=== PATIENT | male | born 1940 | race Caucasian/White ===

== ENCOUNTER 2016-09-01 09:07 | Emergency (ER) | payer OTHER, BC ==
[2016-09-01 09:25] VITALS: BP 160/76; BMI 29.5
--- NOTE | 2016-09-01 09:27 | DR.EXTPAIN ---
HPI - Time seen Time seen: 09:23 - PCP Primary Care Physician: BASSAM URBANO - Complaint/Symptoms Chief Complaint Doctor Comments: Patient states that he started having pain in the back of left knee on yesterday that has progressively gotten worse today. Denies trauma. Chief Complaint:: PT C/O PAIN TO THE BACK OF HIS LEFT KNEE".. - Source History Provided: Patient - Mode of arrival Mode of Arrival: Wheelchair - Timing Onset of Chief Complaint: 08/28/16 PMH - PMH Past Medical History: Yes Past Medical History: Headaches, Hypertension Past Medical History Comment: PSP .. Past Surgical History: Yes Surgical History: Appendectomy, Bowel Resection, CABG/Valve Surgery, Cholecystectomy, Tonsillectomy, Lithotripsy, Other Past Surgical History Comment: BYPASS WITHOUT STENTS ... - Family History History of Family Medical Conditions: Yes Family Medical History: [place], Hypertension - Social History Does patient currently use any type of tobacco product: No Have you used tobacco products in the last 12 months: No Type of Tobacco Use: None Does any household member use tobacco: No Alcohol Use: None Do you use any recreational Drugs:: No Lives With: Family Lives Where: Home - infectious screening In the last 2 months have you had wt loss of >10#?: NO Have you had fever, night sweats or hemotysis?: No Have you traveled outside the country in the last 6 months?: No Isolation: Standard ROS - Review of Systems Eyes: No Symptoms Reported ENTM: No Symptoms Reported, Hearing Loss Cardiovascular: No Symptoms Reported Gastrointestinal/Abdominal: No Symptoms Reported Genitourinary: No Symptoms Reported Neurological: No Symptoms Reported Musculoskeletal: No Symptoms Reported Integumentary: No Symptoms Reported Hematologic/Lymphatic: No Symptoms Reported Endocrine: No Symptoms Reported Psychiatric: No Symptoms Reported All Other Systems: Reviewed and Negative PE - Vital Signs Vitals: Temperature 98.6 F Pulse Rate 61 Respiratory Rate 20 Blood Pressure [Left Arm] 167/63 Blood Pressure [Right Arm] 166/78 Blood Pressure 160/76 O2 Sat by Pulse Oximetry 94 - General General Appearance: Alert - Head Head Exam: Normal Inspection - Eyes Eye exam: Normal Appearance, PERRL, EOMI - ENT ENT Exam: Normal Exam - Neck Neck Exam: Normal Inspection - Chest Chest Inspection: Normal Inspection - Respiratory Respiratory Exam: Normal Lung Sounds Bilat Respiratory Exam: Bilateral Clear to Auscultation - Cardiovascular Cardiovascular Exam: Regular Rate, Normal Rhythm - Extremities Extremities Exam: Normal Inspection - Upper Extremities Shoulder Exam: Normal Inspection Arm Exam: Normal Inspection Elbow Exam: Normal Inspection Forearm Exam: Normal Inspection Hand Exam: Normal Inspection Neuromotor Exam: Normal Exam Neurosensory Exam: Normal Exam Hand Tendon Exam: Flexor Digitorium Profundus (Location) Upper Ext. Vascular Exam: Capillary Refill - Lower Extremities Hip/Pelvis Exam: Normal Inspection Upper Leg Exam: Normal Inspection Knee Exam: Normal Inspection Lower Leg Exam: Normal Inspection, Tenderness (left superior gastrocnemius tenderness, no erythema or warmth) Ankle Exam: Normal Inspection Foot/Toe Exam: Normal Inspection Neurovascular/Tendon Exam: Normal Capillary Refill Gait Exam: Observed and Normal - Back Back Exam: Normal Inspection, Full ROM - Neurological Neurological Exam: Alert, Oriented X3, CN II-XII Intact - Psychiatric Psychiatric Exam: Normal Affect - Skin Skin Exam: Warm, Dry, Intact ROR - Labs Reviewed Laboratory Results Reviewed?: Yes Result Diagrams: 09/01/16 09:40 09/01/16 09:40 Laboratory: WBC 6.9 X10^3/uL (3.6-10.0) 09/01/16 09:40 RBC 4.47 X10^6/uL (4.7-6.0) L 09/01/16 09:40 Hgb 14.4 g/dL (13.5-18.0) 09/01/16 09:40 Hct 41.9 % (42.0-54.0) L 09/01/16 09:40 MCV 93.7 fL (80.0-100.0) 09/01/16 09:40 MCH 32.2 pg (27.0-34.0) 09/01/16 09:40 MCHC 34.4 g/dL (33.0-35.0) 09/01/16 09:40 RDW 13.7 % (11.6-16.5) 09/01/16 09:40 Plt Count 149 X10^3/uL (150.0-450.0) L 09/01/16 09:40 MPV 9.4 fL (7.4-11.0) 09/01/16 09:40 Neut % 69.1 % (42.0-75.0) 09/01/16 09:40 Lymph % 16.9 % (21.0-51.0) L 09/01/16 09:40 [place] % 8.8 % (0.0-13.0) 09/01/16 09:40 Eos % 4.1 % (0.9-2.9) H 09/01/16 09:40 Baso % 1.1 % (0.2-1.0) H 09/01/16 09:40 Neut # 4.8 x10^3/uL (2.2-4.8) 09/01/16 09:40 Lymph # 1.2 X10^3/uL (1.3-2.9) L 09/01/16 09:40 [place] # 0.6 x10^3/uL (0.3-0.8) 09/01/16 09:40 Eos # 0.3 x10^3/uL (0.0-0.2) H 09/01/16 09:40 Baso # 0.1 X10^3/uL (0.0-0.1) 09/01/16 09:40 Absolute Nucleated RBC 0.0 /100WBC 09/01/16 09:40 D-Dimer 1510 ng/mL (0-400) H* 09/01/16 09:40 Sodium 138 mmol/L (136-145) 09/01/16 09:40 Corrected Sodium 138 mmol/L (136-145) 09/01/16 09:40 Potassium 4.0 mmol/L (3.5-5.1) 09/01/16 09:40 Chloride 104 mmol/L (98-107) 09/01/16 09:40 Carbon Dioxide 28.5 mmol/L (21-32) 09/01/16 09:40 BUN 23 mg/dL (7-18) H 09/01/16 09:40 Creatinine 1.89 mg/dL (0.70-1.30) H 09/01/16 09:40 Est GFR (MDRD) Af Amer 45 (>60) L 09/01/16 09:40 Est GFR (MDRD) Non-Af 37 (>60) L 09/01/16 09:40 Glucose 119 mg/dL (65-99) H 09/01/16 09:40 Calcium 8.7 mg/dL (8.5-10.1) 09/01/16 09:40 Corrected Calcium TNP 09/01/16 09:40 Total Bilirubin 0.30 mg/dL (0.2-1.0) 09/01/16 09:40 AST 18 Units/L (15-37) 09/01/16 09:40 ALT 15 Units/L (12-78) 09/01/16 09:40 Alkaline Phosphatase 113 Units/L (46-116) 09/01/16 09:40 Total Protein 7.2 g/dL (6.4-8.2) 09/01/16 09:40 Albumin 3.4 g/dL (3.4-5.0) 09/01/16 09:40 Globulin 3.8 g/dL (2.5-4.5) 09/01/16 09:40 Albumin/Globulin Ratio 0.9 Ratio (1.1-2.1) L 09/01/16 09:40 - XRAY XRAY Interpreted by: Radiologist (Lower Extrtemity Venous Doppler Ultrasound: The deep venous system of the left lower extremity was evaluated from the level of the common femoral vein through the popliteal vein. Normal color flow and augmentation can be observed. In addition,normal compression is seen throughout the deep venous stystem. Impression: Negative for DVT.) - Diagnosis Discharge Problem: Leg pain, posterior Qualifiers: Laterality: right Qualified Code(s): M79.604 - Pain in right leg - Discharge Plan Condition: Stable - Follow ups/Referrals Follow ups/Referrals: Wayne Mejia [Primary Care Provider] - 3 days - Instructions
[2016-09-01 09:48] LABS: BASOPHILS # (AUTO) 0.1 X10^3/uL (0.0-0.1); BASOPHILS % (AUTO) 1.1 % (0.2-1.0); EOSINOPHILS # (AUTO) 0.3 x10^3/uL (0.0-0.2); EOSINOPHILS % (AUTO) 4.1 % (0.9-2.9); HEMATOCRIT 41.9 % (42.0-54.0); HEMOGLOBIN 14.4 g/dL (13.5-18.0); LYMPHOCYTES # (AUTO) 1.2 X10^3/uL (1.3-2.9); LYMPHOCYTES % (AUTO) 16.9 % (21.0-51.0); MEAN CORPUSCULAR HEMOGLOBIN 32.2 pg (27.0-34.0); MEAN CORPUSCULAR HGB CONC 34.4 g/dL (33.0-35.0); MEAN CORPUSCULAR VOLUME 93.7 fL (80.0-100.0); MEAN PLATELET VOLUME 9.4 fL (7.4-11.0); MONOCYTES # (AUTO) 0.6 x10^3/uL (0.3-0.8); MONOCYTES % (AUTO) 8.8 % (0.0-13.0); NEUTROPHILS # (AUTO) 4.8 x10^3/uL (2.2-4.8); NEUTROPHILS % (AUTO) 69.1 % (42.0-75.0); PLATELET COUNT 149 X10^3/uL (150.0-450.0); RED BLOOD COUNT 4.47 X10^6/uL (4.7-6.0); RED CELL DISTRIBUTION WIDTH 13.7 % (11.6-16.5); WHITE BLOOD COUNT 6.9 X10^3/uL (3.6-10.0)
[2016-09-01 10:01] LABS: ALANINE AMINOTRANSFERASE 15 Units/L (12-78); ALBUMIN 3.4 g/dL (3.4-5.0); ALKALINE PHOSPHATASE 113 Units/L (46-116); ASPARTATE AMINO TRANSFERASE 18 Units/L (15-37); BLOOD UREA NITROGEN 23 mg/dL (7-18); CALCIUM 8.7 mg/dL (8.5-10.1); CARBON DIOXIDE 28.5 mmol/L (21-32); CHLORIDE 104 mmol/L (98-107); COR NA(FOR HYPERGLY) 138 mmol/L (136-145); CREATININE 1.89 mg/dL (0.70-1.30); GLUCOSE 119 mg/dL (65-99); SODIUM 138 mmol/L (136-145); TOTAL PROTEIN 7.2 g/dL (6.4-8.2); eGFR BLACK RACES 45 (>60); eGFR NON BLACK RACES 37 (>60)
[2016-09-01 10:26] LABS: D DIMER 1510 ng/mL (0-400)
--- NOTE | 2016-09-01 11:34 | VAS ---
HISTORY: Left leg pain Study: Left lower extremity venous Doppler ultrasound Comparison: None TECHNIQUE: Multiple hardin scale and color flow Doppler images of the deep venous system were obtaine d of the left lower extremity. FINDINGS: The deep venous system of the left lower extremity was evaluated from the level of the common femora l vein through the popliteal vein. Normal color flow and augmentation can be observed. In addition , normal compression is seen throughout the deep venous system. IMPRESSION: 1. Negative for DVT. Reported By:
== END 2016-09-01 12:11 | disposition home or self-care (01) ==
LOC: ER 09:25
DX: M79.604 Pain in right leg (principal)
CPT/HCPCS: 36415; 80053; 85025; 85378; 93971; 99283

== ENCOUNTER 2016-11-21 01:55 | Observation (INO) | payer OTHER, BC ==
[2016-11-21] MEDS ORDERED: MORPHINE SULFATE INJ 4 MG ONE ×2 (02:11→02:21)
[2016-11-21] MEDS ORDERED: NS 1000 ML 1,000 ML ONE (02:11)
[2016-11-21] MEDS ORDERED: MORPHINE SULFATE INJ 4 MG IVP ONE ×2 (02:16→02:20)
--- NOTE | 2016-11-21 02:20 | DR.CP ---
HPI - Time Seen Time seen: 02:10 - Complaint Chief Complaint Doctor Comments: Patient states that he was in his usual state of health until last week when he purchuase a plow and had been plowing most of the day last week. Since then he has been very weak. Today he could not get off the commode due to weakness. brought him in to be evaluated. She reports that he had mid sternal chest and was very diaphoretic. and weak. He had a cath two years ago. He had five by-pass at [facility]. He denies smoking, drinking and recently started drinking coffee. PMH - PMH Past Medical History: Headaches, Hypertension Past Surgical History: Yes Surgical History: Appendectomy, Bowel Resection, CABG/Valve Surgery, Cholecystectomy, Tonsillectomy, Lithotripsy, Other - Family History Family Medical History: [place], Hypertension - Social History Do you use any recreational Drugs:: No ROS - Review of Systems Constitutional: negative: Diaphoresis Eyes: No Symptoms Reported ENTM: No Symptoms Reported Respiratoy: No Symptoms Reported Cardiovascular: See HPI, Chest Pain Gastrointestinal/Abdominal: No Symptoms Reported Genitourinary: No Symptoms Reported Neurological: No Symptoms Reported Musculoskeletal: No Symptoms Reported Integumentary: No Symptoms Reported Hematologic/Lymphatic: No Symptoms Reported Endocrine: No Symptoms Reported Psychiatric: No Symptoms Reported All Other Systems: Reviewed and Negative PE - Vitals Vitals: Pulse Rate [Apical] 70 Pulse Rate 70 Respiratory Rate 16 Blood Pressure [Left Arm] 100/55 Blood Pressure [Right Arm] 166/78 Blood Pressure 112/59 O2 Sat by Pulse Oximetry 97 - General Limitations: No Limitations General Appearance: Alert, In Distress - Head Head Exam: Normal Inspection, Atraumatic - Eyes Eye exam: Normal Appearance, PERRL, EOMI - ENT ENT Exam: Normal Exam, Normal Oropharynx - Chest Chest Inspection: Normal Inspection - Respiratory Respiratory Exam: Normal Lung Sounds Bilat Respiratory Exam: Bilateral Clear to Auscultation - Cardiovascular Cardiovascular Exam: Regular Rate, Normal Rhythm Pulse: Normal, Radial Edema: 1 (+) - Abdominal Exam Abdominal Exam: Normal Inspection, Normal Bowel Sounds Abdominal Tenderness: negative: RUQ, RLQ, LUQ, LLQ, Epigastrium, Suprapubic, Diffuse, Mild, Moderate, Severe, Other - Extremities Extremities Exam: Normal Inspection, Full ROM - Back Back Exam: Normal Inspection - Neurologic Neurological Exam: Alert, Oriented X3, CN II-XII Intact - Psychiatric Psychiatric Exam: Normal Affect, Normal Mood - Skin Skin Exam: Warm, Dry, Intact Course - Reevaluation 1st: Improved - Consultation Called: 15:00 (Dr Ardon recommended admission for chest pain protocol) ROR - Labs Reviewed Result Diagrams: 11/21/16 02:06 11/21/16 02:06 Laboratory: WBC 7.2 X10^3/uL (3.6-10.0) 11/21/16 02:06 RBC 4.33 X10^6/uL (4.7-6.0) L 11/21/16 02:06 Hgb 14.0 g/dL (13.5-18.0) 11/21/16 02:06 Hct 41.3 % (42.0-54.0) L 11/21/16 02:06 MCV 95.3 fL (80.0-100.0) 11/21/16 02:06 MCH 32.3 pg (27.0-34.0) 11/21/16 02:06 MCHC 33.9 g/dL (33.0-35.0) 11/21/16 02:06 RDW 13.8 % (11.6-16.5) 11/21/16 02:06 Plt Count 160 X10^3/uL (150.0-450.0) 11/21/16 02:06 MPV 9.5 fL (7.4-11.0) 11/21/16 02:06 Neut % 67.0 % (42.0-75.0) 11/21/16 02:06 Lymph % 16.8 % (21.0-51.0) L 11/21/16 02:06 [place] % 10.7 % (0.0-13.0) 11/21/16 02:06 Eos % 4.5 % (0.9-2.9) H 11/21/16 02:06 Baso % 1.0 % (0.2-1.0) 11/21/16 02:06 Neut # 4.8 x10^3/uL (2.2-4.8) 11/21/16 02:06 Lymph # 1.2 X10^3/uL (1.3-2.9) L 11/21/16 02:06 [place] # 0.8 x10^3/uL (0.3-0.8) 11/21/16 02:06 Eos # 0.3 x10^3/uL (0.0-0.2) H 11/21/16 02:06 Baso # 0.1 X10^3/uL (0.0-0.1) 11/21/16 02:06 Absolute Nucleated RBC 0.1 /100WBC 11/21/16 02:06 INR Target Range - 11/21/16 02:06 INR 1.06 (0.8-1.3) 11/21/16 02:06 Sodium 138 mmol/L (136-145) 11/21/16 02:06 Corrected Sodium 139 mmol/L (136-145) 11/21/16 02:06 Potassium 4.0 mmol/L (3.5-5.1) 11/21/16 02:06 Chloride 104 mmol/L (98-107) 11/21/16 02:06 Carbon Dioxide 22.1 mmol/L (21-32) 11/21/16 02:06 BUN 25 mg/dL (7-18) H 11/21/16 02:06 Creatinine 2.15 mg/dL (0.70-1.30) H 11/21/16 02:06 Est GFR (MDRD) Af Amer 39 (>60) L 11/21/16 02:06 Est GFR (MDRD) Non-Af 32 (>60) L 11/21/16 02:06 Glucose 147 mg/dL (65-99) H 11/21/16 02:06 Calcium 8.6 mg/dL (8.5-10.1) 11/21/16 02:06 Corrected Calcium TNP 11/21/16 02:06 Magnesium 1.7 mg/dL (1.7-2.9) 11/21/16 02:06 Total Bilirubin 0.40 mg/dL (0.2-1.0) 11/21/16 02:06 AST 18 Units/L (15-37) 11/21/16 02:06 ALT 9 Units/L (12-78) L 11/21/16 02:06 Alkaline Phosphatase 126 Units/L (46-116) H 11/21/16 02:06 Creatine Kinase 97 Units/L (39-308) 11/21/16 02:06 CK-MB (CK-2) < 1.0 ng/mL (0-4.0) 11/21/16 02:06 CK/CKMB % Calc 1.0 % (<4) 11/21/16 02:06 Troponin I 0.04 ng/mL (0-1.5) 11/21/16 02:06 Total Protein 6.9 g/dL (6.4-8.2) 11/21/16 02:06 Albumin 3.4 g/dL (3.4-5.0) 11/21/16 02:06 Globulin 3.5 g/dL (2.5-4.5) 11/21/16 02:06 Albumin/Globulin Ratio 1.0 Ratio (1.1-2.1) L 11/21/16 02:06 - XRAY XRAY Interpreted by: Radiologist (Chest: There is no pneumothorax. There is cardiomegaly with mild increased interstitial markings. Left lower lung infiltrate possible. Impression: Cardiomegaly with chronic lung change without severe edema. Left lung infiltrate not excluded. Follow up with PA and lateral chest) - Diagnosis Discharge Problem: Chest pain, mid sternal - Discharge Plan Condition: Stable - Follow ups/Referrals Follow ups/Referrals: Wayne Mejia [Primary Care Provider] - 3 days - Instructions
[2016-11-21 02:27] LABS: BASOPHILS # (AUTO) 0.1 X10^3/uL (0.0-0.1); EOSINOPHILS # (AUTO) 0.3 x10^3/uL (0.0-0.2); EOSINOPHILS % (AUTO) 4.5 % (0.9-2.9); HEMATOCRIT 41.3 % (42.0-54.0); LYMPHOCYTES # (AUTO) 1.2 X10^3/uL (1.3-2.9); LYMPHOCYTES % (AUTO) 16.8 % (21.0-51.0); MEAN CORPUSCULAR HEMOGLOBIN 32.3 pg (27.0-34.0); MEAN CORPUSCULAR HGB CONC 33.9 g/dL (33.0-35.0); MEAN CORPUSCULAR VOLUME 95.3 fL (80.0-100.0); MEAN PLATELET VOLUME 9.5 fL (7.4-11.0); MONOCYTES # (AUTO) 0.8 x10^3/uL (0.3-0.8); MONOCYTES % (AUTO) 10.7 % (0.0-13.0); NEUTROPHILS # (AUTO) 4.8 x10^3/uL (2.2-4.8); PLATELET COUNT 160 X10^3/uL (150.0-450.0); RED BLOOD COUNT 4.33 X10^6/uL (4.7-6.0); RED CELL DISTRIBUTION WIDTH 13.8 % (11.6-16.5); WHITE BLOOD COUNT 7.2 X10^3/uL (3.6-10.0)
[2016-11-21 02:40] LABS: BLOOD UREA NITROGEN 25 mg/dL (7-18); CALCIUM 8.6 mg/dL (8.5-10.1); CARBON DIOXIDE 22.1 mmol/L (21-32); CHLORIDE 104 mmol/L (98-107); COR NA(FOR HYPERGLY) 139 mmol/L (136-145); CREATININE 2.15 mg/dL (0.70-1.30); SODIUM 138 mmol/L (136-145); TROPONIN I 0.04 ng/mL (0-1.5); eGFR BLACK RACES 39 (>60); eGFR NON BLACK RACES 32 (>60)
[2016-11-21 02:59] LABS: ALANINE AMINOTRANSFERASE 9 Units/L (12-78); ALBUMIN 3.4 g/dL (3.4-5.0); ALKALINE PHOSPHATASE 126 Units/L (46-116); ASPARTATE AMINO TRANSFERASE 18 Units/L (15-37); CREATINE KINASE 97 Units/L (39-308); CREATINE KINASE MB < 1.0 ng/mL (0-4.0); MAGNESIUM 1.7 mg/dL (1.7-2.9); TOTAL PROTEIN 6.9 g/dL (6.4-8.2)
[2016-11-21] MEDS ORDERED: NS 1000 ML 1,000 ML IV SCH ×2 (03:00→06:00)
--- NOTE | 2016-11-21 04:14 | RAD ---
Six chest AP portable Indication: Chest pain Comparison: 05/17/2014. Findings: There is no pneumothorax. There is cardiomegaly with mild increased interstitial markings. Left lower lung infiltrate possible. Impression: Cardiomegaly with chronic lung change without severe edema. Left lung infiltrate not excl uded. Follow-up with PA and lateral chest. Reported By:
[2016-11-21] MEDS ORDERED: NS 1000 ML 1,000 ML IV ONE (04:26)
[2016-11-21] MEDS ORDERED: LASIX IVP ONE (04:35)
[2016-11-21] MEDS ORDERED: LASIX ONE (04:42)
[2016-11-21 06:27] VITALS: BMI 30.7
[2016-11-21 06:32] LABS: BILIRUBIN,URINE NEGATIVE (NEGATIVE); BLOOD/HEMOGLOBIN,URINE NEGATIVE (NEGATIVE); GLUCOSE, URINE NEGATIVE (NEGATIVE); KETONES,URINE NEGATIVE (NEGATIVE); LEUKOCYTE ESTERASE ,URINE NEGATIVE (NEGATIVE); NITRITES,URINE NEGATIVE (NEGATIVE); PROTEIN,URINE NEGATIVE (NEGATIVE); UROBILINOGEN,URINE NORMAL (NORMAL)
[2016-11-21] MEDS: NEURONTIN TAB 600 MG PO SCH ×3 (06:43→21:31)
[2016-11-21] MEDS: SINEMET (PLAIN) 25/100 MG PO SCH ×3 (06:43→21:32)
[2016-11-21 07:12] LABS: APPEARANCE,URINE CLEAR (CLEAR); COLOR,URINE YELLOW (YELLOW)
[2016-11-21 07:13] LABS: BACTERIA,URINE NEGATIVE /HPF (NEGATIVE); RBC,URINE NONE SEEN /HPF (NEGATIVE); SQUAMOUS EPITHELIAL CELL,UR RARE /HPF (NEGATIVE)
[2016-11-21] MEDS: MORPHINE SULFATE INJ 2 MG INJ IVP PRN (07:46)
[2016-11-21] MEDS ORDERED: PATIENT'S HOME MEDICATION (Losartan Potassium [Losartan Potassium] 1 TAB) PO SCH (09:00)
[2016-11-21] MEDS ORDERED: PATIENT'S HOME MEDICATION (Cholecalciferol (Vitamin D3) [Vitamin D3] 1 TAB) PO SCH (09:00)
[2016-11-21] MEDS: DUONEB 0.5 MG/3 MG NEB SCH ×4 (09:00→20:58)
[2016-11-21 09:09] LABS: CKMB % 1.2 % (<4); CREATINE KINASE MB 1.2 ng/mL (0-4.0); TROPONIN I 0.08 ng/mL (0-1.5)
[2016-11-21] MEDS ORDERED: AYR NASAL DROPS ONE (09:17)
[2016-11-21] MEDS: VITAMIN D3 PO SCH (09:21)
[2016-11-21] MEDS: ASPIRIN EC 81 MG PO SCH (09:22)
[2016-11-21] MEDS: TOPROL XL PO SCH (09:22)
[2016-11-21] MEDS: ZETIA TAB 10 MG PO SCH (09:22)
[2016-11-21] MEDS: SYNTHROID 175 mcg TAB PO SCH (09:22)
[2016-11-21] MEDS: COZAAR PO SCH (09:22)
[2016-11-21] MEDS: TORADOL 60 MG VIAL IM ONE ×2 (10:00→10:42)
--- NOTE | 2016-11-21 10:38 | DR.H&P ---
H&P - History & Physical for Day of: H&P Date: 11/21/16 - Chief Complaint Chief Complaint: CHEST PAIN - Allergies Allergies/Adverse Reactions: Allergies Allergy/AdvReac Type Severity Reaction Status Date / Time codeine Allergy Verified 11/21/16 02:25 esomeprazole Allergy Verified 11/21/16 02:25 hydrocodone Allergy Verified 11/21/16 02:25 omeprazole Allergy Verified 11/21/16 02:25 oxycodone Allergy Verified 11/21/16 02:25 Cheggkm-Dvu-Cgv Reductase Allergy Verified 11/21/16 02:25 Inhibitor tramadol Allergy Verified 11/21/16 02:25 zolpidem [From Ambien] Allergy Verified 11/21/16 02:25 IVP DYE Allergy Intermediate Uncoded 11/21/16 02:25 - History of Present Illness History of Present Illness: SI A 76 YEAR OLD PATIENT OF OURS WHO PRESENTED TO THE EMERGENCY ROOM VIA EMS WITH COMPLAINTS OF MID STERNAL CHEST PAIN THAT RADIATES TO THE LEFT ARM, SHORTNESS OF BREATH, AND GENERALIZED WEAKNESS. ON ARRIVAL TO THE ER, PATIENT WAS DIAPHORETIC AND WEAK. PATIENT REPORTS THAT PAIN IS STABBING IN CHARACTERISTIC AND RATES PAIN 2/10. PATIENTS REPORTS THAT PATIENT HAS BEEN WORKING OUTSIDE ON THE TRACTOR MOST OF THE WEEK. HE REPORTS A HISTORY OF CORONARY ARTERY DISEASE. HE HAS HAD FIVE BYPASSED IN THE PAST. ON EXAMINATION, LUNGS ARE NOTED CLEAR TO AUSCULTATION. ABDOMEN IS SOFT, ROUND, AND NON-TENDER WITH NORMAL BOWEL SOUNDS NOTED IN ALL QUADRANTS. ON ARRIVAL, VITAL SIGNS WER [id number]%-146/81. LABS, XRAY, AND EKG WERE OBTAINED. ABNORMAL LAB VALUES INCLUDE THE FOLLOWING: RBC 4.33, HCT 41.3, BUN 25 , CREATININE 2.15, GLUCOSE 147, ALT 9, ALK PHOS 126. CARDIAC PROFILES NEGATIVE AT THIS TIME. EKG REPORTED SINUS RHYTHM, RBBB WITH HR 71. CHEST XRAY REPORTED CARDIOMEGALY WITH CHRONIC LUNG CHANGES WITHOUT SEVERE EDEMA. LEFT LUNG INFILTRATE NOT EXCLUDED. PATIENT WAS GIVEN MORPHINE 4MG IV, NORMAL SALINE BOLUS , AND LASIX 20MG IV X 1 IN THE ER. WE ADMITTED PATIENT FOR FURTHER EVALUATION AND TREATMENT TO RULE OUT ACUTE MIOCARDIAL INFARCTION. WE PLAN TO OBTAIN SERIAL CARDIAC ENZYMES AND EKGS. WE WILL FOLLOW UP WITH AM LABS AND CONTINUE TO MONITOR PATIENT. - Past Medical History Past Medical History: Headaches, Hypertension Additional Medical History: Hx Diverticulosis, Atrial Fibrillation - Past Surgical History Surgical History: Appendectomy, Bowel Resection, CABG/Valve Surgery, Cholecystectomy, Lithotripsy, Other Additional Surgical History: Cardiac Ablation - Family History Family Medical History: [place], Hypertension - Social History Does patient currently use any type of tobacco product: No Have you used tobacco products in the last 12 months: No Type of Tobacco Use: None Does any household member use tobacco: No Alcohol Use: None Drug Use: None - Review of Systems Constitutional: Weakness Eyes: No Symptoms Reported ENT: No Symptoms Reported Respiratory: No Symptoms Reported, Shortness of Breath Cardiovascular: Chest Pain, See HPI Gastrointestinal: No Symptoms Reported Genitourinary: No Symptoms Reported Musculoskeletal: No Symptoms Reported Skin: No Symptoms Reported Neurological: Weakness - Physical Exam Vital Signs: Temperature 97.3 F Pulse Rate [Left Brachial] 105 Pulse Rate [Apical] 71 Pulse Rate 70 Respiratory Rate 22 Blood Pressure [Left Arm] 146/81 Blood Pressure [Right Arm] 166/78 Blood Pressure 112/59 O2 Sat by Pulse Oximetry 95 Oriented: Normal Eyes: Normal Ear: Normal Nose: Normal Throat: Normal Respiratory: Clear Throughout Cardiovascular: Normal : Normal Auscultation: Bowel Sounds: Normal Palpation: Normal Tenderness: Normal Skin: Normal Musculoskeletal: Normal Psychiatric: Normal Mood Description: Calm Affect: Normal Speech Pattern: Clear - Assessment/Plan (1) Chest pain Qualifiers: Chest pain type: unspecified Qualified Code(s): R07.9 - Chest pain, unspecified Status: Acute Plan: TELEMETRY, ASA 81MG DAILY, MORPHINE 1-2MG IV Q4H PRN, SERIAL CARDIAC ENZYMES AND EKG, CONTINUE TO MONITOR
[2016-11-21] MEDS: LEVAQUIN PREMIX IV 500 MG 500 MG/100 ML BAG IV SCH (10:42)
[2016-11-21] MEDS: FORTAZ or TAZICEF INJ 1 GM in NS 50 ML IV + SPIKE MINIBAG* 50 ML IV SCH ×3 (10:42→21:32)
[2016-11-21] MEDS ORDERED: NS 1/2 1000 ML IV 1,000 ML IV ONE (11:19)
[2016-11-21] MEDS: ROBITUSSIN DM PO SCH ×3 (14:18→21:30)
[2016-11-21] MEDS: NS 1/2 1000 ML IV 1,000 ML IV SCH (14:21)
[2016-11-21 14:29] LABS: CKMB % 1.3 % (<4); CREATINE KINASE MB 1.2 ng/mL (0-4.0); TROPONIN I 0.08 ng/mL (0-1.5)
[2016-11-21] MEDS ORDERED: DOCUSATE SODIUM PO SCH (21:00)
[2016-11-21] MEDS ORDERED: HYTRIN PO SCH (21:00)
[2016-11-21] MEDS ORDERED: TERAZOSIN HCL PO SCH (21:00)
[2016-11-22] MEDS: DUONEB 0.5 MG/3 MG NEB SCH ×3 (01:19→08:23)
[2016-11-22] MEDS: MORPHINE SULFATE INJ 2 MG INJ IVP PRN (03:47)
[2016-11-22] MEDS: FORTAZ or TAZICEF INJ 1 GM in NS 50 ML IV + SPIKE MINIBAG* 50 ML IV SCH (05:24)
[2016-11-22] MEDS: NEURONTIN TAB 600 MG PO SCH (05:24)
[2016-11-22] MEDS: SINEMET (PLAIN) 25/100 MG PO SCH (05:27)
[2016-11-22 05:32] LABS: BASOPHILS # (AUTO) 0.1 X10^3/uL (0.0-0.1); BASOPHILS % (AUTO) 0.9 % (0.2-1.0); EOSINOPHILS # (AUTO) 0.2 x10^3/uL (0.0-0.2); HEMATOCRIT 37.8 % (42.0-54.0); LYMPHOCYTES # (AUTO) 1.3 X10^3/uL (1.3-2.9); LYMPHOCYTES % (AUTO) 17.3 % (21.0-51.0); MEAN CORPUSCULAR HEMOGLOBIN 32.7 pg (27.0-34.0); MEAN CORPUSCULAR HGB CONC 34.5 g/dL (33.0-35.0); MEAN CORPUSCULAR VOLUME 94.8 fL (80.0-100.0); MEAN PLATELET VOLUME 9.8 fL (7.4-11.0); MONOCYTES # (AUTO) 0.8 x10^3/uL (0.3-0.8); MONOCYTES % (AUTO) 11.1 % (0.0-13.0); NEUTROPHILS # (AUTO) 4.9 x10^3/uL (2.2-4.8); NEUTROPHILS % (AUTO) 67.7 % (42.0-75.0); PLATELET COUNT 145 X10^3/uL (150.0-450.0); RED BLOOD COUNT 3.98 X10^6/uL (4.7-6.0); RED CELL DISTRIBUTION WIDTH 14.2 % (11.6-16.5); WHITE BLOOD COUNT 7.3 X10^3/uL (3.6-10.0)
[2016-11-22 06:28] LABS: ALANINE AMINOTRANSFERASE 10 Units/L (12-78); ALBUMIN 2.9 g/dL (3.4-5.0); ALKALINE PHOSPHATASE 114 Units/L (46-116); ASPARTATE AMINO TRANSFERASE 16 Units/L (15-37); BLOOD UREA NITROGEN 23 mg/dL (7-18); CALCIUM 8.2 mg/dL (8.5-10.1); CARBON DIOXIDE 24.1 mmol/L (21-32); CHLORIDE 107 mmol/L (98-107); CHOL/HDL RATIO 5.1 (0.0-5.0); CHOLESTEROL 133 mg/dL (0-200); COR CA(FOR HYPOALB) 9.1 mg/dL (8.5-10.1); CREATININE 1.91 mg/dL (0.70-1.30); HDL CHOLESTEROL 26 mg/dL (40-60); SODIUM 141 mmol/L (136-145); TOTAL PROTEIN 6.2 g/dL (6.4-8.2); TRIGLYCERIDES 213 mg/dL (0-150); eGFR BLACK RACES 44 (>60); eGFR NON BLACK RACES 36 (>60)
[2016-11-22] MEDS ORDERED: TORADOL 30 MG VIAL IVP SCH (08:00)
[2016-11-22 08:12] LABS: CKMB % 1.4 % (<4); CREATINE KINASE 71 Units/L (39-308); CREATINE KINASE MB < 1.0 ng/mL (0-4.0); TROPONIN I 0.05 ng/mL (0-1.5)
[2016-11-22] MEDS: ASPIRIN EC 81 MG PO SCH (08:41)
[2016-11-22] MEDS: ROBITUSSIN DM PO SCH (08:42)
[2016-11-22] MEDS: COZAAR PO SCH (08:42)
[2016-11-22] MEDS: SYNTHROID 175 mcg TAB PO SCH (08:43)
[2016-11-22] MEDS: VITAMIN D3 PO SCH (08:43)
[2016-11-22] MEDS: ZETIA TAB 10 MG PO SCH (08:43)
[2016-11-22] MEDS: TOPROL XL PO SCH (08:43)
[2016-11-22] MEDS: NS 1/2 1000 ML IV 1,000 ML IV SCH (08:44)
[2016-11-22] MEDS: LEVAQUIN PREMIX IV 500 MG 500 MG/100 ML BAG IV SCH (08:44)
[2016-11-22] MEDS ORDERED: NS 1/2 1000 ML IV 1,000 ML IV ONE (08:45)
[2016-11-22 11:58] VITALS: BP 137/65
== END 2016-11-22 11:05 | disposition home or self-care (01) ==
LOC: ER 01:55 → OBS 05:31 → MED/SURG 17:32
PROVIDERS: ADMIT Obstetrics & Gynecology Obstetrics; ATTEND Internal Medicine
DX: R07.89 Other chest pain (principal); I10 Essential (primary) hypertension; R53.1 Weakness; I51.7 Cardiomegaly; R94.31 Abnormal electrocardiogram [ECG] [EKG]; R06.02 Shortness of breath; M79.602 Pain in left arm; Z79.01 Long term (current) use of anticoagulants
CPT/HCPCS: 36415; 71010; 80053; 80061; 81001; 82550; 82553; 83735; 84484; 84550; 85025; 85610; 87040; 93005; 94640; 94760; 96365; 96367; 96374; 96375; 99284; A4216; A4218; A4222; G0378; J0713; J1885; J1940; J1956; J2270; J7620

== ENCOUNTER 2017-05-08 16:36 | Observation (INO) | payer OTHER, BC ==
--- NOTE | 2017-05-08 16:46 | DR.DIZZY ---
HPI - Time seen Time seen: 16:40 - Complaint Chief Complaint Doctor Comments: Patient had brief syncopal episode hit head when fell to floor, fall broke by bystanders. Patient became diaphoretic. He has an event monitor on chest. - Duration Duration: Unknown - Location of Weakness Weakness Location: Generalized - Context Does pt take pot. toxic medication?: No History of: None Stroke Symptoms: None - Severity Severity: Normal activity level - Modifying factors Worsens: Nothing - Associated signs and symptoms Associated Signs and Symptoms: Weak PMH - PMH Past Medical History: Coronary Artery Disease, Headaches, Hypertension Past Surgical History: Yes Surgical History: Appendectomy, Bowel Resection, CABG/Valve Surgery, Cholecystectomy, Lithotripsy, Other - Family History Family Medical History: [place], Hypertension - Social History Do you use any recreational Drugs:: No ROS - Review of Systems Eyes: No Symptoms Reported ENTM: No Symptoms Reported Respiratoy: No Symptoms Reported Cardiovascular: No Symptoms Reported Gastrointestinal/Abdominal: No Symptoms Reported Genitourinary: No Symptoms Reported Neurological: No Symptoms Reported Musculoskeletal: No Symptoms Reported Integumentary: No Symptoms Reported Hematologic/Lymphatic: No Symptoms Reported Endocrine: No Symptoms Reported Psychiatric: No Symptoms Reported All Other Systems: Reviewed and Negative PE - Vital Signs Vitals: Temperature 97.9 F Pulse Rate [Right Radial] 73 Pulse Rate 81 Respiratory Rate 18 Blood Pressure [Left Arm] 176/93 Blood Pressure [Right Arm] 137/65 Blood Pressure 187/91 O2 Sat by Pulse Oximetry 99 - General Limitations: Physical Limitation General Appearance: Alert - Head Head Exam: Normal Inspection, Atraumatic - Eyes Eye exam: Normal Appearance, PERRL, EOMI Pupils: Regular, Round: Bilateral Sclera/Conjunctival: Normal Inspection: Bilateral Anterior Chamber: Normal Inspection: Bilateral Posterior Chamber: Deferred: Bilateral - ENT ENT Exam: Normal Exam, Normal Oropharynx - Neck Neck Exam: Normal Inspection, Full ROM - Chest Chest Inspection: Normal Inspection, Symmetric Chest Wall Rise - Respiratory Respiratory Exam: Normal Lung Sounds Bilat, Accessory Muscle Use Respiratory Exam: Bilateral Clear to Auscultation - Cardiovascular Cardiovascular Exam: Regular Rate, Normal Rhythm - Abdominal Exam Abdominal Exam: Normal Inspection, Normal Bowel Sounds Abdominal Tenderness: negative: RUQ, RLQ, LUQ, LLQ, Epigastrium, Suprapubic, Diffuse, Mild, Moderate, Severe, Other - Rectal Rectal Exam: Deferred - Extremeties Extremities Exam: Normal Inspection - Back Back Exam: Normal Inspection, Full ROM - Neurologic Neurological Exam: Alert, Oriented X3, CN II-XII Intact Sensory Exam Upper Extremity: Light Touch: Normal Sensory Exam Lower Extremity: Light Touch: Normal - Psychiatric Psychiatric Exam: Normal Affect - Skin Skin Exam: Warm, Dry, Intact Course - Reevaluation 1st: Improved - Consultation Called: 18:50 (Dr Lombardo agreed to admit for observation) ROR - Labs Reviewed Result Diagrams: 05/08/17 17:05 05/08/17 17:05 Laboratory: WBC 6.5 X10^3/uL (3.6-10.0) 05/08/17 17:05 RBC 4.43 X10^6/uL (4.7-6.0) L 05/08/17 17:05 Hgb 13.7 g/dL (13.5-18.0) 05/08/17 17:05 Hct 40.8 % (42.0-54.0) L 05/08/17 17:05 MCV 92.2 fL (80.0-100.0) 05/08/17 17:05 MCH 30.9 pg (27.0-34.0) 05/08/17 17:05 MCHC 33.6 g/dL (33.0-35.0) 05/08/17 17:05 RDW 14.2 % (11.6-16.5) 05/08/17 17:05 Plt Count 187 X10^3/uL (150.0-450.0) 05/08/17 17:05 MPV 8.4 fL (7.4-11.0) 05/08/17 17:05 Neut % (Auto) 73.5 % (42.0-75.0) 05/08/17 17:05 Lymph % (Auto) 12.6 % (21.0-51.0) L 05/08/17 17:05 [place] % (Auto) 11.6 % (0.0-13.0) 05/08/17 17:05 Eos % (Auto) 1.5 % (0.9-2.9) 05/08/17 17:05 Baso % (Auto) 0.8 % (0.2-1.0) 05/08/17 17:05 Neut # (Auto) 4.8 x10^3/uL (2.2-4.8) 05/08/17 17:05 Lymph # (Auto) 0.8 X10^3/uL (1.3-2.9) L 05/08/17 17:05 [place] # (Auto) 0.8 x10^3/uL (0.3-0.8) 05/08/17 17:05 Eos # (Auto) 0.1 x10^3/uL (0.0-0.2) 05/08/17 17:05 Baso # (Auto) 0.1 X10^3/uL (0.0-0.1) 05/08/17 17:05 Absolute Nucleated RBC 0.0 /100WBC 05/08/17 17:05 INR Target Range - 05/08/17 17:05 INR 1.12 (0.8-1.3) 05/08/17 17:05 APTT 30.7 SECONDS (22.9-36.5) 05/08/17 17:05 PTT Comment - 05/08/17 17:05 Sodium 139 mmol/L (136-145) 05/08/17 17:05 Corrected Sodium 140 mmol/L (136-145) 05/08/17 17:05 Potassium 3.8 mmol/L (3.5-5.1) 05/08/17 17:05 Chloride 103 mmol/L (98-107) 05/08/17 17:05 Carbon Dioxide 26.2 mmol/L (21-32) 05/08/17 17:05 BUN 18 mg/dL (7-18) 05/08/17 17:05 Creatinine 1.82 mg/dL (0.70-1.30) H 05/08/17 17:05 Est GFR (MDRD) Af Amer 47 (>60) L 05/08/17 17:05 Est GFR (MDRD) Non-Af 39 (>60) L 05/08/17 17:05 Glucose 126 mg/dL (65-99) H 05/08/17 17:05 Calcium 8.2 mg/dL (8.5-10.1) L 05/08/17 17:05 Corrected Calcium 8.8 mg/dL (8.5-10.1) 05/08/17 17:05 Magnesium 1.7 mg/dL (1.7-2.9) 05/08/17 17:05 Total Bilirubin 0.30 mg/dL (0.2-1.0) 05/08/17 17:05 AST 13 Units/L (15-37) L 05/08/17 17:05 ALT 12 Units/L (12-78) 05/08/17 17:05 Alkaline Phosphatase 118 Units/L (46-116) H 05/08/17 17:05 Creatine Kinase 47 Units/L (39-308) 05/08/17 17:05 CK-MB (CK-2) < 1.0 ng/mL (0-4.0) 05/08/17 17:05 CK/CKMB % Calc 2.1 % (<4) 05/08/17 17:05 Troponin I 0.02 ng/mL (0-1.5) 05/08/17 17:05 Total Protein 7.1 g/dL (6.4-8.2) 05/08/17 17:05 Albumin 3.3 g/dL (3.4-5.0) L 05/08/17 17:05 Globulin 3.8 g/dL (2.5-4.5) 05/08/17 17:05 Albumin/Globulin Ratio 0.9 Ratio (1.1-2.1) L 05/08/17 17:05 - XRAY XRAY Interpreted by: Radiologist (CT Brain w/o:Chronic cerebral atrophy and nonspecific white matter changes likely duye to chronic microvascular disease. No acute intracranial abnormality is identified. Chest:No acute findings) - Diagnosis Discharge Problem: Syncope Qualifiers: Syncope type: unspecified Qualified Code(s): R55 - Syncope and collapse - Discharge Plan Condition: Stable - Follow ups/Referrals Follow ups/Referrals: Wayne Mejia [Primary Care Provider] - 3 days - Instructions
[2017-05-08 16:51] VITALS: BMI 29.9
--- NOTE | 2017-05-08 17:13 | RAD ---
Examination: Portable AP chest History: Syncope Comparison reference 11/22/2016 Findings: Continued normal transverse heart diameter with findings of sternotomy. Lungs and pleural s paces remain grossly clear. There is no evidence for pneumonia or pneumothorax. Impression: No change; no acute findings. Reported By:
[2017-05-08 17:17] LABS: BASOPHILS # (AUTO) 0.1 X10^3/uL (0.0-0.1); BASOPHILS % (AUTO) 0.8 % (0.2-1.0); EOSINOPHILS # (AUTO) 0.1 x10^3/uL (0.0-0.2); EOSINOPHILS % (AUTO) 1.5 % (0.9-2.9); HEMATOCRIT 40.8 % (42.0-54.0); HEMOGLOBIN 13.7 g/dL (13.5-18.0); LYMPHOCYTES # (AUTO) 0.8 X10^3/uL (1.3-2.9); LYMPHOCYTES % (AUTO) 12.6 % (21.0-51.0); MEAN CORPUSCULAR HEMOGLOBIN 30.9 pg (27.0-34.0); MEAN CORPUSCULAR HGB CONC 33.6 g/dL (33.0-35.0); MEAN CORPUSCULAR VOLUME 92.2 fL (80.0-100.0); MEAN PLATELET VOLUME 8.4 fL (7.4-11.0); MONOCYTES # (AUTO) 0.8 x10^3/uL (0.3-0.8); MONOCYTES % (AUTO) 11.6 % (0.0-13.0); NEUTROPHILS # (AUTO) 4.8 x10^3/uL (2.2-4.8); NEUTROPHILS % (AUTO) 73.5 % (42.0-75.0); PLATELET COUNT 187 X10^3/uL (150.0-450.0); RED BLOOD COUNT 4.43 X10^6/uL (4.7-6.0); RED CELL DISTRIBUTION WIDTH 14.2 % (11.6-16.5); WHITE BLOOD COUNT 6.5 X10^3/uL (3.6-10.0)
[2017-05-08 17:34] LABS: BLOOD UREA NITROGEN 18 mg/dL (7-18); CALCIUM 8.2 mg/dL (8.5-10.1); CARBON DIOXIDE 26.2 mmol/L (21-32); CHLORIDE 103 mmol/L (98-107); COR NA(FOR HYPERGLY) 140 mmol/L (136-145); CREATININE 1.82 mg/dL (0.70-1.30); SODIUM 139 mmol/L (136-145); TROPONIN I 0.02 ng/mL (0-1.5); eGFR BLACK RACES 47 (>60); eGFR NON BLACK RACES 39 (>60)
[2017-05-08 17:39] LABS: ALANINE AMINOTRANSFERASE 12 Units/L (12-78); ALBUMIN 3.3 g/dL (3.4-5.0); ALKALINE PHOSPHATASE 118 Units/L (46-116); ASPARTATE AMINO TRANSFERASE 13 Units/L (15-37); CKMB % 2.1 % (<4); COR CA(FOR HYPOALB) 8.8 mg/dL (8.5-10.1); CREATINE KINASE 47 Units/L (39-308); CREATINE KINASE MB < 1.0 ng/mL (0-4.0); MAGNESIUM 1.7 mg/dL (1.7-2.9); TOTAL PROTEIN 7.1 g/dL (6.4-8.2)
--- NOTE | 2017-05-08 18:08 | CT ---
HISTORY: Dizziness, weakness Study: CT brain without contrast Comparison: 09/09/2014 Technique: Multiple axial images of the brain were obtained from the skull base to the vertex without administra tion of IV contrast. Dose reduction techniques including Automated Exposure Control (AEC) and adjust ment of mA and kV were utilized. Findings: There is chronic atrophy and nonspecific white matter hypoattenuation likely related to microvascular ischemic changes. No evidence of acute hemorrhage, midline shift, mass effect or abnormal extra-axi al fluid collection. The ventricular system is symmetric and nondilated. The soft tissues and osseo us structures are unremarkable. The visualized paranasal sinuses are clear. Chronic fluid is seen in the right mastoid air cells. IMPRESSION: 1. Chronic cerebral atrophy and nonspecific white matter changes likely due to chronic microvascular disease. No acute intracranial abnormality is identified. Reported By:
[2017-05-08] MEDS: NS 1000 ML 1,000 ML IV SCH (20:34)
[2017-05-08 23:35] LABS: CKMB % 2.2 % (<4); CREATINE KINASE 45 Units/L (39-308); CREATINE KINASE MB < 1.0 ng/mL (0-4.0); TROPONIN I < 0.02 ng/mL (0-1.5)
[2017-05-09] MEDS: SINEMET (PLAIN) 25/100 MG PO SCH ×2 (00:35→08:26)
[2017-05-09 06:30] LABS: CKMB % 3.2 % (<4); CREATINE KINASE MB 1.2 ng/mL (0-4.0); TROPONIN I 0.02 ng/mL (0-1.5)
[2017-05-09 08:19] VITALS: BP 184/87
[2017-05-09] MEDS: NS 1000 ML 1,000 ML IV SCH (08:40)
== END 2017-05-09 11:15 | disposition home or self-care (01) ==
LOC: ER 16:36 → MED/SURG 19:08
PROVIDERS: ADMIT Internal Medicine; ATTEND Internal Medicine
DX: R55 Syncope and collapse (principal); I25.10 Atherosclerotic heart disease of native coronary artery without angina pectoris; I10 Essential (primary) hypertension; R94.31 Abnormal electrocardiogram [ECG] [EKG]; R94.4 Abnormal results of kidney function studies; R26.89 Other abnormalities of gait and mobility; R73.09 Other abnormal glucose; Z79.1 Long term (current) use of non-steroidal anti-inflammatories (NSAID)
CPT/HCPCS: 36415; 70450; 71045; 80053; 82550; 82553; 83735; 84484; 85025; 85610; 85730; 93005; 93010; 96365; 99284; A4216; G8978; G8979; G8987; G8988; G0378

== ENCOUNTER 2017-06-15 05:44 | Inpatient (IN) | payer OTHER, BC ==
[2017-06-15 06:06] VITALS: BMI 28.7
[2017-06-15] MEDS ORDERED: ZOFRAN INJ 4 MG VIAL IVP ONE (06:16)
--- NOTE | 2017-06-15 06:24 | DR.GENAD ---
HPI - PCP Primary Care Physician: charlotte - Complaint/Symptoms Chief Complaint Doctors Comments: states patient with altered mental status and has been unable to stand or set today with complaint of stomach pain with nausea. States he had a cardiac cath and pacemaker three weeks ago with By -pass surgery at [facility] in [place]. States he has a type of Parkinson Disease and she is afraid that some of the problems may be due to it. He denies chest pain or SOB but is complaining of severe nausea and lower abdominal pain. He denies headache, dizzines, cold, cough, fever or chills. States his appetite is good but he complains of stomach pain and nausea all the time. States he is a patient of Dr. Mejia and has PSP and it affects his digestion when he takes the zofran it constipates him. He denies dysuria or hematuria. Chief Complaint:: pts stated he woke up about a hour ago and was nauseated and ams with stomach pain.[facility] was called and brought patient to the er - Nurses notes reviewed Nurses Notes Review: Yes - Source History Provided: Patient, Family Member - Mode of Arrival Mode of Arrival: EMS - Timing Onset of Chief Complaint: 06/15/17 Came on: Gradually - Duration Duration: Constant How lon Duration: Hours - Location Location: lower abdominal pain with nausea - Severity Severity: Moderate - Modifying Factors Worsens:: nothing Improves:: nothing PMH - PMH Past Medical History: Yes Past Medical History: Coronary Artery Disease, Headaches, Hypertension Past Surgical History: Yes Surgical History: Appendectomy, Bowel Resection, CABG/Valve Surgery, Cholecystectomy, Lithotripsy, Other - Family History History of Family Medical Conditions: Yes Family Medical History: [place], Hypertension - Social History Does patient currently use any type of tobacco product: No Have you used tobacco products in the last 12 months: No Type of Tobacco Use: None Does any household member use tobacco: No Alcohol Use: None Do you use any recreational Drugs:: No Lives With: Spouse Lives Where: Home - infectious screening In the last 2 months have you had wt loss of >10#?: NO Have you had fever, night sweats or hemotysis?: No Have you traveled outside the country in the last 6 months?: No Isolation: Standard ROS - Review of Systems Constitutional: No Symptoms Reported, Weakness Eyes: No Symptoms Reported ENTM: No Symptoms Reported Respiratoy: No Symptoms Reported Cardiovascular: No Symptoms Reported. negative: See HPI, Chest Pain, Edema, Palpitations, Syncope, Cyanosis, Skin Mottling, Other Gastrointestinal/Abdominal: Abdominal Pain, Constipation, Nausea Genitourinary: No Symptoms Reported. negative: See HPI, Discharge, Dysuria, Frequency, Hematuria, Pain, Bleeding, Other Neurological: No Symptoms Reported, Paresthesia, Weakness, Speech Problem Musculoskeletal: No Symptoms Reported, Right, Foot (ulceration side of foot) Integumentary: No Symptoms Reported, Wound (right lateral foot) Hematologic/Lymphatic: No Symptoms Reported Endocrine: No Symptoms Reported Psychiatric: No Symptoms Reported PE - Vital Signs Vitals: Temperature 97.7 F Pulse Rate [Apical] 62 Pulse Rate 73 Respiratory Rate 20 Blood Pressure [Left Arm] 122/64 Blood Pressure [Right Arm] 184/87 Blood Pressure 135/74 O2 Sat by Pulse Oximetry 99 - General Limitations: Altered Mental Status, Physical Limitation General Appearance: Alert, Lethargic - Head Head Exam: Normal Inspection, Atraumatic, Normocephalic - Eyes Eye exam: Normal Appearance, PERRL, EOMI. negative: Scleral Icterus, Conjunctival Injection, Nystagmus, Miosis, Mydrasis, Periorbital Swelling, Periorbital Tenderness, Other - ENT ENT Exam: Normal Exam, Normal Oropharynx, Normal External Ear Exam, Mucous Membranes Moist (dentures), TM's Normal Bilaterally External Ear Exam: Normal External Inspection TM/Canal Exam: Bilateral Normal Nose Exam: Normal Nose Exam Mouth Exam: Normal Inspection. negative: Drooling, Trismus, Lip Swelling, Tongue Elevation, Tongue Swelling, Laceration, Other Throat Exam: Normal Inspection - Neck Neck Exam: Normal Inspection, Full ROM, Trachea Midline - Chest Chest Inspection: Normal Inspection. negative: Symmetric Chest Wall Rise, Tenderness, Rash, Abscess, Other - Respiratory Respiratory Exam: Normal Lung Sounds Bilat. negative: Accessory Muscle Use, Chest Wall Tenderness, Prolonged Expiratory Phase, Respiratory Distress, Stridor , Other Respiratory Exam: Bilateral Clear to Auscultation - Cardiovascular Cardiovascular Exam: Regular Rate, Normal Rhythm, Normal Heart Sounds - Abdominal Exam Abdominal Exam: Normal Inspection, Normal Bowel Sounds, Soft, Tenderness ( suprapubic tenderness), Dimnished Bowel Sounds Abdominal Tenderness: Suprapubic, Mild - Extremities Extremities Exam: Normal Inspection, Full ROM, Tenderness (right lateral foot with 1-2 cm ulceration lateral foot), Normal Capillary Refill - Back Back Exam: Normal Inspection, Full ROM - Neurologic Neurological Exam: Alert, Oriented X3, Reflexes Normal. negative: CN II-XII Intact (follows command), Normal Gait (gait not tested) - Psychiatric Psychiatric Exam: Normal Affect, Normal Mood, Flat Affect - Skin Skin Exam: Warm, Dry, Intact, Normal Color Course - Consultation Called: 07:57 Call Returned: 07:57 (Dr. Mejia to admit) - Education/Counseling Education/Counseling: Patient, Family Educated On: Treatment, Diagnosis, Needs for Follow Up ROR - Labs Reviewed Laboratory Results Reviewed?: Yes (All labs and x-ray results reviewed and discussed with spouse and patient) Result Diagrams: 06/15/17 06:32 06/15/17 06:32 Laboratory: WBC 6.9 X10^3/uL (3.6-10.0) 06/15/17 06:32 RBC 4.44 X10^6/uL (4.7-6.0) L 06/15/17 06:32 Hgb 13.8 g/dL (13.5-18.0) 06/15/17 06:32 Hct 40.6 % (42.0-54.0) L 06/15/17 06:32 MCV 91.6 fL (80.0-100.0) 06/15/17 06:32 MCH 31.0 pg (27.0-34.0) 06/15/17 06:32 MCHC 33.9 g/dL (33.0-35.0) 06/15/17 06:32 RDW 14.2 % (11.6-16.5) 06/15/17 06:32 Plt Count 188 X10^3/uL (150.0-450.0) 06/15/17 06:32 MPV 8.6 fL (7.4-11.0) 06/15/17 06:32 Neut % (Auto) 73.6 % (42.0-75.0) 06/15/17 06:32 Lymph % (Auto) 11.4 % (21.0-51.0) L 06/15/17 06:32 [place] % (Auto) 10.5 % (0.0-13.0) 06/15/17 06:32 Eos % (Auto) 3.1 % (0.9-2.9) H 06/15/17 06:32 Baso % (Auto) 1.4 % (0.2-1.0) H 06/15/17 06:32 Neut # (Auto) 5.1 x10^3/uL (2.2-4.8) H 06/15/17 06:32 Lymph # (Auto) 0.8 X10^3/uL (1.3-2.9) L 06/15/17 06:32 [place] # (Auto) 0.7 x10^3/uL (0.3-0.8) 06/15/17 06:32 Eos # (Auto) 0.2 x10^3/uL (0.0-0.2) 06/15/17 06:32 Baso # (Auto) 0.1 X10^3/uL (0.0-0.1) 06/15/17 06:32 Absolute Nucleated RBC 0.0 /100WBC 06/15/17 06:32 INR Target Range - 06/15/17 06:32 INR 1.18 (0.8-1.3) 06/15/17 06:32 APTT 31.8 SECONDS (22.9-36.5) 06/15/17 06:32 PTT Comment - 06/15/17 06:32 D-Dimer 2660 ng/mL (0-400) H* 06/15/17 06:32 Sodium 135 mmol/L (136-145) L 06/15/17 06:32 Corrected Sodium 135 mmol/L (136-145) L 06/15/17 06:32 Potassium 4.6 mmol/L (3.5-5.1) 06/15/17 06:32 Chloride 99 mmol/L (98-107) 06/15/17 06:32 Carbon Dioxide 29.2 mmol/L (21-32) 06/15/17 06:32 BUN 17 mg/dL (7-18) 06/15/17 06:32 Creatinine 2.12 mg/dL (0.70-1.30) H 06/15/17 06:32 Est GFR (MDRD) Af Amer 39 (>60) L 06/15/17 06:32 Est GFR (MDRD) Non-Af 32 (>60) L 06/15/17 06:32 Glucose 113 mg/dL (65-99) H 06/15/17 06:32 Calcium 8.8 mg/dL (8.5-10.1) 06/15/17 06:32 Corrected Calcium TNP 06/15/17 06:32 Magnesium 2.0 mg/dL (1.7-2.9) 06/15/17 06:32 Total Bilirubin 0.50 mg/dL (0.2-1.0) 06/15/17 06:32 AST 8 Units/L (15-37) L 06/15/17 06:32 ALT 10 Units/L (12-78) L 06/15/17 06:32 Alkaline Phosphatase 116 Units/L (46-116) 06/15/17 06:32 Creatine Kinase 40 Units/L (39-308) 06/15/17 06:32 CK-MB (CK-2) < 1.0 ng/mL (0-4.0) 06/15/17 06:32 CK/CKMB % Calc 2.5 % (<4) 06/15/17 06:32 Troponin I < 0.02 ng/mL (0-1.5) 06/15/17 06:32 Total Protein 7.6 g/dL (6.4-8.2) 06/15/17 06:32 Albumin 3.5 g/dL (3.4-5.0) 06/15/17 06:32 Globulin 4.1 g/dL (2.5-4.5) 06/15/17 06:32 Albumin/Globulin Ratio 0.9 Ratio (1.1-2.1) L 06/15/17 06:32 TSH 3rd Generation 1.173 uIU/mL (0.358-3.74) 06/15/17 06:32 - XRAY XRAY Interpreted by: Radiologist (CT head: No acue intracranial process can be identified. Age appropriate intra-cranial changes) XRAY Findings: CT abdomen:Abnormal mesenteric soft tissue thickening concerning for carci - EKG Rate: 66 Lando: Normal Rhythm: NSR Block: 1, RBBB ST: Nonsp - Diagnosis Discharge Problem: abdominal pain r/o peritonitis vs malign, Hyperglycemia, Chronic kidney disease , Parkinson disease Altered mental status Qualifiers: Altered mental status type: unspecified Qualified Code(s): R41.82 - Altered mental status, unspecified - Discharge Plan Disposition: ADMITTED INPATIENT Condition: Stable - Follow ups/Referrals Follow ups/Referrals: Wayne Mejia [Primary Care Provider] - 3 days - Instructions
[2017-06-15 06:48] LABS: BASOPHILS # (AUTO) 0.1 X10^3/uL (0.0-0.1); BASOPHILS % (AUTO) 1.4 % (0.2-1.0); EOSINOPHILS # (AUTO) 0.2 x10^3/uL (0.0-0.2); EOSINOPHILS % (AUTO) 3.1 % (0.9-2.9); HEMATOCRIT 40.6 % (42.0-54.0); HEMOGLOBIN 13.8 g/dL (13.5-18.0); LYMPHOCYTES # (AUTO) 0.8 X10^3/uL (1.3-2.9); LYMPHOCYTES % (AUTO) 11.4 % (21.0-51.0); MEAN CORPUSCULAR HGB CONC 33.9 g/dL (33.0-35.0); MEAN CORPUSCULAR VOLUME 91.6 fL (80.0-100.0); MEAN PLATELET VOLUME 8.6 fL (7.4-11.0); MONOCYTES # (AUTO) 0.7 x10^3/uL (0.3-0.8); MONOCYTES % (AUTO) 10.5 % (0.0-13.0); NEUTROPHILS # (AUTO) 5.1 x10^3/uL (2.2-4.8); NEUTROPHILS % (AUTO) 73.6 % (42.0-75.0); PLATELET COUNT 188 X10^3/uL (150.0-450.0); RED BLOOD COUNT 4.44 X10^6/uL (4.7-6.0); RED CELL DISTRIBUTION WIDTH 14.2 % (11.6-16.5); WHITE BLOOD COUNT 6.9 X10^3/uL (3.6-10.0)
[2017-06-15] MEDS ORDERED: NS 1000 ML 1,000 ML IV SCH (07:00)
[2017-06-15 07:01] LABS: BLOOD UREA NITROGEN 17 mg/dL (7-18); CALCIUM 8.8 mg/dL (8.5-10.1); CARBON DIOXIDE 29.2 mmol/L (21-32); CHLORIDE 99 mmol/L (98-107); COR NA(FOR HYPERGLY) 135 mmol/L (136-145); CREATININE 2.12 mg/dL (0.70-1.30); SODIUM 135 mmol/L (136-145); TROPONIN I < 0.02 ng/mL (0-1.5); eGFR BLACK RACES 39 (>60); eGFR NON BLACK RACES 32 (>60)
[2017-06-15 07:06] LABS: ALANINE AMINOTRANSFERASE 10 Units/L (12-78); ALBUMIN 3.5 g/dL (3.4-5.0); ALKALINE PHOSPHATASE 116 Units/L (46-116); ASPARTATE AMINO TRANSFERASE 8 Units/L (15-37); CREATINE KINASE 40 Units/L (39-308); CREATINE KINASE MB < 1.0 ng/mL (0-4.0); TOTAL PROTEIN 7.6 g/dL (6.4-8.2); TSH (3RD GENERATION) 1.173 uIU/mL (0.358-3.74)
[2017-06-15 07:07] LABS: CKMB % 2.5 % (<4)
--- NOTE | 2017-06-15 07:09 | RAD ---
Examination: AP chest History: Chest pain Comparison reference 05/08/2017 Findings: Continued upper normal heart size with sternotomy and pacemaker. Pulmonary volumes are mode rately reduced, accentuating pulmonary markings. No consolidation, pneumothorax or large pleural effu anali is evident. Impression: Considering low lung volumes and partial expiratory technique, no acute process demonstra heidi. Reported By:
--- NOTE | 2017-06-15 07:21 | CT ---
Clinical history: Abdominal pain. Exam: Noncontrast CT examination of the abdomen/pelvis. Technique: Noncontrast CT examination of the abdomen/pelvis is performed the axial plane with coronal and sagittal reformatted images without the benefit of IV contrast. Axial CT images were obtained fr om the lung bases to the pubic symphysis using 1-2 mm imaging cuts. Findings: The lung bases are relatively clear other than bibasilar atelectasis. There is diffuse aort ic atherosclerosis. Scattered coronary atherosclerosis is also seen the heart is mildly enlarged stat us post presumed CABG procedure. Noncontrast CT images of the liver, spleen, stomach, pancreas, adren al glands, and kidneys show no focal abnormalities. There is no hydronephrosis or hydroureter observe d. No high-grade bowel obstruction is seen. However, there is abnormal mesenteric soft tissue thicken ing adjacent to the meso-colon and transverse colon observed throughout the mid abdomen as seen on im ages number 40 through 69 of series 3 and extending into the right and left lower quadrant with a tra ce amount of free abdominal fluid also observed. Postsurgical changes seen involving the rectosigmoid colon as well. Unfortunately, these findings are most concerning for carcinomatosis/mesenteric malig nawaf/metastasis. It is possible this could reflect an infectious or inflammatory peritonitis as well but malignancy must be considered and excluded. CT-PET imaging follow-up could be considered. Mesent bertin biopsy may be required for definitive tissue diagnosis as well. No other acute abdominopelvic ab normalities are identified on this exam. There is iliac atherosclerosis. There are spinal findings of DISH without evidence for an fracture or destructive lytic bony lesion. Some lucency is seen surroun ding the transpedicular screws at L4-5 which can be seen with early loosening without hardware fractu re observed. There is straightening of the normal lumbar lordosis as well. Impression: Abnormal mesenteric soft tissue thickening adjacent to the meso-colon and transverse colo n observed throughout the mid abdomen as seen on images number 40 through 69 of series 3 and extendin g into the right and left lower quadrant with a trace amount of free abdominal fluid also observed. U nfortunately, these findings are most concerning for carcinomatosis/mesenteric malignancy/metastasis. It is possible this could reflect an infectious or inflammatory peritonitis as well but malignancy m ust be considered and excluded. CT-PET imaging follow-up should be considered. Mesenteric biopsy may be required for definitive tissue diagnosis as well. No other acute abdominopelvic abnormalities are identified on this exam. Spinal degenerative findings also seen, as above. Reported By:
--- NOTE | 2017-06-15 07:23 | CT ---
HISTORY: Altered mental status Noncontrast head CT examination. Comparison: Head CT exam dated 04/18/2017. Technique: Multiple axial images of the brain were obtained from the skull base to the vertex without administra tion of IV contrast. Findings: There is moderate sulcal and cisternal prominence as well as atherosclerotic change in the proximal intracranial carotid and vertebral arteries, which is not out of proportion to the patient's stated age. There is diffuse CT density alteration seen in the periventricular white matter of the h igh and mid-convexity, which is likely in the setting of small vessel disease and not out of proporti on to the patient's stated age. There is mild bilateral ex vacuo ventricular dilatation without evide nce for hydrocephalus or herniation syndrome. No midline shift is evident. No acute intraparenchymal hemorrhage or mass can be identified. No extra-axial fluid collections are seen. No alteration in t he attenuation of the brain parenchyma can be identified to suggest acute or subacute ischemic change . The extracranial structures are unremarkable. IMPRESSION: 1. No acute intracranial process can be identified. 2. Age-appropriate intra-cranial changes of advancing age. Reported By:
[2017-06-15] MEDS ORDERED: PHENERGAN TAB 25 MG PO PRN (08:02)
[2017-06-15] MEDS ORDERED: NORCO 5/325 MG TAB PO PRN (08:02)
[2017-06-15] MEDS ORDERED: HumuLIN R SC PRN (08:04)
[2017-06-15] MEDS ORDERED: LOVENOX INJ 40 MG SYR SC ONE (08:23)
[2017-06-15] MEDS: LOVENOX INJ 40 MG SYR SC SCH (08:28)
[2017-06-15] MEDS: NS 1000 ML 1,000 ML IV SCH ×4 (09:00→23:21)
[2017-06-15] MEDS ORDERED: PATIENT'S HOME MEDICATION (Losartan Potassium [Losartan Potassium] 1 TAB) PO SCH (09:00)
[2017-06-15] MEDS: SYNTHROID 175 mcg TAB PO SCH (10:53)
[2017-06-15] MEDS: SINEMET (PLAIN) 25/100 MG PO SCH ×4 (10:53→21:52)
[2017-06-15] MEDS: COZAAR PO SCH (11:27)
[2017-06-15] MEDS: HYTRIN PO SCH ×2 (14:20→21:50)
[2017-06-15] MEDS: GENTAMICIN TOPICAL OINT TOP SCH ×2 (14:20→21:53)
[2017-06-15] MEDS: ZOSYN VIAL 3.375 GM 3.375 GM in NS 100 ML IV + SPIKE MINIBAG* 100 ML IV SCH ×2 (14:21→21:52)
[2017-06-15] MEDS ORDERED: ZOFRAN TAB 4 MG PO PRN (16:12)
[2017-06-15] MEDS ORDERED: PATIENT'S HOME MEDICATION (Cholecalciferol (Vitamin D3) [Vitamin D3] 1 TAB) PO SCH (16:15)
[2017-06-15] MEDS ORDERED: PATIENT'S HOME MEDICATION (Zinc [Zinc] 50 MG) PO SCH (16:15)
[2017-06-15 16:18] LABS: BILIRUBIN,URINE NEGATIVE (NEGATIVE); BLOOD/HEMOGLOBIN,URINE NEGATIVE (NEGATIVE); COLOR,URINE YELLOW (YELLOW); GLUCOSE, URINE NEGATIVE (NEGATIVE); KETONES,URINE NEGATIVE (NEGATIVE); LEUKOCYTE ESTERASE ,URINE NEGATIVE (NEGATIVE); NITRITES,URINE NEGATIVE (NEGATIVE); PH,URINE 6.5 (5.0 - 8.0); PROTEIN,URINE 1+ (NEGATIVE); UROBILINOGEN,URINE NORMAL (NORMAL)
[2017-06-15 16:19] LABS: APPEARANCE,URINE CLEAR (CLEAR)
[2017-06-15 16:29] LABS: RBC,URINE NONE SEEN /HPF (NONE SEEN)
[2017-06-15 16:30] LABS: AMORPHOUS SEDIMENT,UR TRACE /HPF (NEGATIVE); BACTERIA,URINE NEGATIVE /HPF (NEGATIVE); HYALINE CASTS, URINE RARE /LPF (NEGATIVE); SQUAMOUS EPITHELIAL CELL,UR RARE /HPF (NEGATIVE)
[2017-06-15] MEDS: ASPIRIN EC 81 MG PO SCH (19:22)
[2017-06-15] MEDS: COLACE CAP 100 MG PO SCH ×2 (19:22→21:51)
[2017-06-15] MEDS: MILK OF MAGNESIA PO SCH ×2 (19:22→21:51)
[2017-06-15] MEDS ORDERED: RESTORIL CAP 15 MG PO PRN (21:49)
[2017-06-15] MEDS: NexIUM PO SCH (21:50)
[2017-06-15] MEDS: TOPROL XL PO SCH (21:50)
[2017-06-16] MEDS: MORPHINE SULFATE INJ 2 MG INJ IVP PRN ×2 (00:23→20:32)
[2017-06-16] MEDS: NS 1000 ML 1,000 ML IV SCH ×4 (01:18→22:40)
[2017-06-16] MEDS ORDERED: AYR NASAL DROPS PRN (02:18)
[2017-06-16] MEDS: ZOSYN VIAL 3.375 GM 3.375 GM in NS 100 ML IV + SPIKE MINIBAG* 100 ML IV SCH ×3 (05:40→22:35)
[2017-06-16 06:36] LABS: BASOPHILS # (AUTO) 0.1 X10^3/uL (0.0-0.1); BASOPHILS % (AUTO) 0.7 % (0.2-1.0); EOSINOPHILS # (AUTO) 0.3 x10^3/uL (0.0-0.2); HEMATOCRIT 37.3 % (42.0-54.0); HEMOGLOBIN 12.6 g/dL (13.5-18.0); LYMPHOCYTES # (AUTO) 0.8 X10^3/uL (1.3-2.9); LYMPHOCYTES % (AUTO) 11.3 % (21.0-51.0); MEAN CORPUSCULAR HEMOGLOBIN 30.8 pg (27.0-34.0); MEAN CORPUSCULAR HGB CONC 33.6 g/dL (33.0-35.0); MEAN CORPUSCULAR VOLUME 91.4 fL (80.0-100.0); MEAN PLATELET VOLUME 8.9 fL (7.4-11.0); MONOCYTES % (AUTO) 13.5 % (0.0-13.0); NEUTROPHILS # (AUTO) 5.1 x10^3/uL (2.2-4.8); NEUTROPHILS % (AUTO) 70.5 % (42.0-75.0); PLATELET COUNT 169 X10^3/uL (150.0-450.0); RED BLOOD COUNT 4.08 X10^6/uL (4.7-6.0); RED CELL DISTRIBUTION WIDTH 14.1 % (11.6-16.5); WHITE BLOOD COUNT 7.3 X10^3/uL (3.6-10.0)
[2017-06-16 06:55] LABS: ALANINE AMINOTRANSFERASE 12 Units/L (12-78); ALBUMIN 2.9 g/dL (3.4-5.0); ALKALINE PHOSPHATASE 118 Units/L (46-116); ASPARTATE AMINO TRANSFERASE 18 Units/L (15-37); BLOOD UREA NITROGEN 15 mg/dL (7-18); CARBON DIOXIDE 28.1 mmol/L (21-32); CHLORIDE 106 mmol/L (98-107); COR CA(FOR HYPOALB) 8.9 mg/dL (8.5-10.1); CREATININE 1.76 mg/dL (0.70-1.30); SODIUM 140 mmol/L (136-145); TOTAL PROTEIN 6.5 g/dL (6.4-8.2); eGFR BLACK RACES 49 (>60); eGFR NON BLACK RACES 40 (>60)
[2017-06-16 08:25] LABS: CKMB % 3.6 % (<4); CREATINE KINASE 28 Units/L (39-308); CREATINE KINASE MB < 1.0 ng/mL (0-4.0); TROPONIN I < 0.02 ng/mL (0-1.5)
[2017-06-16] MEDS: COZAAR PO SCH (09:42)
[2017-06-16] MEDS: ZETIA TAB 10 MG PO SCH (09:42)
[2017-06-16] MEDS: HYTRIN PO SCH ×2 (09:42→20:37)
[2017-06-16] MEDS: ZINC SULFATE PO SCH (09:43)
[2017-06-16] MEDS: ASPIRIN EC 81 MG PO SCH (09:43)
[2017-06-16] MEDS: SINEMET (PLAIN) 25/100 MG PO SCH ×4 (09:43→20:42)
[2017-06-16] MEDS: SYNTHROID 175 mcg TAB PO SCH (09:43)
[2017-06-16] MEDS: MILK OF MAGNESIA PO SCH ×2 (09:44→20:37)
[2017-06-16] MEDS: LOVENOX INJ 40 MG SYR SC SCH (09:44)
[2017-06-16] MEDS: GENTAMICIN TOPICAL OINT TOP SCH ×2 (09:44→20:37)
[2017-06-16] MEDS: VITAMIN D3 PO SCH (11:46)
--- NOTE | 2017-06-16 19:41 | DR.H&P ---
H&P - History & Physical for Day of: H&P Date: 06/15/17 - Chief Complaint Chief Complaint: AMS, WEAKNESS, ABDOMINAL PAIN - Allergies Allergies/Adverse Reactions: Allergies Allergy/AdvReac Type Severity Reaction Status Date / Time codeine Allergy Verified 05/08/17 19:26 esomeprazole Allergy Verified 05/08/17 19:26 hydrocodone Allergy Verified 05/08/17 19:26 omeprazole Allergy Verified 05/08/17 19:26 oxycodone Allergy Verified 05/08/17 19:26 Zjfjdyj-Nmf-Clw Reductase Allergy Verified 05/08/17 19:26 Inhibitor tramadol Allergy Verified 05/08/17 19:26 zolpidem [From Ambien] Allergy Verified 05/08/17 19:26 IVP DYE Allergy Intermediate Uncoded 05/08/17 19:26 - History of Present Illness History of Present Illness: IS A 76 YEAR OLD PATIENT OF OURS WHO PRESENTED TO THE EMERGENCY ROOM WITH COMPLAINTS OF NAUSEA, ALTERED MENTAL STATUS , AND ABDOMINAL PAIN. SPOUSE REPORTS THAT PATIENT HAS BEEN UNABLE TO STAND OR SET UP STRAIGHT TODAY WITHOUT COMPLAINING OF ABDOMINAL PAIN AND NAUSEA. PATIENT RECENTLY UNDERWENT CARDIAC CATH AND PACEMAKER THREE WEEKS AGO WITH BY-PASS SURGERY AT [facility] IN [place]. SHE REPORTS THAT PATIENT HAS A HISTORY OF A TYPE OF PARKINSONS DISEASE AND SHE IS AFRAID THAT SOME OF THE PROBLEMS MAY BE RELATED TO IT. PATIENT DENIES SHEST PAIN OR SHORTNESS OF BREATH. ASSOCIATED SIGNS AND SYMPTOMS ARE WEAKNESS, GENERALIZED MUSCLE ACHES, UNABLE TO HOLD EYES OPEN, AND UNCONTROLLED SHAKING. HE IS NOTED WITH A DIABETIC ULCER TO THE RIGHT GREAT TOE. ON ARRIVAL, VITALS WERE 98.8-76-20-95%-130/62. LABS WERE OBTAINED. ABNORMAL LAB VALUES INCLUDE THE FOLLOWING: RBC 4.44, HCT 40.6, D- DIMER 2660, SODIUM 135, CREATININE 2.12, GFR 32, GLUCOSE 113, AST 8, ALT 10, ACETYLCHOLINE RECEPTOR ANTIBIODY PENDING. CHEST XRAY REVEALED NO ACUTE CHEST PROCESS. BRAIN CT REVEALED ABNORMAL MESENTERIC SOFT TISSUE THICKENING ADJACENT TO THE MESO-COLON AND TRANSVERSE COLON OBSERVED THROUGHOUT THE MID ABDOMEN AND EXTENDING INTO THE RIGHT AND LEFT LOWER QUADRANTS WITH A TRACE AMOUNT OF FREE ABDOMINAL FLUID ALSO OBSERVED. COULD REFLECT AN INFECTIOUS OR INFLAMMATORY PERITONITIS. BRAIN CT NEGATIVE FOR ACUTE INTRACRANIAL PROCESS. AGE-APPROPRIATE INTRACRANIAL CHANGES OF ADVANCED AGING NOTED. EKG REVEALED SINUS RHYTHM WITH HR 66. PATIENT ADMITTED FOR FURTHER EVALUATION AND TREATMENT. HE WAS STARTED ON NORMAL SALINE AT 125ML/HR AND ZOSYN IV TID. WE WILL FOLLOW UP WITH AM LABS AND CONTINUE TO MONITOR PATIENT. - Past Medical History Past Medical History: Coronary Artery Disease, Headaches, Hypertension Additional Medical History: Hx Diverticulosis, Atrial Fibrillation - Past Surgical History Surgical History: Appendectomy, Bowel Resection, Cholecystectomy, Lithotripsy, Other Additional Surgical History: Cardiac Ablation - Family History Family Medical History: Diabetes Mellitus, Cancer, Coronary Artery Disease - Social History Does patient currently use any type of tobacco product: No Have you used tobacco products in the last 12 months: No Type of Tobacco Use: Cigarettes How many years tobacco product used: 20 Does any household member use tobacco: No Alcohol Use: None Drug Use: None - Medications Home Medications: Tramadol HCl/Acetaminophen [Ultracet Tablet] 1 tab PO TID 06/15/17 [History Confirmed 06/15/17] Zinc 50 mg PO DAILY 06/15/17 [History Confirmed 06/15/17] - Review of Systems Constitutional: Weakness Eyes: No Symptoms Reported ENT: No Symptoms Reported Respiratory: No Symptoms Reported Cardiovascular: No Symptoms Reported Gastrointestinal: Nausea, Abdominal Pain, Constipation Musculoskeletal: No Symptoms Reported Skin: No Symptoms Reported Neurological: Weakness - Physical Exam Vital Signs: Temperature 97.4 F Pulse Rate [Left Brachial] 74 Pulse Rate [Right Brachial] 71 Pulse Rate [Apical] 62 Pulse Rate 73 Respiratory Rate 20 Blood Pressure [Left Arm] 139/67 Blood Pressure [Right Arm] 100/58 Blood Pressure 135/74 O2 Sat by Pulse Oximetry 97 Oriented: Normal Eyes: Normal Ear: Normal Nose: Normal Throat: Normal Respiratory: Diminished Throughout Cardiovascular: Normal : Normal Auscultation: Bowel Sounds: Normal Palpation: Normal Tenderness: Diffuse, Moderate. negative: Rebound, Guarding, Rigidity Skin: Normal Musculoskeletal: Normal Psychiatric: Normal Mood Description: Calm Affect: Normal Speech Pattern: Unclear - Assessment/Plan (1) Abdominal pain Qualifiers: Abdominal location: generalized Qualified Code(s): R10.84 - Generalized abdominal pain Status: Acute Plan: ADMIT, NORMAL SALINE AT 125ML/HR, ZOSYN, CONTINUE TO MONITOR (2) Altered mental status Qualifiers: Altered mental status type: unspecified Qualified Code(s): R41.82 - Altered mental status, unspecified Status: Acute (3) Parkinson disease Status: Acute (4) Hyperglycemia Status: Acute (5) Generalized weakness Status: Acute (6) Diabetes Qualifiers: Diabetes mellitus type: type 2 Diabetes mellitus skilled nursing insulin use: with exterminator helper use Diabetes mellitus complication status: with unspecified complications Qualified Code(s): E11.8 - Type 2 diabetes mellitus with unspecified complications; Z79.4 - predatory animal exterminator (current) use of insulin; Z79.4 - predatory animal exterminator (current) use of insulin; Z79.4 - intermediate (current) use of insulin; Z79.4 - intermediate (current) use of insulin Status: Acute
[2017-06-16] MEDS: COLACE CAP 100 MG PO SCH (20:36)
[2017-06-16] MEDS: NexIUM PO SCH (20:38)
[2017-06-16] MEDS: TOPROL XL PO SCH (20:42)
[2017-06-17] MEDS: ZOSYN VIAL 3.375 GM 3.375 GM in NS 100 ML IV + SPIKE MINIBAG* 100 ML IV SCH (05:45)
[2017-06-17] MEDS: NS 1000 ML 1,000 ML IV SCH (06:18)
[2017-06-17 07:08] LABS: BASOPHILS % (AUTO) 0.7 % (0.2-1.0); EOSINOPHILS # (AUTO) 0.3 x10^3/uL (0.0-0.2); EOSINOPHILS % (AUTO) 4.8 % (0.9-2.9); HEMATOCRIT 36.4 % (42.0-54.0); HEMOGLOBIN 12.5 g/dL (13.5-18.0); LYMPHOCYTES # (AUTO) 0.8 X10^3/uL (1.3-2.9); LYMPHOCYTES % (AUTO) 11.9 % (21.0-51.0); MEAN CORPUSCULAR HEMOGLOBIN 31.4 pg (27.0-34.0); MEAN CORPUSCULAR HGB CONC 34.4 g/dL (33.0-35.0); MEAN CORPUSCULAR VOLUME 91.3 fL (80.0-100.0); MEAN PLATELET VOLUME 9.1 fL (7.4-11.0); MONOCYTES # (AUTO) 0.9 x10^3/uL (0.3-0.8); MONOCYTES % (AUTO) 12.8 % (0.0-13.0); NEUTROPHILS # (AUTO) 4.9 x10^3/uL (2.2-4.8); NEUTROPHILS % (AUTO) 69.8 % (42.0-75.0); PLATELET COUNT 163 X10^3/uL (150.0-450.0); RED BLOOD COUNT 3.99 X10^6/uL (4.7-6.0); RED CELL DISTRIBUTION WIDTH 14.6 % (11.6-16.5); WHITE BLOOD COUNT 7.1 X10^3/uL (3.6-10.0)
[2017-06-17 07:26] LABS: ALANINE AMINOTRANSFERASE 12 Units/L (12-78); ALBUMIN 2.8 g/dL (3.4-5.0); ALKALINE PHOSPHATASE 98 Units/L (46-116); ASPARTATE AMINO TRANSFERASE 16 Units/L (15-37); BLOOD UREA NITROGEN 11 mg/dL (7-18); CALCIUM 8.1 mg/dL (8.5-10.1); CARBON DIOXIDE 25.3 mmol/L (21-32); CHLORIDE 107 mmol/L (98-107); COR CA(FOR HYPOALB) 9.1 mg/dL (8.5-10.1); CREATININE 1.55 mg/dL (0.70-1.30); SODIUM 140 mmol/L (136-145); TOTAL PROTEIN 6.4 g/dL (6.4-8.2); eGFR BLACK RACES 56 (>60); eGFR NON BLACK RACES 46 (>60)
[2017-06-17] MEDS: VITAMIN D3 PO SCH (10:38)
[2017-06-17] MEDS: ZINC SULFATE PO SCH (10:39)
[2017-06-17] MEDS: ZETIA TAB 10 MG PO SCH (10:39)
[2017-06-17] MEDS: COZAAR PO SCH (10:39)
[2017-06-17] MEDS: SYNTHROID 175 mcg TAB PO SCH (10:40)
[2017-06-17] MEDS: HYTRIN PO SCH (10:40)
[2017-06-17] MEDS: SINEMET (PLAIN) 25/100 MG PO SCH (10:40)
[2017-06-17] MEDS: ASPIRIN EC 81 MG PO SCH (10:41)
[2017-06-17] MEDS: GENTAMICIN TOPICAL OINT TOP SCH (10:44)
[2017-06-17] MEDS: LOVENOX INJ 40 MG SYR SC SCH (10:44)
[2017-06-17] MEDS: MILK OF MAGNESIA PO SCH (10:44)
--- NOTE | 2017-06-17 11:12 | PCM.PROG ---
Progress Note - Progress Note for Day of Date: 06/16/17 - Subjective Subjective: IS BEING TREATED FOR ALTERED MENTAL STATUS, GENERALIZED WEAKNESS, AND ABDOMINAL PAIN R/O PERITONITIS. TODAY, HE IS ALERT AND ORIENTED, SITTING UP IN THE CHAIR ON MORNING ROUNDS. HE IS MUCH MORE COHERENT THAN HE WAS YESTERDAY. HE CONTINUES WITH GENERALIZED WEAKNESS, BUT REPORTS THAT ABDOMINAL PAIN IS BETTER AFTER HAVING A BOWEL MOVEMENT. HIS VITALS TODAY ARE 97.8-69-20-95 %-136/65. ABNORMAL LAB VALUES INCLUDE THE FOLLOWING: RBC 3.99, HGB 12.5, HCT 36.4, CREATININE 1.55, CALCIUM 8.1, ALBUMIN 2.8. TODAY, WE WILL CONTINUE WITH IV HYDRATION AND IV ANTIBIOTICS. OTHERWISE, WE WILL FOLLOW UP WITH AM LABS AND CONTINUE TO MONITOR PATIENT. - Past Medical Family Social History Past Med/Fam/Surg Hx: No changes since H&P Allergies: Allergies codeine Allergy (Verified 05/08/17 19:26) esomeprazole Allergy (Verified 05/08/17 19:26) hydrocodone Allergy (Verified 05/08/17 19:26) omeprazole Allergy (Verified 05/08/17 19:26) oxycodone Allergy (Verified 05/08/17 19:26) Bgyarxa-Gbj-Rrd Reductase Inhibitor Allergy (Verified 05/08/17 19:26) zolpidem [From Ambien] Allergy (Verified 05/08/17 19:26) IVP DYE Allergy (Intermediate, Uncoded 05/08/17 19:26) - Review of Systems ROS: No change since H&P - Vital Signs and I&O's Vital Signs: Temperature 99.0 F Pulse Rate [Left Brachial] 69 Pulse Rate [Right Brachial] 71 Pulse Rate [Apical] 62 Pulse Rate 73 Respiratory Rate 20 Blood Pressure [Left Arm] 122/62 Blood Pressure [Right Arm] 100/58 Blood Pressure 135/74 O2 Sat by Pulse Oximetry 92 Intake and Output: Intake & Output 06/14/17 06/15/17 06/16/17 06/17/17 11:59 11:59 11:59 11:59 Intake Total 3821 1840 Output Total 2225 Balance 1596 1840 - Physical Exam Oriented: Normal Eyes: Normal Ear: Normal Nose: Normal Throat: Normal Respiratory: Diminished Cardiovascular: Normal : Normal Auscultation: Bowel Sounds: Normal Palpation: Normal Tenderness: Diffuse, Mild. negative: Rebound, Guarding, Rigidity Skin: Normal Musculoskeletal: Normal Psychiatric: Normal Mood Description: Calm Affect: Normal Speech Pattern: Unclear - Laboratory and Diagnostics Result Diagrams: 06/17/17 06:24 06/17/17 06:24 Labs: 06/15/17 16:45 Foot - Right Gram Stain - Final 06/15/17 16:45 Foot - Right Wound Culture - Preliminary Laboratory WBC 7.1 X10^3/uL (3.6-10.0) 06/17/17 06:24 RBC 3.99 X10^6/uL (4.7-6.0) L 06/17/17 06:24 Hgb 12.5 g/dL (13.5-18.0) L 06/17/17 06:24 Hct 36.4 % (42.0-54.0) L 06/17/17 06:24 MCV 91.3 fL (80.0-100.0) 06/17/17 06:24 MCH 31.4 pg (27.0-34.0) 06/17/17 06:24 MCHC 34.4 g/dL (33.0-35.0) 06/17/17 06:24 RDW 14.6 % (11.6-16.5) 06/17/17 06:24 Plt Count 163 X10^3/uL (150.0-450.0) 06/17/17 06:24 MPV 9.1 fL (7.4-11.0) 06/17/17 06:24 Neut % (Auto) 69.8 % (42.0-75.0) 06/17/17 06:24 Lymph % (Auto) 11.9 % (21.0-51.0) L 06/17/17 06:24 Bowman % (Auto) 12.8 % (0.0-13.0) 06/17/17 06:24 Eos % (Auto) 4.8 % (0.9-2.9) H 06/17/17 06:24 Baso % (Auto) 0.7 % (0.2-1.0) 06/17/17 06:24 Neut # (Auto) 4.9 x10^3/uL (2.2-4.8) H 06/17/17 06:24 Lymph # (Auto) 0.8 X10^3/uL (1.3-2.9) L 06/17/17 06:24 Bowman # (Auto) 0.9 x10^3/uL (0.3-0.8) H 06/17/17 06:24 Eos # (Auto) 0.3 x10^3/uL (0.0-0.2) H 06/17/17 06:24 Baso # (Auto) 0.0 X10^3/uL (0.0-0.1) 06/17/17 06:24 Absolute Nucleated RBC 0.0 /100WBC 06/17/17 06:24 INR Target Range - 06/15/17 06:32 INR 1.18 (0.8-1.3) 06/15/17 06:32 APTT 31.8 SECONDS (22.9-36.5) 06/15/17 06:32 PTT Comment - 06/15/17 06:32 D-Dimer 2660 ng/mL (0-400) H* 06/15/17 06:32 Sodium 140 mmol/L (136-145) 06/17/17 06:24 Corrected Sodium TNP 06/17/17 06:24 Potassium 4.2 mmol/L (3.5-5.1) 06/17/17 06:24 Chloride 107 mmol/L (98-107) 06/17/17 06:24 Carbon Dioxide 25.3 mmol/L (21-32) 06/17/17 06:24 BUN 11 mg/dL (7-18) 06/17/17 06:24 Creatinine 1.55 mg/dL (0.70-1.30) H 06/17/17 06:24 Est GFR (MDRD) Af Amer 56 (>60) L 06/17/17 06:24 Est GFR (MDRD) Non-Af 46 (>60) L 06/17/17 06:24 Glucose 90 mg/dL (65-99) 06/17/17 06:24 POC Glucose (mg/dL) 117 mg/dL (65-99) H 06/15/17 11:18 Calcium 8.1 mg/dL (8.5-10.1) L 06/17/17 06:24 Corrected Calcium 9.1 mg/dL (8.5-10.1) 06/17/17 06:24 Magnesium 2.0 mg/dL (1.7-2.9) 06/15/17 06:32 Total Bilirubin 0.50 mg/dL (0.2-1.0) 06/17/17 06:24 AST 16 Units/L (15-37) 06/17/17 06:24 ALT 12 Units/L (12-78) 06/17/17 06:24 Alkaline Phosphatase 98 Units/L (46-116) 06/17/17 06:24 Creatine Kinase 28 Units/L (39-308) L 06/16/17 06:15 CK-MB (CK-2) < 1.0 ng/mL (0-4.0) 06/16/17 06:15 CK/CKMB % Calc 3.6 % (<4) 06/16/17 06:15 Troponin I < 0.02 ng/mL (0-1.5) 06/16/17 06:15 Total Protein 6.4 g/dL (6.4-8.2) 06/17/17 06:24 Albumin 2.8 g/dL (3.4-5.0) L 06/17/17 06:24 Globulin 3.6 g/dL (2.5-4.5) 06/17/17 06:24 Albumin/Globulin Ratio 0.8 Ratio (1.1-2.1) L 06/17/17 06:24 TSH 3rd Generation 1.173 uIU/mL (0.358-3.74) 06/15/17 06:32 Specimen Type Clean catch urine 06/15/17 15:16 Urine Color Yellow (YELLOW) 06/15/17 15:16 Urine Appearance Clear (CLEAR) 06/15/17 15:16 Urine pH 6.5 (5.0 - 8.0) 06/15/17 15:16 Ur Specific [place] 1.010 (1.000-1.030) 06/15/17 15:16 Urine Protein 1+ (NEGATIVE) 06/15/17 15:16 Urine Glucose (UA) Negative (NEGATIVE) 06/15/17 15:16 Urine Ketones Negative (NEGATIVE) 06/15/17 15:16 Urine Occult Blood Negative (NEGATIVE) 06/15/17 15:16 Urine Nitrite Negative (NEGATIVE) 06/15/17 15:16 Urine Bilirubin Negative (NEGATIVE) 06/15/17 15:16 Urine Urobilinogen Normal (NORMAL) 06/15/17 15:16 Ur Leukocyte Esterase Negative (NEGATIVE) 06/15/17 15:16 Urine RBC None seen /HPF (NONE SEEN) 06/15/17 15:16 Urine WBC 0-2 /HPF (NONE SEEN) 06/15/17 15:16 Ur Squamous Epith Cells Rare /HPF (NEGATIVE) 06/15/17 15:16 Amorphous Sediment Trace /HPF (NEGATIVE) 06/15/17 15:16 Urine Bacteria Negative /HPF (NEGATIVE) 06/15/17 15:16 Hyaline Casts Rare /LPF (NEGATIVE) 06/15/17 15:16 Ur Culture Indicated? No/not indicated 06/15/17 15:16 - Plan (1) Abdominal pain Status: Acute Qualifiers: Abdominal location: generalized Qualified Code(s): R10.84 - Generalized abdominal pain Plan: ADMIT, NORMAL SALINE AT 125ML/HR, ZOSYN, CONTINUE TO MONITOR (2) Altered mental status Status: Acute Qualifiers: Altered mental status type: unspecified Qualified Code(s): R41.82 - Altered mental status, unspecified (3) Parkinson disease Status: Acute (4) Hyperglycemia Status: Acute (5) Generalized weakness Status: Acute (6) Diabetes Status: Acute Qualifiers: Diabetes mellitus type: type 2 Diabetes mellitus alf insulin use: with meterman use Diabetes mellitus complication status: with unspecified complications Qualified Code(s): E11.8 - Type 2 diabetes mellitus with unspecified complications; Z79.4 - emt intermediate (current) use of insulin; Z79.4 - intermediate (current) use of insulin; Z79.4 - intermediate (current) use of insulin; Z79.4 - intermediate (current) use of insulin
[2017-06-17 11:26] VITALS: BP 141/79
[2017-06-19 06:38] LABS: PSA TOTAL 2.8 ng/mL (0.0-4.0)
== END 2017-06-17 11:28 | disposition home or self-care (01) | DRG 392 ==
LOC: ER 05:44 → MED/SURG 08:00
PROVIDERS: ADMIT Internal Medicine; ATTEND Internal Medicine
DX: R10.84 Generalized abdominal pain (principal); R41.82 Altered mental status, unspecified; I25.10 Atherosclerotic heart disease of native coronary artery without angina pectoris; E11.621 Type 2 diabetes mellitus with foot ulcer; L97.518 Non-pressure chronic ulcer of other part of right foot with other specified severity; I10 Essential (primary) hypertension; N18.9 Chronic kidney disease, unspecified; G20 Parkinson's disease; Z95.1 Presence of aortocoronary bypass graft; Z95.0 Presence of cardiac pacemaker; R94.31 Abnormal electrocardiogram [ECG] [EKG]; R53.1 Weakness; Z79.4 Long term (current) use of insulin; R26.89 Other abnormalities of gait and mobility
CPT/HCPCS: 36415; 70450; 71045; 74176; 80053; 81001; 82550; 82552; 82553; 83519; 83735; 84153; 84154; 84443; 84484; 85025; 85378; 85610; 85730; 87070; 87075; 87205; 93005; 94760; 96365; 96367; 96372; 99284; A4216; A4218; J1650; J2270; J2543

== ENCOUNTER 2018-02-01 23:43 | Inpatient (IN) ==
[2018-02-02] MEDS ORDERED: NS 1000 ML 1,000 ML ONE (00:08)
[2018-02-02] MEDS ORDERED: NS 1000 ML 1,000 ML IV ONE ×2 (00:18→09:27)
[2018-02-02] MEDS ORDERED: PEPCID 20 MG IV PREMIX* 20 MG/50 ML BAG IV ONE ×2 (00:20→00:21)
[2018-02-02] MEDS ORDERED: ZOFRAN INJ 4 MG VIAL IVP ONE (00:20)
[2018-02-02] MEDS ORDERED: ZOFRAN INJ 4 MG VIAL ONE (00:21)
[2018-02-02] MEDS ORDERED: BENTYL I.M. INJ 10 MG IM ONE ×2 (00:31→00:50)
--- NOTE | 2018-02-02 00:32 | DR.ABDMALE ---
HPI Time seen Time Seen by Provider: 02/02/18 00:24 PCP Primary Care Physician: charlotte HPI comment HPI Comment: 77 y/o male with lower abdominal pain onset after he ate chicken pot pie for lunch at a fast food restaurant this afternoon. He has had nausea and vomited multiple times but had no diarrhea. He can't characterize the pain adequately but it hurts and there is no radiation. Complaint Chief Complaint:: pt c/o stomach pain and n/v since lunch time Mode of arrival Mode of Arrival: Wheelchair Timing Onset of Chief Complaint: 02/01/18 PMH PMH Past Medical History: Yes Past Medical History: Coronary Artery Disease, Headaches and Hypertension Past Medical History Comment: parkinsons dz.; LBP Past Surgical History: Yes Surgical History: Angioplasty/Stents, Appendectomy, Bowel Resection, Cholecystectomy, Ortho Surgery, Lithotripsy and Other Past Surgical History Comment: pacemaker Family History History of Family Medical Conditions: Yes Family Medical History: Diabetes Mellitus, Cancer and Coronary Artery Disease Social History Type of Tobacco Use: None Does any household member use tobacco: No Alcohol Use: None Do you use any recreational Drugs:: No Lives With: Family Lives Where: Home infectious screening In the last 2 months have you had wt loss of >10#?: NO Have you had fever, night sweats or hemotysis?: No Have you traveled outside the country in the last 6 months?: No Isolation: Standard ROS Review of Systems Constitutional: No Symptoms Reported Eyes: No Symptoms Reported ENTM: No Symptoms Reported Respiratoy: No Symptoms Reported Cardiovascular: No Symptoms Reported Gastrointestinal/Abdominal: Abdominal Pain (lower abdomen), Nausea and Vomiting Genitourinary: No Symptoms Reported Neurological: No Symptoms Reported Musculoskeletal: No Symptoms Reported Integumentary: No Symptoms Reported Hematologic/Lymphatic: No Symptoms Reported Endocrine: No Symptoms Reported Psychiatric: No Symptoms Reported PE Vital Signs Vital Signs: Temp Pulse Pulse Resp BP BP BP 02/02/18 05:00 82 168/81 02/02/18 02:30 84 173/82 02/02/18 02:00 81 168/88 02/02/18 01:30 81 184/85 02/02/18 01:00 84 175/86 02/02/18 00:30 87 162/83 02/02/18 00:19 89 172/73 02/01/18 23:59 98.6 F 98 H 20 143/81 06/17/17 08:00 141/79 141/79 06/15/17 12:00 100/58 Pulse Ox 02/02/18 05:00 97 02/02/18 02:30 97 02/02/18 02:00 98 02/02/18 01:30 99 02/02/18 01:00 96 02/02/18 00:30 96 02/02/18 00:19 98 02/01/18 23:59 99 06/17/17 08:00 06/15/17 12:00 General Limitations: No Limitations General Appearance: Alert and In No Apparent Distress Head Head Exam: Normal Inspection and Normocephalic Eyes Eye exam: Normal Appearance and EOMI ENT ENT Exam: Normal Exam, Normal Oropharynx and Mucous Membranes Moist Neck Neck Exam: Normal Inspection and Trachea Midline Chest Chest Inspection: Normal Inspection and Symmetric Chest Wall Rise Respiratory Respiratory Exam: Normal Lung Sounds Bilat Cardiovascular Cardiovascular Exam: Regular Rate, Normal Rhythm, Normal Heart Sounds, +S1 and +S2 Abdominal Exam Abdominal Exam: Normal Inspection, Normal Bowel Sounds, Soft and Tenderness (lower abdomen); negative Distention, Guarding, Rebound, Rigidity, Dimnished Bowel Sounds, Hyperactive Bowel Sounds, Hypoactive Bowel Sounds, Organomegaly, Trauma, Incision, Ascites, Mass, Bruit, Pulsatile Mass, Hernia and Other Rectal Rectal Exam: Deferred Back Back Exam: Normal Inspection Extremeties Extremities Exam: Normal Inspection Exam: Male: Deferred Neurologic Neurological Exam: Alert and Oriented X3 Psychiatric Psychiatric Exam: Normal Affect and Normal Mood Skin Skin Exam: Warm, Dry and Normal Color ROR Labs Reviewed Result Diagrams: 02/02/18 00:15 02/02/18 00:15 Laboratory: WBC 13.1 X10^3/uL (3.6-10.0) H 02/02/18 00:15 RBC 4.77 X10^6/uL (4.7-6.0) 02/02/18 00:15 Hgb 15.1 g/dL (13.5-18.0) 02/02/18 00:15 Hct 44.6 % (42.0-54.0) 02/02/18 00:15 MCV 93.6 fL (80.0-100.0) 02/02/18 00:15 MCH 31.7 pg (27.0-34.0) 02/02/18 00:15 MCHC 33.9 g/dL (33.0-35.0) 02/02/18 00:15 RDW 13.9 % (11.6-16.5) 02/02/18 00:15 Plt Count 304 X10^3/uL (150.0-450.0) 02/02/18 00:15 MPV 8.9 fL (7.4-11.0) 02/02/18 00:15 Neut % (Auto) 86.1 % (42.0-75.0) H 02/02/18 00:15 Lymph % (Auto) 5.2 % (21.0-51.0) L 02/02/18 00:15 [place] % (Auto) 7.5 % (0.0-13.0) 02/02/18 00:15 Eos % (Auto) 0.8 % (0.9-2.9) L 02/02/18 00:15 Baso % (Auto) 0.4 % (0.2-1.0) 02/02/18 00:15 Neut # (Auto) 11.3 x10^3/uL (2.2-4.8) H 02/02/18 00:15 Lymph # (Auto) 0.7 X10^3/uL (1.3-2.9) L 02/02/18 00:15 Moody # (Auto) 1.0 x10^3/uL (0.3-0.8) H 02/02/18 00:15 Eos # (Auto) 0.1 x10^3/uL (0.0-0.2) 02/02/18 00:15 Baso # (Auto) 0.1 X10^3/uL (0.0-0.1) 02/02/18 00:15 Absolute Nucleated RBC 0.2 /100WBC 02/02/18 00:15 Sodium 141 mmol/L (136-145) 02/02/18 00:15 Corrected Sodium 142 mmol/L (136-145) 02/02/18 00:15 Potassium 4.4 mmol/L (3.5-5.1) 02/02/18 00:15 Chloride 101 mmol/L (98-107) 02/02/18 00:15 Carbon Dioxide 29.6 mmol/L (21-32) 02/02/18 00:15 BUN 21 mg/dL (7-18) H 02/02/18 00:15 Creatinine 1.63 mg/dL (0.70-1.30) H 02/02/18 00:15 Est GFR (MDRD) Af Amer 53 (>60) L 02/02/18 00:15 Est GFR (MDRD) Non-Af 44 (>60) L 02/02/18 00:15 Glucose 139 mg/dL (65-99) H 02/02/18 00:15 Calcium 10.6 mg/dL (8.5-10.1) H 02/02/18 00:15 Corrected Calcium TNP 02/02/18 00:15 Total Bilirubin 0.30 mg/dL (0.2-1.0) 02/02/18 00:15 AST 32 Units/L (15-37) 02/02/18 00:15 ALT 34 Units/L (12-78) 02/02/18 00:15 Alkaline Phosphatase 196 Units/L (46-116) H 02/02/18 00:15 Total Protein 9.0 g/dL (6.4-8.2) H 02/02/18 00:15 Albumin 3.8 g/dL (3.4-5.0) 02/02/18 00:15 Globulin 5.2 g/dL (2.5-4.5) H 02/02/18 00:15 Albumin/Globulin Ratio 0.7 Ratio (1.1-2.1) L 02/02/18 00:15 Amylase 78 Units/L (25-115) 02/02/18 00:15 Lipase 236 Units/L (73-393) 02/02/18 00:15 Diagnosis Discharge Problem: Small bowel obstruction, Parkinson disease, Benign essential HTN, Acquired hypothyroidism, CKD (chronic kidney disease) stage 3, GFR 30-59 ml/min CAD (coronary artery disease) Qualifiers: Coronary Disease-Associated Artery/Lesion type: [place] artery [place] vs. transplanted heart: [place] heart Associated angina: without angina Qualified Code(s): I25.10 - Atherosclerotic heart disease of [place] coronary artery without angina pectoris Hyperlipidemia Qualifiers: Hyperlipidemia type: mixed hyperlipidemia Qualified Code(s): E78.2 - Mixed hyperlipidemia
[2018-02-02 00:34] LABS: BASOPHILS # (AUTO) 0.1 X10^3/uL (0.0-0.1); BASOPHILS % (AUTO) 0.4 % (0.2-1.0); EOSINOPHILS # (AUTO) 0.1 x10^3/uL (0.0-0.2); EOSINOPHILS % (AUTO) 0.8 % (0.9-2.9); HEMATOCRIT 44.6 % (42.0-54.0); HEMOGLOBIN 15.1 g/dL (13.5-18.0); LYMPHOCYTES # (AUTO) 0.7 X10^3/uL (1.3-2.9); LYMPHOCYTES % (AUTO) 5.2 % (21.0-51.0); MEAN CORPUSCULAR HEMOGLOBIN 31.7 pg (27.0-34.0); MEAN CORPUSCULAR HGB CONC 33.9 g/dL (33.0-35.0); MEAN CORPUSCULAR VOLUME 93.6 fL (80.0-100.0); MEAN PLATELET VOLUME 8.9 fL (7.4-11.0); MONOCYTES % (AUTO) 7.5 % (0.0-13.0); NEUTROPHILS # (AUTO) 11.3 x10^3/uL (2.2-4.8); NEUTROPHILS % (AUTO) 86.1 % (42.0-75.0); PLATELET COUNT 304 X10^3/uL (150.0-450.0); RED BLOOD COUNT 4.77 X10^6/uL (4.7-6.0); RED CELL DISTRIBUTION WIDTH 13.9 % (11.6-16.5); WHITE BLOOD COUNT 13.1 X10^3/uL (3.6-10.0)
[2018-02-02 00:40] LABS: ALANINE AMINOTRANSFERASE 34 Units/L (12-78); ALBUMIN 3.8 g/dL (3.4-5.0); ALKALINE PHOSPHATASE 196 Units/L (46-116); AMYLASE 78 Units/L (25-115); ASPARTATE AMINO TRANSFERASE 32 Units/L (15-37); BLOOD UREA NITROGEN 21 mg/dL (7-18); CALCIUM 10.6 mg/dL (8.5-10.1); CARBON DIOXIDE 29.6 mmol/L (21-32); CHLORIDE 101 mmol/L (98-107); COR NA(FOR HYPERGLY) 142 mmol/L (136-145); CREATININE 1.63 mg/dL (0.70-1.30); LIPASE 236 Units/L (73-393); SODIUM 141 mmol/L (136-145); eGFR NON BLACK RACES 44 (>60)
[2018-02-02] MEDS ORDERED: PHENERGAN INJ 25 MG IVP ONE ×2 (01:51→03:41)
[2018-02-02] MEDS ORDERED: DEMEROL INJ IVP ONE (01:51)
[2018-02-02] MEDS ORDERED: DEMEROL INJ ONE (01:54)
[2018-02-02] MEDS ORDERED: PHENERGAN INJ 25 MG ONE (01:54)
--- NOTE | 2018-02-02 02:09 | RAD ---
Abdomen, chest, three views Indication: Abdominal pain, nausea, vomiting Comparison: Chest radiograph 06/15/2017 Findings: Accounting for AP technique and low lung volumes, there is stable cardiomegaly without congestive failure. Prior CABG changes and left-sided pacemaker noted. The lungs are hypoinflated but grossly clear. No pleural effusion or pneumothorax identified. There are a few mildly dilated, gas-filled small bowel loops throughout the mid abdomen. Radiopaque bowel sutures are noted within the lower pelvis and there is relative paucity of bowel gas seen within the distal colon. No free air or pneumatosis is identified. No pathologic calcifications are seen. Lower lumbar posterior fusion hardware noted. Imaged osseous structures otherwise grossly intact. Impression: Mild cardiomegaly without acute chest process. Mild gaseous distention of the small bowel with relative paucity of bowel gas within the distal colon, possibly representing early developing small bowel obstruction. Consider CT for further evaluation if indicated. Reported By:
--- NOTE | 2018-02-02 04:24 | CT ---
CT abdomen and pelvis without contrast Indication: Abdominal pain, nausea, vomiting Technique: Helical CT images of the abdomen and pelvis were obtained without IV contrast. Reformatted images in the coronal and sagittal planes were also generated for review. Comparison: 06/15/2017 Findings: There is mild scarring versus atelectasis of the bilateral lung bases. Mild cardiomegaly, moderate coronary atherosclerotic disease, prior median sternotomy and partially visualized pacing leads noted. Degenerative changes throughout the spine and fusion hardware within the lower lumbar spine are present. No aggressive osseous lesions are identified. Evaluation for soft tissue pathology is limited without intravenous contrast. The exam is also moderately degraded by patient motion artifact. Accounting for this, the unenhanced liver, spleen, pancreas and adrenals are unremarkable. Tiny bilateral renal calcifications may be vascular in nature or reflect punctate nonobstructing stones. There is no obstructive uropathy. There are several loops of mildly dilated small bowel throughout the upper abdomen. There is relative collapse of the distal small bowel, concerning for moderate grade small bowel obstruction. The transition point is not definitively identified but is suspected within the mid left abdomen where there is abrupt transition to collapsed small bowel. There is stool throughout the colon and rectum, which are otherwise grossly normal. No pneumatosis or portal venous gas is identified to suggest bowel ischemia. There is moderate calcification of the aortoiliac system without aneurysm. The urinary bladder and prostate are normal. Nodular thickening of the omentum is again seen and grossly unchanged in the interval. No free air, significant free fluid or bulky lymphadenopathy is identified. Impression: Imaging findings concerning for moderate grade small bowel obstruction with transition point suspected within the mid left abdomen as above. 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 If not already performed, PET-CT as well as biopsy is again recommended for further evaluation. Please refer to above report for additional findings. Reported By:
[2018-02-02] MEDS ORDERED: ZOFRAN INJ 4 MG VIAL IVP PRN (05:11)
--- NOTE | 2018-02-02 05:24 | RAD ---
Abdomen, one view Indication: NG tube placement Comparison: KUB from earlier today Findings: NG tube terminates over the proximal stomach with side-port distal to the GE junction. Dilated loops of small bowel within the mid abdomen are unchanged since earlier today. Imaged lung bases are clear. Impression: Satisfactory NG tube placement. Reported By:
[2018-02-02] MEDS ORDERED: DEMEROL INJ IVP PRN (05:44)
[2018-02-02 06:19] VITALS: BMI 28.8
[2018-02-02] MEDS: PROTONIX INJ 40 MG VIAL IVP SCH (08:15)
[2018-02-02] MEDS: PHENERGAN INJ 25 MG IV PRN ×2 (08:15→15:00)
[2018-02-02] MEDS ORDERED: NS 1000 ML 2,000 ML ONE (09:23)
[2018-02-02] MEDS: NS 1000 ML 1,000 ML IV SCH ×3 (09:32→18:01)
[2018-02-02] MEDS ORDERED: MORPHINE SULFATE INJ 2 MG INJ ONE (14:41)
[2018-02-02] MEDS: MORPHINE SULFATE INJ 2 MG INJ IVP PRN (14:47)
[2018-02-02] MEDS ORDERED: ATIVAN INJ 2 MG VIAL IVP ONE (16:30)
--- NOTE | 2018-02-02 16:47 | RAD ---
History: Nasogastric tube placement Study: KUB Findings: There is a nasogastric tube with the tip in the mid body of the stomach. There are cholecystectomy clips. The bowel gas pattern is unremarkable. There are posterior surgical fusion rods at L3-4. Impression: Satisfactory nasogastric tube position Reported By:
[2018-02-03] MEDS: MORPHINE SULFATE INJ 2 MG INJ IVP PRN ×3 (01:09→16:02)
[2018-02-03] MEDS: NS 1000 ML 1,000 ML IV SCH ×5 (01:09→20:37)
[2018-02-03 04:58] LABS: BASOPHILS # (AUTO) 0.1 X10^3/uL (0.0-0.1); EOSINOPHILS # (AUTO) 0.1 x10^3/uL (0.0-0.2); EOSINOPHILS % (AUTO) 0.8 % (0.9-2.9); HEMATOCRIT 35.3 % (42.0-54.0); HEMOGLOBIN 12.1 g/dL (13.5-18.0); LYMPHOCYTES # (AUTO) 0.7 X10^3/uL (1.3-2.9); LYMPHOCYTES % (AUTO) 6.9 % (21.0-51.0); MEAN CORPUSCULAR HEMOGLOBIN 31.8 pg (27.0-34.0); MEAN CORPUSCULAR HGB CONC 34.3 g/dL (33.0-35.0); MEAN CORPUSCULAR VOLUME 92.9 fL (80.0-100.0); MONOCYTES # (AUTO) 0.7 x10^3/uL (0.3-0.8); MONOCYTES % (AUTO) 7.4 % (0.0-13.0); NEUTROPHILS # (AUTO) 8.4 x10^3/uL (2.2-4.8); NEUTROPHILS % (AUTO) 83.9 % (42.0-75.0); PLATELET COUNT 213 X10^3/uL (150.0-450.0); RED CELL DISTRIBUTION WIDTH 13.6 % (11.6-16.5)
[2018-02-03 05:11] LABS: ALANINE AMINOTRANSFERASE 32 Units/L (12-78); ALBUMIN 2.7 g/dL (3.4-5.0); ALKALINE PHOSPHATASE 123 Units/L (46-116); ASPARTATE AMINO TRANSFERASE 21 Units/L (15-37); BLOOD UREA NITROGEN 20 mg/dL (7-18); CALCIUM 8.7 mg/dL (8.5-10.1); CARBON DIOXIDE 26.2 mmol/L (21-32); CHLORIDE 107 mmol/L (98-107); COR CA(FOR HYPOALB) 9.7 mg/dL (8.5-10.1); CREATININE 1.47 mg/dL (0.70-1.30); SODIUM 142 mmol/L (136-145); TOTAL PROTEIN 6.7 g/dL (6.4-8.2); eGFR NON BLACK RACES 49 (>60)
[2018-02-03 05:26] LABS: BAND NEUTROPHILS % 3 % (0-10)
[2018-02-03 05:27] LABS: PLATELET MORPHOLOGY COMMENT NORMAL (NORMAL)
--- NOTE | 2018-02-03 07:09 | RAD ---
HISTORY: Follow-up small bowel obstruction Study: Single-view abdomen Comparison: Yesterday Findings: Evaluation of the abdomen demonstrates a nonobstructive bowel gas pattern with an NG tube again noted in the stomach. No pathological soft tissue mass or calcification can be observed. The bony structures are grossly intact. IMPRESSION: 1. No evidence for acute abdominal pathology identified. Reported By:
[2018-02-03] MEDS ORDERED: TORADOL 30 MG VIAL IVP ONE (08:23)
[2018-02-03] MEDS ORDERED: TORADOL 30 MG VIAL ONE (08:32)
[2018-02-03] MEDS: PROTONIX INJ 40 MG VIAL IVP SCH (08:48)
[2018-02-03] MEDS ORDERED: NORMODYNE INJ 20 MG VIAL IV PRN (09:04)
[2018-02-03] MEDS ORDERED: VALIUM INJ ONE (12:18)
[2018-02-03] MEDS: VALIUM INJ IVP PRN ×2 (12:23→20:58)
[2018-02-03] MEDS: PHENERGAN INJ 25 MG IV PRN ×2 (12:41→20:57)
[2018-02-03] MEDS ORDERED: NS 1000 ML 1,000 ML IV ONE (15:28)
[2018-02-03] MEDS ORDERED: SOLU-Medrol 40 MG VIAL IVP SCH (16:00)
[2018-02-03] MEDS ORDERED: CATAPRES-TTS-1 TD SCH (16:00)
[2018-02-03] MEDS: LEVAQUIN PREMIX IV 500 MG 500 MG/100 ML BAG IV SCH (16:02)
[2018-02-03] MEDS ORDERED: PREDNISONE TAB 10 MG PO ONE (18:00)
[2018-02-03] MEDS: SOLU-Medrol 40 MG VIAL IVP SCH (20:37)
[2018-02-04] MEDS ORDERED: PREDNISONE TAB 10 MG PO ONE ×2 (00:01→06:00)
[2018-02-04] MEDS: SOLU-Medrol 40 MG VIAL IVP SCH ×4 (00:26→21:43)
[2018-02-04] MEDS: NS 1000 ML 1,000 ML IV SCH ×5 (00:26→22:19)
[2018-02-04] MEDS ORDERED: PHENERGAN INJ 25 MG IV ONE (01:41)
[2018-02-04] MEDS: MORPHINE SULFATE INJ 2 MG INJ IVP PRN ×2 (05:22→11:41)
[2018-02-04 05:25] LABS: BASOPHILS % (AUTO) 0.1 % (0.2-1.0); HEMATOCRIT 34.9 % (42.0-54.0); HEMOGLOBIN 12.1 g/dL (13.5-18.0); LYMPHOCYTES # (AUTO) 0.5 X10^3/uL (1.3-2.9); LYMPHOCYTES % (AUTO) 5.6 % (21.0-51.0); MEAN CORPUSCULAR HGB CONC 34.7 g/dL (33.0-35.0); MEAN CORPUSCULAR VOLUME 92.2 fL (80.0-100.0); MEAN PLATELET VOLUME 8.9 fL (7.4-11.0); MONOCYTES # (AUTO) 0.1 x10^3/uL (0.3-0.8); MONOCYTES % (AUTO) 1.6 % (0.0-13.0); NEUTROPHILS # (AUTO) 8.5 x10^3/uL (2.2-4.8); NEUTROPHILS % (AUTO) 92.7 % (42.0-75.0); PLATELET COUNT 220 X10^3/uL (150.0-450.0); RED BLOOD COUNT 3.78 X10^6/uL (4.7-6.0); RED CELL DISTRIBUTION WIDTH 13.4 % (11.6-16.5); WHITE BLOOD COUNT 9.2 X10^3/uL (3.6-10.0)
[2018-02-04 05:34] LABS: ALBUMIN 2.7 g/dL (3.4-5.0); CALCIUM 9.2 mg/dL (8.5-10.1); CARBON DIOXIDE 24.9 mmol/L (21-32); COR CA(FOR HYPOALB) 10.2 mg/dL (8.5-10.1); CREATININE 1.46 mg/dL (0.70-1.30); TOTAL PROTEIN 7.1 g/dL (6.4-8.2)
[2018-02-04 05:48] LABS: PLATELET MORPHOLOGY COMMENT NORMAL (NORMAL)
[2018-02-04] MEDS ORDERED: BENADRYL CAP 50 MG PO ONE (06:00)
[2018-02-04] MEDS ORDERED: BENADRYL INJ 50 MG VIAL IV ONE (06:00)
[2018-02-04] MEDS ORDERED: NS 250 ML IV 250 ML IV ONE (06:05)
--- NOTE | 2018-02-04 08:19 | CT ---
HISTORY: Follow-up small bowel obstruction Study: CT abdomen pelvis with contrast Comparison: 02/02/2018 Technique: Axial post-contrast images with coronal and sagittal reformats. Dose reduction procedures were used with mA/kv adjusted for body size. Resolution is limited by respiratory motion and artifact caused by the patient's arms and hands being anterior to the abdomen and within the scanning field. Findings: Evaluation of the lung bases is limited by respiratory motion. No nodules or areas of consolidation are identified. The liver, spleen, adrenal glands, and pancreas appear within normal limits. The kidneys are unobstructed and without stones or masses. No ureteral calculi are identified. Calcific atherosclerotic changes present in a nondilated abdominal aorta. No enlarged intraperitoneal or retroperitoneal lymphadenopathy is identified. The previously noted small bowel obstruction appears to have resolved. Once again noted is extensive nodular thickening in the omentum suspicious for omental metastatic disease. This could be evaluated with PET-CT and/or biopsy if not already performed. Examination of the pelvis demonstrated no evidence for pelvic masses, pelvic fluid, or pelvic lymphadenopathy. No bladder abnormality is identified. No lytic or blastic skeletal lesions of significance are identified. Postsurgical changes are present in the lumbar spine with hardware present. IMPRESSION: Resolution of the previously present small bowel obstruction No significant change in the previously described nodular omental thickening suspicious for omental metastatic disease. Reported By:
[2018-02-04] MEDS: PROTONIX INJ 40 MG VIAL IVP SCH (09:08)
[2018-02-04] MEDS: PHENERGAN INJ 25 MG IV PRN (09:08)
[2018-02-04] MEDS: LEVAQUIN PREMIX IV 500 MG 500 MG/100 ML BAG IV SCH (09:08)
[2018-02-04] MEDS: VALIUM INJ IVP PRN (09:32)
--- NOTE | 2018-02-04 09:33 | DR.H&P ---
H&P - History & Physical for Day of: H&P Date: 02/02/18 - Chief Complaint Chief Complaint: ABDOMINAL PAIN, NAUSEA, VOMITING - History of Present Illness History of Present Illness: IS A 77 YEAR OLD PATIENT OF OURS WHO PRESENTED TO THE EMERGENCY ROOM WITH COMPLAINTS OF ABDOMINAL PAIN THAT STARTED AFTER HE ATE A CHICKEN POT PIE FOR LUNCH THIS AFTERNOON. HE IS NOTED WITH ASSOCIATED SYMPTOMS OF NAUSEA AND VOMITING. HE DENIES DIARRHEA. ON ARRIVAL, VITALS WERE 98.6-98-20-99%RA-143/81. LABS WERE OBTAINED. ABNORMAL LAB VALUES INCLUDE THE FOLLOWING: WBC 13.1, BUN 21, CREATININE 1.63, GLUCOSE 139, ALK PHOS 196, TOTAL PROTEIN 9.0, GLOBULIN 5.2. AN ABDOMINAL SERIES WAS OBTAINED AND REVEALED: Mild cardiomegaly without acute chest process. Mild gaseous distention of the small bowel with relative paucity of bowel gas within the distal colon, possibly representing early developing small bowel obstruction. Consider CT for further evaluation if indicated. AN ABDOMEN/PELVIS CT WITHOUT CONTRAST WAS THEN OBTAINED AND REVEALED: Imaging findings concerning for moderate grade small bowel obstruction with transition point suspected within the mid left abdomen as above. Grossly stable nodular omental thickening, again concerning for periton eal carcinomatosis. If not already performed, PET-CT as well as biopsy is again recommended for further evaluation. HE WAS ADMITTED FOR FURTHER EVALUATION AND TREATMENT OF SMALL BOWEL OBSTRUCTION AND CHRONIC KIDNEY DISEASE. AN NG TUBE WAS INSERTED AND PLACED ON LOW INTERMITTENT SUCTION. HE WAS STARTED ON NORMAL SALINE AT 150ML/HR THIS MORNING AND GIVEN A LITER BOLUS. WE WILL HOLD HIS ORAL MEDICATI ONS TODAY. OTHERWISE, WE WILL FOLLOW UP WITH AM LABS AND KUB AND CONTINUE TO MONITOR. - Past Medical History Past Medical History: Coronary Artery Disease, Hypertension, Headaches Additional Medical History: Hx Diverticulosis, Atrial Fibrillation - Past Surgical History Surgical History: Angioplasty/Stents, Appendectomy, Bowel Resection, Cholecystectomy, Lithotripsy, Ortho Surgery, Other Additional Surgical History: Cardiac Ablation - Family History Family Medical History: Diabetes Mellitus, Cancer, Coronary Artery Disease - Social History Type of Tobacco Use: None Does any household member use tobacco: No Alcohol Use: None Drug Use: None - Medications Home Medications: codeine Allergy (Verified 05/08/17 19:26) IVP DYE Allergy (Intermediate, Uncoded 05/08/17 19:26) - Review of Systems Constitutional: No Symptoms Reported. denies: Fever, Chills Eyes: No Symptoms Reported ENT: No Symptoms Reported Respiratory: No Symptoms Reported Cardiovascular: No Symptoms Reported Gastrointestinal: See HPI, Nausea, Vomiting, Abdominal Pain. denies: Diarrhea, Constipation, Melena, Hematochezia Genitourinary: No Symptoms Reported Musculoskeletal: No Symptoms Reported Skin: No Symptoms Reported Neurological: No Symptoms Reported - Physical Exam Vital Signs: Temperature 98.2 F Pulse Rate [Right] 85 Pulse Rate 98 Respiratory Rate 18 Blood Pressure [Left Arm] 141/79 Blood Pressure [Right Arm] 156/75 Blood Pressure 143/81 O2 Sat by Pulse Oximetry 96 Oriented: Normal Eyes: Normal Ear: Normal Nose: Normal Throat: Normal Respiratory: Diminished Throughout Cardiovascular: Normal. negative: S3, S4, Murmur : Normal Auscultation: Bowel Sounds: Normal Palpation: Normal Tenderness: Normal Skin: Normal Musculoskeletal: Normal Psychiatric: Normal Mood Description: Calm Affect: Normal Speech Pattern: Clear - Assessment/Plan (1) Small bowel obstruction Status: Acute - Allergies Allergies/Adverse Reactions: Allergies Allergy/AdvReac Type Severity Reaction Status Date / Time codeine Allergy Verified 05/08/17 19:26 IVP DYE Allergy Intermediate Uncoded 05/08/17 19:26
[2018-02-04] MEDS ORDERED: CHLORASEPTIC SPRAY MT ONE (13:49)
[2018-02-04] MEDS: SINEMET (PLAIN) 25/250 MG PO SCH ×3 (13:54→21:43)
[2018-02-04] MEDS: NEURONTIN CAP 300 MG PO SCH ×2 (13:55→21:43)
[2018-02-04] MEDS ORDERED: CHLORASEPTIC SPRAY MT PRN (14:36)
[2018-02-04] MEDS ORDERED: EMLA CREAM TOP PRN (15:56)
[2018-02-04] MEDS: SYNTHROID 175 mcg TAB PO SCH ×2 (16:55→16:56)
[2018-02-04] MEDS ORDERED: HYTRIN PO SCH (21:00)
[2018-02-04] MEDS ORDERED: COLACE CAP 100 MG PO SCH (21:00)
[2018-02-04] MEDS ORDERED: RESTORIL CAP 15 MG PO PRN (21:21)
[2018-02-04] MEDS: MILK OF MAGNESIA PO SCH ×2 (21:43→21:56)
[2018-02-05 05:20] LABS: BASOPHILS % (AUTO) 0 % (0.2-1.0); HEMATOCRIT 30.4 % (42.0-54.0); HEMOGLOBIN 10.5 g/dL (13.5-18.0); LYMPHOCYTES # (AUTO) 0.4 X10^3/uL (1.3-2.9); LYMPHOCYTES % (AUTO) 3.8 % (21.0-51.0); MEAN CORPUSCULAR HEMOGLOBIN 31.9 pg (27.0-34.0); MEAN CORPUSCULAR HGB CONC 34.5 g/dL (33.0-35.0); MEAN CORPUSCULAR VOLUME 92.3 fL (80.0-100.0); MEAN PLATELET VOLUME 9.1 fL (7.4-11.0); MONOCYTES # (AUTO) 0.6 x10^3/uL (0.3-0.8); MONOCYTES % (AUTO) 4.9 % (0.0-13.0); NEUTROPHILS # (AUTO) 10.4 x10^3/uL (2.2-4.8); NEUTROPHILS % (AUTO) 91.3 % (42.0-75.0); PLATELET COUNT 208 X10^3/uL (150.0-450.0); RED BLOOD COUNT 3.29 X10^6/uL (4.7-6.0); RED CELL DISTRIBUTION WIDTH 13.3 % (11.6-16.5); WHITE BLOOD COUNT 11.4 X10^3/uL (3.6-10.0)
[2018-02-05 05:31] LABS: ALANINE AMINOTRANSFERASE 13 Units/L (12-78); ALBUMIN 2.5 g/dL (3.4-5.0); ALKALINE PHOSPHATASE 144 Units/L (46-116); ASPARTATE AMINO TRANSFERASE 57 Units/L (15-37); BLOOD UREA NITROGEN 30 mg/dL (7-18); CALCIUM 8.9 mg/dL (8.5-10.1); CARBON DIOXIDE 23.7 mmol/L (21-32); CHLORIDE 107 mmol/L (98-107); COR CA(FOR HYPOALB) 10.1 mg/dL (8.5-10.1); COR NA(FOR HYPERGLY) 141 mmol/L (136-145); CREATININE 1.37 mg/dL (0.70-1.30); SODIUM 140 mmol/L (136-145); TOTAL PROTEIN 6.3 g/dL (6.4-8.2); eGFR NON BLACK RACES 53 (>60)
[2018-02-05] MEDS: NS 1000 ML 1,000 ML IV SCH ×2 (05:46→11:09)
[2018-02-05 05:47] LABS: PLATELET MORPHOLOGY COMMENT NORMAL (NORMAL)
[2018-02-05] MEDS: NEURONTIN CAP 300 MG PO SCH (05:48)
[2018-02-05] MEDS: SOLU-Medrol 40 MG VIAL IVP SCH (05:48)
[2018-02-05] MEDS: LEVAQUIN PREMIX IV 500 MG 500 MG/100 ML BAG IV SCH (09:27)
[2018-02-05] MEDS: SINEMET (PLAIN) 25/250 MG PO SCH (09:28)
[2018-02-05] MEDS: PROTONIX INJ 40 MG VIAL IVP SCH (09:29)
[2018-02-05 12:39] VITALS: BP 172/80
== END 2018-02-05 13:10 | disposition home or self-care (01) | DRG 390 ==
LOC: ER 23:52 → MED/SURG 02-02 05:39
PROVIDERS: ADMIT Internal Medicine; ATTEND Internal Medicine
DX: N18.3 Chronic kidney disease, stage 3 (moderate); I25.10 Atherosclerotic heart disease of native coronary artery without angina pectoris; I12.9 Hypertensive chronic kidney disease with stage 1 through stage 4 chronic kidney disease, or unspecified chronic kidney disease; K56.690 Other partial intestinal obstruction; M62.81 Muscle weakness (generalized); R11.2 Nausea with vomiting, unspecified; R10.84 Generalized abdominal pain; G20 Parkinson's disease; E03.8 Other specified hypothyroidism
CPT/HCPCS: 36415; 43753; 74000; 74018; 74022; 74176; 74177; 80053; 82150; 82378; 83690; 85025; 87040; 96365; 96367; 96372; 96374; 96375; 97116; 97162; 97166; 99283; 99284; A4216; A4222; C9113; S0028; J0500; J1200; J1885; J1956; J2060; J2175; J2270; J2405; J2550; J2920; J3360; J3490; J7030; J7050; J7512

== ENCOUNTER 2019-03-05 12:38 | Inpatient (IN) ==
[2019-03-05 12:57] VITALS: BMI 29.1
--- NOTE | 2019-03-05 13:29 | DR.HIP ---
HPI Time Seen Time Seen by Provider: 03/05/19 13:21 PCP Primary Care Physician: charlotte HPI Comment HPI Comment: states that patient is unable to weight bear or walk Complaint Chief Complaint:: pt has chronic hip pain that is worse the last month. pt has cancer and is taking chemo. stated today he is unable to do anything himself with his right hip, and has been hard to wake up. Chief Complaint Doctors Comments: states that he has seen 3 different physicians (ortho) and had hips injected last week. "No body CT'd his hip". Was in Dr. Mejia's office yesterday. "When he tries to stand he cannot because he is to shaky" Reviewed Nurses Notes Review: Yes Source History Provided: Patient and Family Member () Mode of Arrival Mode of Arrival: Wheelchair Location Location: Right and Hip (Pt. states more unstable feeling and weakness in legs B/L than hip pain) Timing Onset of Chief Complaint: 01/10/19 Severity Able to bear weight:: No Context Mechanism:: No trauma (Chronic problem) History of:: Arthritis and None (Parkinson's) PMH PMH Past Medical History: Yes Past Medical History: Coronary Artery Disease, Headaches and Hypertension Past Surgical History: Yes Surgical History: Angioplasty/Stents, Appendectomy, Bowel Resection, C holecystectomy, Ortho Surgery, Lithotripsy and Other Family History History of Family Medical Conditions: Yes Family Medical History: Diabetes Mellitus, Cancer and Coronary Artery Disease Social History Does patient currently use any type of tobacco product: No Have you used tobacco products in the last 12 months: No Type of Tobacco Use: None Does any household member use tobacco: No Alcohol Use: None Do you use any recreational Drugs:: No Lives With: Significant Other Lives Where: Home infectious screening In the last 2 months have you had wt loss of >10#?: YES Have you had fever, night sweats or hemotysis?: Yes Have you traveled outside the country in the last 6 months?: No Isolation: Standard ROS Review of Systems Constitutional: Weakness; negative Chills, Diaphoresis, Fever, Malaise and Fatigue Eyes: No Symptoms Reported ENTM: No Symptoms Reported Respiratoy: No Symptoms Reported Cardiovascular: No Symptoms Reported Gastrointestinal/Abdominal: No Symptoms Reported Genitourinary: Other (nocturia with incidence of incontinence) Neurological: No Symptoms Reported, Paresthesia (R UE old/chronic), Tremors (Parkinsonian) and Weakness (LE b/l chronic -worsening); negative Numbness and Tingling Musculoskeletal: See HPI Integumentary: No Symptoms Reported Hematologic/Lymphatic: No Symptoms Reported Endocrine: No Symptoms Reported Psychiatric: No Symptoms Reported; negative Depression and Hallucinations All Other Systems: Reviewed and Negative PE Vital Signs Vitals: Temperature 98.2 F Pulse Rate 68 Respiratory Rate 22 Blood Pressure [Left Arm] 141/79 Blood Pressure [Right Arm] 172/80 Blood Pressure 119/56 O2 Sat by Pulse Oximetry 100 General Limitations: No Limitations General Appearance: Alert and In No Apparent Distress; negative Lethargic, Obtunded and In Distress ENT ENT Exam: Normal Exam Neck Neck Exam: Normal Inspection Chest Chest Inspection: Normal Inspection Respiratory Respiratory Exam: Normal Lung Sounds Bilat Cardiovascular Cardiovascular Exam: Regular Rate Abdominal Exam Abdominal Exam: Normal Inspection Extremities Extremities Exam: Normal Capillary Refill and Edema (1 + edema LE b/l); negative Full ROM and Calf Tenderness Lower Extremities Hip/Pelvis Exam: Pelvis Stable; negative Full ROM, Tenderness, Swelling, Ecchym osis, Deformity, Erythema, External Rotation, Internal Rotation and Shortening Upper Leg Exam: negative Normal Inspection, Full ROM, Tenderness, Swelling, Ecchymosis and Erythema Knee Exam: negative Full ROM, Tenderness, Swelling, Deformity and Erythema Lower Leg Exam: Swelling (mild edema b/l); negative Normal Inspection, Full ROM, Tenderness and Erythema Ankle Exam: Full ROM Foot/Toe Exam: Normal Inspection Neurovascular/Tendon Exam: Normal Capillary Refill Back Back Exam: negative Full ROM and Tenderness Neurologic Neurological Exam: Alert and Oriented X3; negative CN II-XII Intact, Normal Gait and Motor Sensory Deficit Psychiatric Psychiatric Exam: Normal Affect and Normal Mood MDM Additional Information obtained Additional Information Obtained: Family Differential Diagnosis Differential Diagnosis: Arthritis, DJD, Hip fracture, Pelvis fracture and Other ROR Labs Reviewed Laboratory Results Reviewed?: Yes Result Diagrams: 03/05/19 14:05 03/05/19 14:05 Laboratory: WBC 5.5 X10^3/uL (3.6-10.0) 03/05/19 14:05 RBC 2.98 X10^6/uL (4.7-6.0) L 03/05/19 14:05 Hgb 10.3 g/dL (13.5-18.0) L 03/05/19 14:05 Hct 30.3 % (42.0-54.0) L 03/05/19 14:05 MCV 101.5 fL (80.0-100.0) H 03/05/19 14:05 MCH 34.6 pg (27.0-34.0) H 03/05/19 14:05 MCHC 34.1 g/dL (33.0-35.0) 03/05/19 14:05 RDW 17.5 % (11.6-16.5) H 03/05/19 14:05 Plt Count 118 X10^3/uL (150.0-450.0) L 03/05/19 14:05 MPV 9.4 fL (7.4-11.0) 03/05/19 14:05 Neut % (Auto) 69.1 % (42.0-75.0) 03/05/19 14:05 Lymph % (Auto) 12.7 % (21.0-51.0) L 03/05/19 14:05 [place] % (Auto) 14.9 % (0.0-13.0) H 03/05/19 14:05 Eos % (Auto) 2.6 % (0.9-2.9) 03/05/19 14:05 Baso % (Auto) 0.7 % (0.2-1.0) 03/05/19 14:05 Neut # (Auto) 3.8 x10^3/uL (2.2-4.8) 03/05/19 14:05 Lymph # (Auto) 0.7 X10^3/uL (1.3-2.9) L 03/05/19 14:05 [place] # (Auto) 0.8 x10^3/uL (0.3-0.8) 03/05/19 14:05 Eos # (Auto) 0.1 x10^3/uL (0.0-0.2) 03/05/19 14:05 Baso # (Auto) 0.0 X10^3/uL (0.0-0.1) 03/05/19 14:05 Absolute Nucleated RBC 0.1 /100WBC 03/05/19 14:05 Sodium 138 mmol/L (136-145) 03/05/19 14:05 Corrected Sodium TNP 03/05/19 14:05 Potassium 4.2 mmol/L (3.5-5.1) 03/05/19 14:05 Chloride 101 mmol/L (98-107) 03/05/19 14:05 Carbon Dioxide 30.5 mmol/L (21-32) 03/05/19 14:05 BUN 22 mg/dL (7-18) H 03/05/19 14:05 Creatinine 1.71 mg/dL (0.70-1.30) H 03/05/19 14:05 Est GFR (MDRD) Af Amer 50 (>60) L 03/05/19 14:05 Est GFR (MDRD) Non-Af 41 (>60) L 03/05/19 14:05 Glucose 98 mg/dL (65-99) 03/05/19 14:05 Calcium 9.0 mg/dL (8.5-10.1) 03/05/19 14:05 Corrected Calcium 10.0 mg/dL (8.5-10.1) 03/05/19 14:05 Total Bilirubin 0.30 mg/dL (0.2-1.0) 03/05/19 14:05 AST 19 Units/L (15-37) 03/05/19 14:05 ALT 15 Units/L (12-78) 03/05/19 14:05 Alkaline Phosphatase 121 Units/L (46-116) H 03/05/19 14:05 Total Protein 6.9 g/dL (6.4-8.2) 03/05/19 14:05 Albumin 2.8 g/dL (3.4-5.0) L 03/05/19 14:05 Globulin 4.1 g/dL (2.5-4.5) 03/05/19 14:05 Albumin/Globulin Ratio 0.7 Ratio (1.1-2.1) L 03/05/19 14:05 Specimen Type Random urine 03/05/19 13:42 Urine Color Yellow (YELLOW) 03/05/19 13:42 Urine Appearance Clear (CLEAR) 03/05/19 13:42 Urine pH 6.0 (5.0 - 8.0) 03/05/19 13:42 Ur Specific [place] 1.015 (1.000-1.030) 03/05/19 13:42 Urine Protein 1+ (NEGATIVE) 03/05/19 13:42 Urine Glucose (UA) Negative (NEGATIVE) 03/05/19 13:42 Urine Ketones Negative (NEGATIVE) 03/05/19 13:42 Urine Occult Blood Negative (NEGATIVE) 03/05/19 13:42 Urine Nitrite Negative (NEGATIVE) 03/05/19 13:42 Urine Bilirubin Negative (NEGATIVE) 03/05/19 13:42 Urine Urobilinogen Normal (NORMAL) 03/05/19 13:42 Ur Leukocyte Esterase Negative (NEGATIVE) 03/05/19 13:42 Urine RBC None seen /HPF (0-3) 03/05/19 13:42 Urine WBC None seen /HPF (0-5) 03/05/19 13:42 Ur Squamous Epith Cells Negative /HPF (NEGATIVE) 03/05/19 13:42 Urine Bacteria Negative /HPF (NEGATIVE) 03/05/19 13:42 Ur Culture Indicated? No/not indicated 03/05/19 13:42 Opioid Opioid Risk Tool Total: 0 Total Score Risk Category: Low Risk Copyright: Patrice MAGAÑA predicting aberrant behaviors Diagnosis Discharge Problem: Weakness generalized, Unable to ambulate, Chronic kidney disease, Parkinson disease, Chronic anemia Instructions Forms: Excuse From Work Patient Portal
[2019-03-05 13:54] LABS: BILIRUBIN,URINE NEGATIVE (NEGATIVE); BLOOD/HEMOGLOBIN,URINE NEGATIVE (NEGATIVE); GLUCOSE, URINE NEGATIVE (NEGATIVE); KETONES,URINE NEGATIVE (NEGATIVE); LEUKOCYTE ESTERASE ,URINE NEGATIVE (NEGATIVE); NITRITES,URINE NEGATIVE (NEGATIVE); PROTEIN,URINE 1+ (NEGATIVE); UROBILINOGEN,URINE NORMAL (NORMAL)
[2019-03-05 14:03] LABS: APPEARANCE,URINE CLEAR (CLEAR); BACTERIA,URINE NEGATIVE /HPF (NEGATIVE); COLOR,URINE YELLOW (YELLOW); RBC,URINE NONE SEEN /HPF (0-3); SQUAMOUS EPITHELIAL CELL,UR NEGATIVE /HPF (NEGATIVE)
--- NOTE | 2019-03-05 14:16 | CT ---
HISTORYWEAKNESS/DIFFICULTY WALKING, PAINSTUDYPELVIS W/O CONCOMPARISONNoneTECHNIQUEMultiple axial images of the pelvis were obtained from the level above the iliac crests through the proximal femurs without administration of IV contrast. Dose reduction techniques including Automated Exposure Control (AEC) and adjustment of mA and kV were utilized.FINDINGSThere is moderate joint space narrowing symmetrically in both hips with mild osteophytes throughout. No fracture or dislocation is seen. There is moderate narrowing and prominent osteophytes along both SI joints. The bones are osteopenic. The pelvis is intact. Sacrum and coccyx are intact. There postop changes seen the lower lumbar spine with moderate degenerative disc changes inferiorly. The periarticular soft tissues are unremarkable. No pelvic mass or inflammation is seen.IMPRESSIONModerate osteoarthritic changes in both hips and both SI joints with no acute bony abnormality.Diffuse osteopenia.No pelvic mass or inflammation.Electronically signed by: SABAS SMITH (Mar 05, 2019 14:14:27)
[2019-03-05 14:26] LABS: BASOPHILS % (AUTO) 0.7 % (0.2-1.0); EOSINOPHILS # (AUTO) 0.1 x10^3/uL (0.0-0.2); EOSINOPHILS % (AUTO) 2.6 % (0.9-2.9); HEMATOCRIT 30.3 % (42.0-54.0); HEMOGLOBIN 10.3 g/dL (13.5-18.0); LYMPHOCYTES # (AUTO) 0.7 X10^3/uL (1.3-2.9); LYMPHOCYTES % (AUTO) 12.7 % (21.0-51.0); MEAN CORPUSCULAR HEMOGLOBIN 34.6 pg (27.0-34.0); MEAN CORPUSCULAR HGB CONC 34.1 g/dL (33.0-35.0); MEAN CORPUSCULAR VOLUME 101.5 fL (80.0-100.0); MEAN PLATELET VOLUME 9.4 fL (7.4-11.0); MONOCYTES # (AUTO) 0.8 x10^3/uL (0.3-0.8); MONOCYTES % (AUTO) 14.9 % (0.0-13.0); NEUTROPHILS # (AUTO) 3.8 x10^3/uL (2.2-4.8); NEUTROPHILS % (AUTO) 69.1 % (42.0-75.0); PLATELET COUNT 118 X10^3/uL (150.0-450.0); RED BLOOD COUNT 2.98 X10^6/uL (4.7-6.0); RED CELL DISTRIBUTION WIDTH 17.5 % (11.6-16.5); WHITE BLOOD COUNT 5.5 X10^3/uL (3.6-10.0)
[2019-03-05 14:39] LABS: ALANINE AMINOTRANSFERASE 15 Units/L (12-78); ALBUMIN 2.8 g/dL (3.4-5.0); ALKALINE PHOSPHATASE 121 Units/L (46-116); ASPARTATE AMINO TRANSFERASE 19 Units/L (15-37); BLOOD UREA NITROGEN 22 mg/dL (7-18); CARBON DIOXIDE 30.5 mmol/L (21-32); CHLORIDE 101 mmol/L (98-107); CREATININE 1.71 mg/dL (0.70-1.30); SODIUM 138 mmol/L (136-145); TOTAL PROTEIN 6.9 g/dL (6.4-8.2); eGFR NON BLACK RACES 41 (>60)
[2019-03-05] MEDS: MILK OF MAGNESIA PO SCH (22:10)
[2019-03-05] MEDS: COLACE CAP 100 MG PO SCH (22:10)
[2019-03-06 06:35] LABS: ALANINE AMINOTRANSFERASE 22 Units/L (12-78); ALBUMIN 2.6 g/dL (3.4-5.0); ALKALINE PHOSPHATASE 112 Units/L (46-116); ASPARTATE AMINO TRANSFERASE 16 Units/L (15-37); BLOOD UREA NITROGEN 18 mg/dL (7-18); CALCIUM 8.7 mg/dL (8.5-10.1); CARBON DIOXIDE 28.3 mmol/L (21-32); CHLORIDE 101 mmol/L (98-107); COR CA(FOR HYPOALB) 9.8 mg/dL (8.5-10.1); SODIUM 137 mmol/L (136-145); TOTAL PROTEIN 6.6 g/dL (6.4-8.2); eGFR NON BLACK RACES 45 (>60)
[2019-03-06] MEDS: COLACE CAP 100 MG PO SCH (08:24)
[2019-03-06] MEDS: MILK OF MAGNESIA PO SCH (08:25)
[2019-03-06] MEDS ORDERED: SOLU-Cortef INJ IVP ONE (09:00)
--- NOTE | 2019-03-06 15:34 | RAD ---
HISTORYSOB, hypertension, carcinomaSTUDYAP [id number] significant cardiomegaly. Stable position of pacing device. Sternal wires again noted. Right IJ catheter present. Diffuse interstitial increase in the lungs, unchanged. No consolidation or pneumothorax or pleural fluid.IMPRESSIONNo interval change, considering technical differences. Persistent prominence of the interstitial pulmonary pattern, likely chronic.Electronically signed by: DEONNA DEVI (Mar 06, 2019 15:33:10)
[2019-03-06] MEDS ORDERED: FIORICET TAB PO PRN (17:41)
[2019-03-06] MEDS ORDERED: DECADRON TAB PO ONE (17:44)
[2019-03-06] MEDS ORDERED: ASPIRIN EC 81 MG PO SCH (17:45)
[2019-03-06] MEDS ORDERED: REGLAN TAB 10 MG PO PRN (17:48)
[2019-03-06] MEDS ORDERED: PERCOCET TAB 5/325 MG PO PRN (17:53)
[2019-03-06] MEDS ORDERED: MIRALAX POWDER (1 DOSE 17 G) PO PRN (17:55)
[2019-03-06] MEDS ORDERED: PHENERGAN TAB 25 MG PO PRN (17:57)
[2019-03-06] MEDS ORDERED: ZOFRAN INJ 4 MG VIAL IVP PRN (18:08)
[2019-03-06] MEDS ORDERED: SINEMET (PLAIN) 25/250 MG PO ONE (18:15)
[2019-03-06] MEDS ORDERED: PROTONIX INJ 40 MG VIAL ONE (18:15)
[2019-03-06] MEDS ORDERED: ASPIRIN EC 81 MG PO ONE (18:15)
[2019-03-06] MEDS ORDERED: NEURONTIN CAP 300 MG PO ONE (18:15)
[2019-03-06] MEDS ORDERED: VITAMIN D3 PO ONE ×2 (18:16→18:28)
[2019-03-06] MEDS ORDERED: LEXAPRO ONE (18:17)
[2019-03-06] MEDS ORDERED: TORADOL 30 MG VIAL ONE (18:17)
[2019-03-06] MEDS ORDERED: ZETIA TAB 10 MG ONE (18:17)
[2019-03-06] MEDS ORDERED: DECADRON TAB ONE (18:18)
[2019-03-06] MEDS: TORADOL 30 MG VIAL IVP SCH ×2 (18:25→21:31)
[2019-03-06] MEDS ORDERED: MILK OF MAGNESIA PO PRN (18:26)
[2019-03-06] MEDS: PROTONIX INJ 40 MG VIAL IVP SCH (18:27)
[2019-03-06] MEDS: LEXAPRO PO SCH (18:28)
[2019-03-06] MEDS: VITAMIN D3 PO SCH (18:28)
[2019-03-06] MEDS: ZETIA TAB 10 MG PO SCH (18:28)
[2019-03-06] MEDS: NEURONTIN CAP 300 MG PO SCH ×2 (18:29→21:31)
[2019-03-06] MEDS: SINEMET (PLAIN) 25/250 MG PO SCH ×2 (18:29→21:32)
[2019-03-06] MEDS: KLONOPIN TAB 1 MG PO SCH (21:31)
[2019-03-06] MEDS: HYTRIN PO SCH (21:31)
[2019-03-06] MEDS: TOPROL XL PO SCH (21:31)
[2019-03-06] MEDS ORDERED: SINEMET (PLAIN) 25/250 MG PO SCH (22:00)
[2019-03-06] MEDS ORDERED: NEURONTIN CAP 300 MG PO SCH (22:00)
[2019-03-07] MEDS: TORADOL 30 MG VIAL IVP SCH ×4 (04:12→20:50)
[2019-03-07 06:03] LABS: BASOPHILS % (AUTO) 0.2 % (0.2-1.0); HEMATOCRIT 29.8 % (42.0-54.0); HEMOGLOBIN 10.3 g/dL (13.5-18.0); LYMPHOCYTES # (AUTO) 0.4 X10^3/uL (1.3-2.9); LYMPHOCYTES % (AUTO) 7.1 % (21.0-51.0); MEAN CORPUSCULAR HEMOGLOBIN 34.3 pg (27.0-34.0); MEAN CORPUSCULAR HGB CONC 34.6 g/dL (33.0-35.0); MEAN CORPUSCULAR VOLUME 99.1 fL (80.0-100.0); MEAN PLATELET VOLUME 8.2 fL (7.4-11.0); MONOCYTES # (AUTO) 0.2 x10^3/uL (0.3-0.8); MONOCYTES % (AUTO) 4.6 % (0.0-13.0); NEUTROPHILS # (AUTO) 4.5 x10^3/uL (2.2-4.8); NEUTROPHILS % (AUTO) 88.1 % (42.0-75.0); PLATELET COUNT 122 X10^3/uL (150.0-450.0); RED BLOOD COUNT 3.01 X10^6/uL (4.7-6.0); WHITE BLOOD COUNT 5.1 X10^3/uL (3.6-10.0)
[2019-03-07 06:18] LABS: ALBUMIN 2.6 g/dL (3.4-5.0); CALCIUM 9.1 mg/dL (8.5-10.1); CARBON DIOXIDE 28.3 mmol/L (21-32); COR CA(FOR HYPOALB) 10.2 mg/dL (8.5-10.1); CREATININE 1.61 mg/dL (0.70-1.30); TOTAL PROTEIN 6.7 g/dL (6.4-8.2)
[2019-03-07] MEDS ORDERED: LEXAPRO ONE (08:43)
[2019-03-07] MEDS: NEURONTIN CAP 300 MG PO SCH ×4 (10:21→22:07)
[2019-03-07] MEDS: SINEMET (PLAIN) 25/250 MG PO SCH ×4 (10:22→22:07)
[2019-03-07] MEDS: SYNTHROID 175 mcg TAB PO SCH ×2 (10:22→16:29)
[2019-03-07] MEDS: LEXAPRO PO SCH (10:55)
[2019-03-07] MEDS: DECADRON TAB PO SCH (10:55)
[2019-03-07] MEDS: PROTONIX INJ 40 MG VIAL IVP SCH (10:56)
[2019-03-07] MEDS: LOVENOX INJ 40 MG SYR SC SCH (10:56)
[2019-03-07] MEDS: ZETIA TAB 10 MG PO SCH (10:58)
[2019-03-07] MEDS: VITAMIN D3 PO SCH (10:58)
[2019-03-07] MEDS: ZINC SULFATE PO SCH (10:59)
[2019-03-07] MEDS: OXYBUTYNIN CHLORIDE ER PO SCH (16:12)
--- NOTE | 2019-03-07 20:07 | DR.H&P ---
H&P - History & Physical for Day of: H&P Date: 03/06/19 - Chief Complaint Chief Complaint: RIGHT HIP PAIN, WEAKNESS - History of Present Illness History of Present Illness: IS A 78 YEAR OLD PATIENT OF OURS WHO PRESENTED TO THE ER WITH REPORTS OF SEVERE RIGHT HIP PAIN AND WEAKNESS. HIS SPOUSE REPORTS THAT HE HAS BEEN RECEIVING CHEMO AND HAS BEEN WEAK AND UNABLE TO BEAR WEIGHT ON HIS RIGHT HIP. SHE REPORTS THAT HE IS NOT ABLE TO STAND ON HIS OWN. ON ARRIVAL, VITALS WERE 98.2-68-16-98%-139/84. LABS WERE OBTAINED. ABNORMAL LAB VALUES INCLUDE THE FOLLOWING: RBC 2.98, HGB 10.3, HCT 30.3, PLT COUNT 118, BUN 22, CREATININE 1.71, ALK PHOS 121, ALBUMIN 2.8. A URINALYSIS WAS OBTAINED AND IS UNREMARKABLE. BLOOD CULTURES OBTAINED. A PELVIS CT WITHOUT CONTRAST WAS OBTAINED AND REVEALED: Moderate osteoarthritic changes in both hips and both SI joints with no acute bony abnormality. Diffuse osteopenia. No pelvic mass or inflammation. HE WAS ADMITTED TO THE HOSPITAL FOR FURTHER EVALUATION AND TREATMENT OF SEVERE HIP PAIN AND WEAKNESS. HE WAS STARTED ON MORPHINE 1-2MG IV Q4H PRN AND HOME MEDICATIONS WERE RESUMED. TODAY, WE WILL START TORADOL 15MG IV Q6H CHERYL AND LOVENOX 40MG SC DAILY. OTHERWISE, WE WILL FOLLOW UP WITH AM LABS AND CONTINUE TO MONITOR. - Past Medical History Past Medical History: Coronary Artery Disease, Hypertension, Headaches Additional Medical History: Hx Diverticulosis, Atrial Fibrillation - Past Surgical History Surgical History: Angioplasty/Stents, Appendectomy, Bowel Resection, Cholecystectomy, Lithotripsy, Ortho Surgery, Other Additional Surgical History: Cardiac Ablation - Family History Family Medical History: Diabetes Mellitus, Cancer, Coronary Artery Disease - Social History Does patient currently use any type of tobacco product: No Have you used tobacco products in the last 12 months: No Type of Tobacco Use: None Does any household member use tobacco: No Alcohol Use: None Drug Use: None - Medications Home Medications: codeine Allergy (Verified 05/08/17 19:26) IVP DYE Allergy (Intermediate, Uncoded 05/08/17 19:26) CONTINUE taking the following medications [id number] 1 cap PO Q8H PRN 03/05/19 [History] carbidopa-levodopa [Sinemet] 1 tab PO TID 03/05/19 [History] dexamethasone 4 mg PO DAILY 03/05/19 [History] docusate sodium 50 mg PO HS 03/05/19 [History] escitalopram oxalate 10 mg PO DAILY 03/05/19 [History] esomeprazole magnesium [Nexium] 40 mg PO HS 03/05/19 [History] metoclopramide HCl 10 mg PO PRN PRN 03/05/19 [History] oxycodone-acetaminophen 10 - 325 tab PO Q6H PRN 03/05/19 [History] polyethylene glycol 3350 [Miralax] 17 g PO PRN PRN 03/05/19 [History] prochlorperazine maleate [Compazine] 10 mg PO Q6H PRN 03/05/19 [History] promethazine 12.5 mg PO Q8H PRN 03/05/19 [History] - Review of Systems Constitutional: Weakness Eyes: No Symptoms Reported ENT: No Symptoms Reported Respiratory: No Symptoms Reported Cardiovascular: No Symptoms Reported Gastrointestinal: No Symptoms Reported Genitourinary: No Symptoms Reported Musculoskeletal: See HPI, Other (RIGHT HIP PAIN ) Skin: No Symptoms Reported Neurological: See HPI, Weakness - Physical Exam Vital Signs: Temperature 97.9 F Pulse Rate [Left Brachial] 72 Pulse Rate 68 Respiratory Rate 18 Blood Pressure [Left Arm] 127/74 Blood Pressure [Right Arm] 151/95 Blood Pressure 119/56 O2 Sat by Pulse Oximetry 96 Oriented: Normal Eyes: Normal Ear: Normal Nose: Normal Throat: Normal Respiratory: Diminished Throughout Cardiovascular: Normal : Normal Auscultation: Bowel Sounds: Normal Palpation: Normal Tenderness: Normal Skin: Normal Musculoskeletal: Right, Hip, Tender, Motor Deficit Psychiatric: Normal Mood Description: Calm Affect: Normal Speech Pattern: Clear - Assessment/Plan (1) Right hip pain Status: Acute Plan: IV MORPHINE, IV TORADOL, PERCOCET, GABAPENTIN, CONTINUE TO MONITOR (2) Weakness generalized Status: Acute (3) Unable to ambulate Status: Acute - Allergies Allergies/Adverse Reactions: Allergies Allergy/AdvReac Type Severity Reaction Status Date / Time codeine Allergy Verified 05/08/17 19:26 IVP DYE Allergy Intermediate Uncoded 05/08/17 19:26
[2019-03-07] MEDS: HYTRIN PO SCH (20:48)
[2019-03-07] MEDS: TOPROL XL PO SCH (20:49)
[2019-03-07] MEDS: KLONOPIN TAB 1 MG PO SCH (20:49)
[2019-03-08] MEDS: TORADOL 30 MG VIAL IVP SCH ×2 (02:51→08:25)
[2019-03-08] MEDS: NEURONTIN CAP 300 MG PO SCH ×3 (05:11→22:05)
[2019-03-08] MEDS: SINEMET (PLAIN) 25/250 MG PO SCH ×3 (05:11→22:06)
[2019-03-08 06:15] LABS: BASOPHILS % (AUTO) 0.3 % (0.2-1.0); EOSINOPHILS % (AUTO) 0.1 % (0.9-2.9); HEMATOCRIT 28.5 % (42.0-54.0); HEMOGLOBIN 9.8 g/dL (13.5-18.0); LYMPHOCYTES # (AUTO) 0.5 X10^3/uL (1.3-2.9); LYMPHOCYTES % (AUTO) 7.1 % (21.0-51.0); MEAN CORPUSCULAR HEMOGLOBIN 33.9 pg (27.0-34.0); MEAN CORPUSCULAR HGB CONC 34.3 g/dL (33.0-35.0); MEAN CORPUSCULAR VOLUME 98.6 fL (80.0-100.0); MEAN PLATELET VOLUME 8.7 fL (7.4-11.0); MONOCYTES # (AUTO) 0.5 x10^3/uL (0.3-0.8); NEUTROPHILS # (AUTO) 6.6 x10^3/uL (2.2-4.8); NEUTROPHILS % (AUTO) 85.5 % (42.0-75.0); PLATELET COUNT 129 X10^3/uL (150.0-450.0); RED BLOOD COUNT 2.89 X10^6/uL (4.7-6.0); RED CELL DISTRIBUTION WIDTH 17.4 % (11.6-16.5); WHITE BLOOD COUNT 7.7 X10^3/uL (3.6-10.0)
[2019-03-08 06:32] LABS: ALBUMIN 2.7 g/dL (3.4-5.0); CALCIUM 9.1 mg/dL (8.5-10.1); CARBON DIOXIDE 25.2 mmol/L (21-32); COR CA(FOR HYPOALB) 10.1 mg/dL (8.5-10.1); CREATININE 1.69 mg/dL (0.70-1.30); TOTAL PROTEIN 6.8 g/dL (6.4-8.2)
[2019-03-08] MEDS: LEXAPRO PO SCH ×2 (08:22→11:35)
[2019-03-08] MEDS: LOVENOX INJ 40 MG SYR SC SCH (08:22)
[2019-03-08] MEDS: DECADRON TAB PO SCH ×2 (08:22→11:35)
[2019-03-08] MEDS: OXYBUTYNIN CHLORIDE ER PO SCH ×2 (08:25→11:36)
[2019-03-08] MEDS: PROTONIX INJ 40 MG VIAL IVP SCH (08:25)
[2019-03-08] MEDS: ZINC SULFATE PO SCH (08:26)
[2019-03-08] MEDS: VITAMIN D3 PO SCH ×2 (08:26→11:35)
[2019-03-08] MEDS: ZETIA TAB 10 MG PO SCH (08:26)
--- NOTE | 2019-03-08 08:43 | PCM.PROG ---
Progress Note - Progress Note for Day of Date of Exam: 03/07/19 - Subjective Subjective: WAS ADMITTED FOR RIGHT HIP PAIN AND GENERALIZED WEAKNESS. TODAY, HE IS ALERT AND ORIENTED, LYING IN BED ON MORNING ROUNDS. HE CONTINUES TO BE UNABLE TO BEAR WEIGHT ON THE RIGHT LEG FOR AMBULATION. ON EXAMINATION, HEART IS REGULAR IN RATE AND RHYTHM. BILATERAL LUNGS ARE NOTED WITH DIMINISHED LUNG SOUNDS THROUGHOUT. ABDOMEN IS ROUND, SOFT, AND NON-TENDER WITH NORMAL BOWEL SOUNDS NOTED IN ALL QUADRANTS. HIS VITALS THIS MORNING ARE: 97.9-73-20-98%-177/85. LABS WERE OBTAINED. ABNORMAL LAB VALUES INCLUDE THE FOLLOWING: RBC 2.89, HGB 9.8, HCT 28.5, PLT COUNT 129, SODIUM 135, BUN 34, C REATININE 1.69, GLUCOSE 130, ALBUMIN 2.7. BLOOD CULTURES ARE PENDING. HE IS CURRENTLY RECEIVING IV TORADOL 15MG IV Q6H CHERYL, MORPHINE 1-2MG IV Q4H PRN, LOVENOX 40MG SC DAILY, PERCOCET, IV PROTONIX, AND HOME MEDICATIONS WERE RESUMED. WE WILL CONTINUE WITH CURRENT PLAN OF CARE TODAY. OTHERWISE, WE PLAN TO FOLLOW UP WITH AM LABS AND CONTINUE TO MONITOR. - Past Medical Family Social History Past Med/Fam/Surg Hx: No changes since H&P Allergies: Allergies codeine Allergy (Verified 05/08/17 19:26) IVP DYE Allergy (Intermediate, Uncoded 05/08/17 19:26) - Review of Systems ROS: No change since H&P - Vital Signs and I&O's Vital Signs: Temperature 97.6 F Pulse Rate [Left Brachial] 66 Pulse Rate 68 Respiratory Rate 18 Blood Pressure [Left Arm] 144/70 Blood Pressure [Right Arm] 151/95 Blood Pressure 119/56 O2 Sat by Pulse Oximetry 97 Intake and Output: Intake & Output 03/05/19 03/06/19 03/07/19 03/08/19 11:59 11:59 11:59 11:59 Intake Total 410 / 410 450 / 450 1760 / 1760 Balance 410 / 410 450 / 450 1760 / 1760 - Physical Exam Oriented: Normal Eyes: Normal Ear: Normal Nose: Normal Throat: Normal Respiratory: Generalized, Diminished Cardiovascular: Normal : Normal Auscultation: Bowel Sounds: Normal Palpation: Normal Tenderness: Normal Skin: Normal Musculoskeletal: Right, Hip, Tender, Motor Deficit Psychiatric: Normal Mood Description: Calm Affect: Normal Speech Pattern: Clear - Laboratory and Diagnostics Result Diagrams: 03/08/19 05:54 03/08/19 05:54 Labs: Laboratory WBC 7.7 X10^3/uL (3.6-10.0) 03/08/19 05:54 RBC 2.89 X10^6/uL (4.7-6.0) L 03/08/19 05:54 Hgb 9.8 g/dL (13.5-18.0) L 03/08/19 05:54 Hct 28.5 % (42.0-54.0) L 03/08/19 05:54 MCV 98.6 fL (80.0-100.0) 03/08/19 05:54 MCH 33.9 pg (27.0-34.0) 03/08/19 05:54 MCHC 34.3 g/dL (33.0-35.0) 03/08/19 05:54 RDW 17.4 % (11.6-16.5) H 03/08/19 05:54 Plt Count 129 X10^3/uL (150.0-450.0) L 03/08/19 05:54 MPV 8.7 fL (7.4-11.0) 03/08/19 05:54 Neut % (Auto) 85.5 % (42.0-75.0) H 03/08/19 05:54 Lymph % (Auto) 7.1 % (21.0-51.0) L 03/08/19 05:54 [place] % (Auto) 7.0 % (0.0-13.0) 03/08/19 05:54 Eos % (Auto) 0.1 % (0.9-2.9) L 03/08/19 05:54 Baso % (Auto) 0.3 % (0.2-1.0) 03/08/19 05:54 Neut # (Auto) 6.6 x10^3/uL (2.2-4.8) H 03/08/19 05:54 Lymph # (Auto) 0.5 X10^3/uL (1.3-2.9) L 03/08/19 05:54 [place] # (Auto) 0.5 x10^3/uL (0.3-0.8) 03/08/19 05:54 Eos # (Auto) 0.0 x10^3/uL (0.0-0.2) 03/08/19 05:54 Baso # (Auto) 0.0 X10^3/uL (0.0-0.1) 03/08/19 05:54 Absolute Nucleated RBC 0.1 /100WBC 03/08/19 05:54 Sodium 135 mmol/L (136-145) L 03/08/19 05:54 Corrected Sodium 136 mmol/L (136-145) 03/08/19 05:54 Potassium 4.6 mmol/L (3.5-5.1) 03/08/19 05:54 Chloride 101 mmol/L (98-107) 03/08/19 05:54 Carbon Dioxide 25.2 mmol/L (21-32) 03/08/19 05:54 BUN 34 mg/dL (7-18) H 03/08/19 05:54 Creatinine 1.69 mg/dL (0.70-1.30) H 03/08/19 05:54 Est GFR (MDRD) Af Amer 51 (>60) L 03/08/19 05:54 Est GFR (MDRD) Non-Af 42 (>60) L 03/08/19 05:54 Glucose 130 mg/dL (65-99) H 03/08/19 05:54 Calcium 9.1 mg/dL (8.5-10.1) 03/08/19 05:54 Corrected Calcium 10.1 mg/dL (8.5-10.1) 03/08/19 05:54 Total Bilirubin 0.30 mg/dL (0.2-1.0) 03/08/19 05:54 AST 18 Units/L (15-37) 03/08/19 05:54 ALT 13 Units/L (12-78) 03/08/19 05:54 Alkaline Phosphatase 111 Units/L (46-116) 03/08/19 05:54 Total Protein 6.8 g/dL (6.4-8.2) 03/08/19 05:54 Albumin 2.7 g/dL (3.4-5.0) L 03/08/19 05:54 Globulin 4.1 g/dL (2.5-4.5) 03/08/19 05:54 Albumin/Globulin Ratio 0.7 Ratio (1.1-2.1) L 03/08/19 05:54 Specimen Type Random urine 03/05/19 13:42 Urine Color Yellow (YELLOW) 03/05/19 13:42 Urine Appearance Clear (CLEAR) 03/05/19 13:42 Urine pH 6.0 (5.0 - 8.0) 03/05/19 13:42 Ur Specific [place] 1.015 (1.000-1.030) 03/05/19 13:42 Urine Protein 1+ (NEGATIVE) 03/05/19 13:42 Urine Glucose (UA) Negative (NEGATIVE) 03/05/19 13:42 Urine Ketones Negative (NEGATIVE) 03/05/19 13:42 Urine Occult Blood Negative (NEGATIVE) 03/05/19 13:42 Urine Nitrite Negative (NEGATIVE) 03/05/19 13:42 Urine Bilirubin Negative (NEGATIVE) 03/05/19 13:42 Urine Urobilinogen Normal (NORMAL) 03/05/19 13:42 Ur Leukocyte Esterase Negative (NEGATIVE) 03/05/19 13:42 Urine RBC None seen /HPF (0-3) 03/05/19 13:42 Urine WBC None seen /HPF (0-5) 03/05/19 13:42 Ur Squamous Epith Cells Negative /HPF (NEGATIVE) 03/05/19 13:42 Urine Bacteria Negative /HPF (NEGATIVE) 03/05/19 13:42 Ur Culture Indicated? No/not indicated 03/05/19 13:42 - Plan (1) Right hip pain Status: Acute Plan: IV MORPHINE, IV TORADOL, PERCOCET, GABAPENTIN, CONTINUE TO MONITOR (2) Weakness generalized Status: Acute (3) Unable to ambulate Status: Acute
[2019-03-08] MEDS ORDERED: LEXAPRO ONE (11:14)
[2019-03-08] MEDS: NS 1000 ML 1,000 ML IV SCH (11:30)
[2019-03-08] MEDS: TORADOL 15 MG VIAL IVP SCH ×3 (11:34→22:06)
[2019-03-08] MEDS: COLACE CAP 100 MG PO PRN ×2 (11:35→22:05)
--- NOTE | 2019-03-08 12:55 | NM ---
HISTORYRT HIP PAIN, HX OF CANCER MUSCINOUS ADENOCARCINOMA, CAD, HTN, PACEMAKER, ORTHO, APPY, GB, BOWEL RESECTION, STENTS, LITHO ; 26.6 mCi MDP INJECTED @[facility]ENTERUDYBONE SCAN WHOLE BODYCOMPARISONChest x-ray 03/06/[address] pelvis 03/05/2019FINDINGSMild arthritic changes are suspected in the mid lumbar spine, knees, and shoulders. Otherwise, normal distribution of the radiotracer in the axial skeleton. Normal activity in the urinary bladder.IMPRESSIONNo evidence of osseous metastatic disease.Electronically signed by: Jani Singh (Mar 08, 2019 12:54:29)
[2019-03-08] MEDS: SYNTHROID 175 mcg TAB PO SCH (19:16)
[2019-03-08] MEDS: KLONOPIN TAB 1 MG PO SCH (22:05)
[2019-03-08] MEDS: HYTRIN PO SCH (22:06)
[2019-03-08] MEDS: TOPROL XL PO SCH (22:06)
[2019-03-08] MEDS: MORPHINE SULFATE INJ 2 MG INJ IVP PRN (23:25)
[2019-03-09] MEDS: NS 1000 ML 1,000 ML IV SCH (00:59)
[2019-03-09] MEDS: MORPHINE SULFATE INJ 2 MG INJ IVP PRN (03:59)
[2019-03-09] MEDS: SINEMET (PLAIN) 25/250 MG PO SCH (05:57)
[2019-03-09] MEDS: TORADOL 15 MG VIAL IVP SCH (05:57)
[2019-03-09] MEDS: NEURONTIN CAP 300 MG PO SCH (05:58)
[2019-03-09 06:16] LABS: BASOPHILS % (AUTO) 0.4 % (0.2-1.0); EOSINOPHILS % (AUTO) 0.2 % (0.9-2.9); HEMATOCRIT 26.3 % (42.0-54.0); HEMOGLOBIN 9.1 g/dL (13.5-18.0); LYMPHOCYTES # (AUTO) 0.6 X10^3/uL (1.3-2.9); LYMPHOCYTES % (AUTO) 7.8 % (21.0-51.0); MEAN CORPUSCULAR HEMOGLOBIN 34.3 pg (27.0-34.0); MEAN CORPUSCULAR HGB CONC 34.6 g/dL (33.0-35.0); MEAN CORPUSCULAR VOLUME 99.1 fL (80.0-100.0); MEAN PLATELET VOLUME 8.2 fL (7.4-11.0); MONOCYTES # (AUTO) 0.6 x10^3/uL (0.3-0.8); MONOCYTES % (AUTO) 7.9 % (0.0-13.0); NEUTROPHILS # (AUTO) 6.1 x10^3/uL (2.2-4.8); NEUTROPHILS % (AUTO) 83.7 % (42.0-75.0); PLATELET COUNT 130 X10^3/uL (150.0-450.0); RED BLOOD COUNT 2.65 X10^6/uL (4.7-6.0); RED CELL DISTRIBUTION WIDTH 17.1 % (11.6-16.5); WHITE BLOOD COUNT 7.3 X10^3/uL (3.6-10.0)
[2019-03-09 06:26] LABS: ALBUMIN 2.6 g/dL (3.4-5.0); CALCIUM 8.6 mg/dL (8.5-10.1); CARBON DIOXIDE 25.3 mmol/L (21-32); COR CA(FOR HYPOALB) 9.7 mg/dL (8.5-10.1); CREATININE 1.63 mg/dL (0.70-1.30); TOTAL PROTEIN 6.4 g/dL (6.4-8.2)
[2019-03-09] MEDS ORDERED: LEXAPRO ONE (07:29)
[2019-03-09] MEDS: PROTONIX INJ 40 MG VIAL IVP SCH (08:00)
[2019-03-09] MEDS: LOVENOX INJ 40 MG SYR SC SCH (08:00)
[2019-03-09] MEDS: DECADRON TAB PO SCH (08:00)
[2019-03-09] MEDS: LEXAPRO PO SCH (08:00)
[2019-03-09] MEDS: ZINC SULFATE PO SCH (08:00)
[2019-03-09] MEDS: ZETIA TAB 10 MG PO SCH (08:00)
[2019-03-09] MEDS: VITAMIN D3 PO SCH (08:00)
[2019-03-09] MEDS: OXYBUTYNIN CHLORIDE ER PO SCH (08:00)
[2019-03-09 08:57] VITALS: BP 155/79
[2019-03-09] MEDS ORDERED: M.S. CONTIN 15 MG (EXTENDED RELEASE) PO SCH (09:22)
--- NOTE | 2019-03-09 11:33 | PCM.PROG ---
Progress Note - Progress Note for Day of Date of Exam: 03/08/19 - Subjective Subjective: WAS ADMITTED FOR RIGHT HIP PAIN AND GENERALIZED WEAKNESS. HE WAS SCHEDULED FOR CHEMO TODAY, HOWEVER, HIS SPOUSE HAS RESCHEDULED THAT. TODAY, HE IS ALERT AND ORIENTED, LYING IN BED ON MORNING ROUNDS. HE REPORTS THAT HE HAS AMBULATED IN ROOM WITH ASSISTANCE . ON EXAMINATION, HEART IS REGULAR IN RATE AND RHYTHM. BILATERAL LUNGS ARE NOTED WITH DIMINISHED LUNG SOUNDS THROUGHOUT. ABDOMEN IS ROUND, SOFT, AND NON-TENDER WITH NORMAL BOWEL SOUNDS NOTED IN ALL QUADRANTS. THERE IS TENDERNESS NOTED TO BILATERAL HIPS, RIGHT WORSE THAN THE LEFT. HIS VITALS THIS MORNING ARE: 97.7-65-18-98%-129/72. LABS WERE OBTAINED. ABNORMAL LAB VALUES INCLUDE THE FOLLOWING: RBC 2.89, HGB 9.8, HCT 28.5, PLT COUNT 129, SODIUM 135, BUN 1.69, GLUOSE 150, ALBUMIN 2.6. BLOOD CULTURES ARE PENDING. HE IS CURRENTLY RECEIVING IV TORADOL 15MG IV Q6H CHERYL, MORPHINE 1-2MG IV Q4H PRN, LOVENOX 40MG SC DAILY, PERCOCET, IV PROTONIX, AND HOME MEDICATIONS WERE RESUMED. WE WILL CONTINUE WITH CURRENT PLAN OF CARE TODAY AND START NORMAL SALINE AT 75 ML/HR. HE IS SCHEDULED FOR A BONE SCAN THIS MORNING TO RULE OUT METASTATIC DISEASE. OTHERWISE, WE PLAN TO FOLLOW UP WITH AM LABS AND CONTINUE TO MONITOR. - Past Medical Family Social History Past Med/Fam/Surg Hx: No changes since H&P Allergies: Allergies codeine Allergy (Verified 05/08/17 19:26) IVP DYE Allergy (Intermediate, Uncoded 05/08/17 19:26) - Review of Systems ROS: No change since H&P - Vital Signs and I&O's Vital Signs: Temperature 97.9 F Pulse Rate [Left Brachial] 71 Pulse Rate 68 Respiratory Rate 20 Blood Pressure [Left Arm] 155/79 Blood Pressure [Right Arm] 151/95 Blood Pressure 119/56 O2 Sat by Pulse Oximetry 99 Intake and Output: Intake & Output 03/06/19 03/07/19 03/08/19 03/09/19 11:59 11:59 11:59 11:59 Intake Total 410 / 410 450 / 450 1760 / 1760 3260 / 3260 Output Total 450 / 450 Balance 410 / 410 450 / 450 1760 / 1760 2810 / 2810 - Physical Exam Oriented: Normal Eyes: Normal Ear: Normal Nose: Normal Throat: Normal Respiratory: Generalized, Diminished Cardiovascular: Normal : Normal Auscultation: Bowel Sounds: Normal Tenderness: Normal Skin: Normal Musculoskeletal: Right, Hip, Tender, Motor Deficit Psychiatric: Normal Mood Description: Calm Affect: Normal Speech Pattern: Clear, Appropriate - Laboratory and Diagnostics Result Diagrams: 03/09/19 06:00 03/09/19 06:00 Labs: 03/06/19 13:40 Blood Blood Culture - Preliminary 03/06/19 13:30 Blood Blood Culture - Preliminary Laboratory WBC 7.3 X10^3/uL (3.6-10.0) 03/09/19 06:00 RBC 2.65 X10^6/uL (4.7-6.0) L 03/09/19 06:00 Hgb 9.1 g/dL (13.5-18.0) L 03/09/19 06:00 Hct 26.3 % (42.0-54.0) L 03/09/19 06:00 MCV 99.1 fL (80.0-100.0) 03/09/19 06:00 MCH 34.3 pg (27.0-34.0) H 03/09/19 06:00 MCHC 34.6 g/dL (33.0-35.0) 03/09/19 06:00 RDW 17.1 % (11.6-16.5) H 03/09/19 06:00 Plt Count 130 X10^3/uL (150.0-450.0) L 03/09/19 06:00 MPV 8.2 fL (7.4-11.0) 03/09/19 06:00 Neut % (Auto) 83.7 % (42.0-75.0) H 03/09/19 06:00 Lymph % (Auto) 7.8 % (21.0-51.0) L 03/09/19 06:00 [place] % (Auto) 7.9 % (0.0-13.0) 03/09/19 06:00 Eos % (Auto) 0.2 % (0.9-2.9) L 03/09/19 06:00 Baso % (Auto) 0.4 % (0.2-1.0) 03/09/19 06:00 Neut # (Auto) 6.1 x10^3/uL (2.2-4.8) H 03/09/19 06:00 Lymph # (Auto) 0.6 X10^3/uL (1.3-2.9) L 03/09/19 06:00 [place] # (Auto) 0.6 x10^3/uL (0.3-0.8) 03/09/19 06:00 Eos # (Auto) 0.0 x10^3/uL (0.0-0.2) 03/09/19 06:00 Baso # (Auto) 0.0 X10^3/uL (0.0-0.1) 03/09/19 06:00 Absolute Nucleated RBC 0.0 /100WBC 03/09/19 06:00 Sodium 135 mmol/L (136-145) L 03/09/19 06:00 Corrected Sodium 135 mmol/L (136-145) L 03/09/19 06:00 Potassium 4.7 mmol/L (3.5-5.1) 03/09/19 06:00 Chloride 102 mmol/L (98-107) 03/09/19 06:00 Carbon Dioxide 25.3 mmol/L (21-32) 03/09/19 06:00 BUN 37 mg/dL (7-18) H 03/09/19 06:00 Creatinine 1.63 mg/dL (0.70-1.30) H 03/09/19 06:00 Est GFR (MDRD) Af Amer 53 (>60) L 03/09/19 06:00 Est GFR (MDRD) Non-Af 44 (>60) L 03/09/19 06:00 Glucose 114 mg/dL (65-99) H 03/09/19 06:00 Calcium 8.6 mg/dL (8.5-10.1) 03/09/19 06:00 Corrected Calcium 9.7 mg/dL (8.5-10.1) 03/09/19 06:00 Total Bilirubin 0.20 mg/dL (0.2-1.0) 03/09/19 06:00 AST 14 Units/L (15-37) L 03/09/19 06:00 ALT 11 Units/L (12-78) L 03/09/19 06:00 Alkaline Phosphatase 106 Units/L (46-116) 03/09/19 06:00 Total Protein 6.4 g/dL (6.4-8.2) 03/09/19 06:00 Albumin 2.6 g/dL (3.4-5.0) L 03/09/19 06:00 Globulin 3.8 g/dL (2.5-4.5) 03/09/19 06:00 Albumin/Globulin Ratio 0.7 Ratio (1.1-2.1) L 03/09/19 06:00 Specimen Type Random urine 03/05/19 13:42 Urine Color Yellow (YELLOW) 03/05/19 13:42 Urine Appearance Clear (CLEAR) 03/05/19 13:42 Urine pH 6.0 (5.0 - 8.0) 03/05/19 13:42 Ur Specific [place] 1.015 (1.000-1.030) 03/05/19 13:42 Urine Protein 1+ (NEGATIVE) 03/05/19 13:42 Urine Glucose (UA) Negative (NEGATIVE) 03/05/19 13:42 Urine Ketones Negative (NEGATIVE) 03/05/19 13:42 Urine Occult Blood Negative (NEGATIVE) 03/05/19 13:42 Urine Nitrite Negative (NEGATIVE) 03/05/19 13:42 Urine Bilirubin Negative (NEGATIVE) 03/05/19 13:42 Urine Urobilinogen Normal (NORMAL) 03/05/19 13:42 Ur Leukocyte Esterase Negative (NEGATIVE) 03/05/19 13:42 Urine RBC None seen /HPF (0-3) 03/05/19 13:42 Urine WBC None seen /HPF (0-5) 03/05/19 13:42 Ur Squamous Epith Cells Negative /HPF (NEGATIVE) 03/05/19 13:42 Urine Bacteria Negative /HPF (NEGATIVE) 03/05/19 13:42 Ur Culture Indicated? No/not indicated 03/05/19 13:42 - Plan (1) Right hip pain Status: Acute Plan: IV MORPHINE, IV TORADOL, PERCOCET, GABAPENTIN, CONTINUE TO MONITOR (2) Weakness generalized Status: Acute (3) Unable to ambulate Status: Acute
[2019-03-10 06:25] LABS: TESTOSTERONE FREE < 1 pg/mL (47-244)
== END 2019-03-09 11:25 | disposition home health service (06) | DRG 556 ==
LOC: ER 12:38 → MED/SURG 12:38
PROVIDERS: ADMIT Internal Medicine; ATTEND Internal Medicine
CPT/HCPCS: 36415; 71010; 71045; 72192; 78306; 80053; 81001; 82533; 82670; 84270; 84402; 84403; 85025; 87040; 96365; 96367; 97116; 97162; 99284; A4222; A9503; C9113; G0378; J1650; J1720; J1885; J2270; J7030; J8540

== ENCOUNTER 2019-03-14 18:02 | Inpatient (IN) ==
[2019-03-14 18:09] VITALS: BMI 31.5
--- NOTE | 2019-03-14 18:22 | DR.EXTPAIN ---
HPI Time seen Time Seen by Provider: 03/14/19 18:19 PCP Primary Care Physician: charlotte Complaint/Symptoms Chief Complaint:: pt stated he has been unable to walk for awhile and has been hurting in his right hip. family stated he has been AMS spells for 2 days and today has been worse. Source History Provided: Patient and Family Member Mode of arrival Mode of Arrival: Wheelchair Timing Onset of Chief Complaint: 03/11/19 PMH PMH Past Medical History: Yes Past Medical History: Coronary Artery Disease, Headaches and Hypertension Past Surgical History: Yes Surgical History: Angioplasty/Stents, Appendectomy, Bowel Resection, Cholecystectomy, Ortho Surgery, Lithotripsy and Other Family History History of Family Medical Conditions: Yes Family Medical History: Diabetes Mellitus, Cancer and Coronary Artery Disease Social History Does patient currently use any type of tobacco product: No Have you used tobacco products in the last 12 months: No Type of Tobacco Use: None Does any household member use tobacco: No Alcohol Use: None Do you use any recreational Drugs:: No Lives With: Family Lives Where: Home infectious screening In the last 2 months have you had wt loss of >10#?: NO Have you had fever, night sweats or hemotysis?: No Have you traveled outside the country in the last 6 months?: No Isolation: Standard ROS Review of Systems Constitutional: No Symptoms Reported and See HPI Eyes: No Symptoms Reported and See HPI ENTM: No Symptoms Reported and See HPI Respiratoy: No Symptoms Reported and See HPI Cardiovascular: No Symptoms Reported and See HPI Gastrointestinal/Abdominal: No Symptoms Reported and See HPI Genitourinary: No Symptoms Reported and See HPI Neurological: No Symptoms Reported and See HPI Musculoskeletal: No Symptoms Reported and See HPI Integumentary: No Symptoms Reported and See HPI Hematologic/Lymphatic: No Symptoms Reported and See HPI Endocrine: No Symptoms Reported and See HPI Psychiatric: No Symptoms Reported and See HPI All Other Systems: Reviewed and Negative PE Vital Signs Vitals: Temperature 98.2 F Pulse Rate [Left] 84 Pulse Rate 91 Respiratory Rate 20 Blood Pressure [Left Arm] 146/65 Blood Pressure 126/75 O2 Sat by Pulse Oximetry 96 General Limitations: No Limitations General Appearance: Alert and In No Apparent Distress Head Head Exam: Normal Inspection Eyes Eye exam: Normal Appearance ENT ENT Exam: Normal Exam Neck Neck Exam: Normal Inspection Chest Chest Inspection: Normal Inspection Respiratory Respiratory Exam: Normal Lung Sounds Bilat Cardiovascular Cardiovascular Exam: Regular Rate and Normal Rhythm Abdominal Exam Abdominal Exam: Normal Inspection, Normal Bowel Sounds and Soft Extremities Extremities Exam: Normal Inspection Back Back Exam: Normal Inspection Neurological Neurological Exam: Alert, Oriented X3 and CN II-XII Intact Psychiatric Psychiatric Exam: Normal Affect and Normal Mood Skin Skin Exam: Warm, Dry, Intact and Normal Color ROR Labs Reviewed Result Diagrams: 03/19/19 05:15 03/19/19 05:15 Laboratory: WBC 5.6 X10^3/uL (3.6-10.0) 03/16/19 05:20 RBC 2.85 X10^6/uL (4.7-6.0) L 03/16/19 05:20 Hgb 9.7 g/dL (13.5-18.0) L 03/16/19 05:20 Hct 27.9 % (42.0-54.0) L 03/16/19 05:20 MCV 97.7 fL (80.0-100.0) 03/16/19 05:20 MCH 34.0 pg (27.0-34.0) 03/16/19 05:20 MCHC 34.8 g/dL (33.0-35.0) 03/16/19 05:20 RDW 17.0 % (11.6-16.5) H 03/16/19 05:20 Plt Count 179 X10^3/uL (150.0-450.0) 03/16/19 05:20 MPV 8.1 fL (7.4-11.0) 03/16/19 05:20 Neut % (Auto) 82.3 % (42.0-75.0) H 03/16/19 05:20 Lymph % (Auto) 8.4 % (21.0-51.0) L 03/16/19 05:20 [place] % (Auto) 9.1 % (0.0-13.0) 03/16/19 05:20 Eos % (Auto) 0.0 % (0.9-2.9) L 03/16/19 05:20 Baso % (Auto) 0.2 % (0.2-1.0) 03/16/19 05:20 Neut # (Auto) 4.6 x10^3/uL (2.2-4.8) 03/16/19 05:20 Lymph # (Auto) 0.5 X10^3/uL (1.3-2.9) L 03/16/19 05:20 [place] # (Auto) 0.5 x10^3/uL (0.3-0.8) 03/16/19 05:20 Eos # (Auto) 0.0 x10^3/uL (0.0-0.2) 03/16/19 05:20 Baso # (Auto) 0.0 X10^3/uL (0.0-0.1) 03/16/19 05:20 Absolute Nucleated RBC 0.1 /100WBC 03/16/19 05:20 PT 13.1 SECONDS (11.8-14.3) 03/15/19 04:38 INR Target Range - 03/15/19 04:38 INR 1.03 (0.8-1.3) 03/15/19 04:38 APTT 32.9 SECONDS (22.9-36.5) 03/14/19 23:59 PTT Comment - 03/14/19 23:59 Sodium 137 mmol/L (136-145) 03/16/19 05:20 Corrected Sodium 137 mmol/L (136-145) 03/16/19 05:20 Potassium 3.9 mmol/L (3.5-5.1) 03/16/19 05:20 Chloride 100 mmol/L (98-107) 03/16/19 05:20 Carbon Dioxide 28.4 mmol/L (21-32) 03/16/19 05:20 BUN 19 mg/dL (7-18) H 03/16/19 05:20 Creatinine 1.37 mg/dL (0.70-1.30) H 03/16/19 05:20 Est GFR (MDRD) Af Amer > 60 (>60) 03/16/19 05:20 Est GFR (MDRD) Non-Af 53 (>60) L 03/16/19 05:20 Glucose 120 mg/dL (65-99) H 03/16/19 05:20 Calcium 9.0 mg/dL (8.5-10.1) 03/16/19 05:20 Corrected Calcium 9.8 mg/dL (8.5-10.1) 03/16/19 05:20 Magnesium 1.8 mg/dL (1.7-2.9) 03/15/19 04:38 Total Bilirubin 0.30 mg/dL (0.2-1.0) 03/16/19 05:20 AST 24 Units/L (15-37) 03/16/19 05:20 ALT 14 Units/L (12-78) 03/16/19 05:20 Alkaline Phosphatase 124 Units/L (46-116) H 03/16/19 05:20 Creatine Kinase 24 Units/L (39-308) L 03/15/19 04:38 CK-MB (CK-2) < 1.0 ng/mL (0-4.0) 03/15/19 04:38 CK/CKMB % Calc 4.2 % (<4) 03/15/19 04:38 Troponin I < 0.02 ng/mL (0-1.5) 03/15/19 04:38 Total Protein 6.9 g/dL (6.4-8.2) 03/16/19 05:20 Albumin 3.0 g/dL (3.4-5.0) L 03/16/19 05:20 Globulin 3.9 g/dL (2.5-4.5) 03/16/19 05:20 Albumin/Globulin Ratio 0.8 Ratio (1.1-2.1) L 03/16/19 05:20 Triglycerides 96 mg/dL (0-150) 03/15/19 04:38 Cholesterol 151 mg/dL (0-200) 03/15/19 04:38 LDL Cholesterol, Calc 87 mg/dL (0-100) 03/15/19 04:38 HDL Cholesterol 45 mg/dL (40-60) 03/15/19 04:38 Cholesterol/HDL Ratio 3.4 (0.0-5.0) 03/15/19 04:38 Specimen Type Clean catch urine 03/15/19 04:54 Urine Color Yellow (YELLOW) 03/15/19 04:54 Urine Appearance Clear (CLEAR) 03/15/19 04:54 Urine pH 6.5 (5.0 - 8.0) 03/15/19 04:54 Ur Specific [place] 1.010 (1.000-1.030) 03/15/19 04:54 Urine Protein 1+ (NEGATIVE) 03/15/19 04:54 Urine Glucose (UA) Negative (NEGATIVE) 03/15/19 04:54 Urine Ketones Negative (NEGATIVE) 03/15/19 04:54 Urine Occult Blood Negative (NEGATIVE) 03/15/19 04:54 Urine Nitrite Negative (NEGATIVE) 03/15/19 04:54 Urine Bilirubin Negative (NEGATIVE) 03/15/19 04:54 Urine Urobilinogen Normal (NORMAL) 03/15/19 04:54 Ur Leukocyte Esterase Negative (NEGATIVE) 03/15/19 04:54 Urine RBC None seen /HPF (0-3) 03/15/19 04:54 Urine WBC None seen /HPF (0-5) 03/15/19 04:54 Ur Squamous Epith Cells Rare /HPF (NEGATIVE) 03/15/19 04:54 Urine Bacteria Negative /HPF (NEGATIVE) 03/15/19 04:54 Ur Culture Indicated? No/not indicated 03/15/19 04:54 Opioid Opioid Risk Tool Age ([place] box if 16-45): No Total: 0 Total Score Risk Category: Low Risk Copyright: Patrice MAGAÑA predicting aberrant behaviors
[2019-03-14 18:42] LABS: BASOPHILS % (AUTO) 0.6 % (0.2-1.0); EOSINOPHILS # (AUTO) 0.3 x10^3/uL (0.0-0.2); EOSINOPHILS % (AUTO) 4.9 % (0.9-2.9); HEMATOCRIT 31.1 % (42.0-54.0); HEMOGLOBIN 10.6 g/dL (13.5-18.0); LYMPHOCYTES # (AUTO) 0.8 X10^3/uL (1.3-2.9); LYMPHOCYTES % (AUTO) 15.4 % (21.0-51.0); MEAN CORPUSCULAR HEMOGLOBIN 34.4 pg (27.0-34.0); MEAN CORPUSCULAR HGB CONC 34.1 g/dL (33.0-35.0); MEAN PLATELET VOLUME 8.1 fL (7.4-11.0); MONOCYTES # (AUTO) 0.6 x10^3/uL (0.3-0.8); MONOCYTES % (AUTO) 10.7 % (0.0-13.0); NEUTROPHILS # (AUTO) 3.7 x10^3/uL (2.2-4.8); NEUTROPHILS % (AUTO) 68.4 % (42.0-75.0); PLATELET COUNT 171 X10^3/uL (150.0-450.0); RED BLOOD COUNT 3.08 X10^6/uL (4.7-6.0); RED CELL DISTRIBUTION WIDTH 17.8 % (11.6-16.5); WHITE BLOOD COUNT 5.4 X10^3/uL (3.6-10.0)
[2019-03-14 18:59] LABS: BLOOD UREA NITROGEN 24 mg/dL (7-18); CALCIUM 9.2 mg/dL (8.5-10.1); CARBON DIOXIDE 29.7 mmol/L (21-32); CHLORIDE 100 mmol/L (98-107); COR NA(FOR HYPERGLY) 136 mmol/L (136-145); SODIUM 135 mmol/L (136-145); TROPONIN I < 0.02 ng/mL (0-1.5); eGFR NON BLACK RACES 42 (>60)
[2019-03-14 19:03] LABS: ALANINE AMINOTRANSFERASE 12 Units/L (12-78); ALBUMIN 2.9 g/dL (3.4-5.0); ALKALINE PHOSPHATASE 143 Units/L (46-116); ASPARTATE AMINO TRANSFERASE 22 Units/L (15-37); CKMB % 3.5 % (<4); COR CA(FOR HYPOALB) 10.1 mg/dL (8.5-10.1); CREATINE KINASE 29 Units/L (39-308); CREATINE KINASE MB < 1.0 ng/mL (0-4.0)
--- NOTE | 2019-03-14 19:20 | CT ---
BRAIN W/O CONHistory: AMSTechnique: CT images of the brain were obtained without contrast. Reformatted images in the coronal and sagittal planes also generated for review. Automatic exposure was utilized.Comparison: 06/15/2017Findings: There is age-appropriate generalized cerebral atrophy with commensurate ventricular and sulcal enlargement. Patchy areas of periventricular and subcortical white matter hypoattenuation appear unchanged since prior and are likely on the basis of chronic microvascular ischemic disease. Burrell-white differentiation is maintained. No visible acute infarction is identified. There is no intracranial hemorrhage, extra-axial collection, hydrocephalus or mass. Visualized paranasal sinuses and mastoid air cells are clear. Imaged extracranial structures are grossly unremarkable.Impression:No acute intracranial abnormalityStable age related atrophy and chronic microangiopathy.Electronically signed by: GILMA BROWN (Mar 14, 2019 19:19:42)
--- NOTE | 2019-03-14 19:23 | RAD ---
CHEST, 1 VIEWHistory: SOBComparison: 03/06/2019Findings: Accounting for AP technique, the cardiac silhouette is mildly enlarged without congestive failure. Previous CABG and left-sided pacemaker noted. Apart from mild bibasilar atelectasis, the lungs are clear without focal consolidation. No significant pleural effusion is identified. Right IJ CVL terminates over the cavoatrial junction without pneumothorax.Impression: Mild cardiomegaly without CHF or additional acute chest process.Electronically signed by: GILMA BROWN (Mar 14, 2019 19:22:36)
[2019-03-14] MEDS ORDERED: PERCOCET TAB 5/325 MG PO ONE (19:47)
[2019-03-14] MEDS ORDERED: PERCOCET TAB 5/325 MG ONE ×2 (19:53)
[2019-03-15 00:30] LABS: CKMB % 3.6 % (<4); CREATINE KINASE 28 Units/L (39-308); CREATINE KINASE MB < 1.0 ng/mL (0-4.0); TROPONIN I < 0.02 ng/mL (0-1.5)
[2019-03-15] MEDS ORDERED: ROCEPHIN VIAL 1 GRAM ONE (01:14)
[2019-03-15] MEDS ORDERED: NS 100 ML IV + SPIKE MINIBAG* 100 ML IV ONE (01:15)
[2019-03-15] MEDS: NS 1000 ML 1,000 ML IV SCH ×3 (01:51→18:17)
[2019-03-15] MEDS: ROCEPHIN VIAL 1 GRAM 1 G in NS 100 ML IV + SPIKE MINIBAG* 100 ML IV SCH (01:51)
[2019-03-15 05:17] LABS: BASOPHILS % (AUTO) 0.7 % (0.2-1.0); EOSINOPHILS # (AUTO) 0.2 x10^3/uL (0.0-0.2); EOSINOPHILS % (AUTO) 5.2 % (0.9-2.9); HEMATOCRIT 28.1 % (42.0-54.0); HEMOGLOBIN 9.6 g/dL (13.5-18.0); LYMPHOCYTES # (AUTO) 0.7 X10^3/uL (1.3-2.9); LYMPHOCYTES % (AUTO) 16.2 % (21.0-51.0); MEAN CORPUSCULAR HEMOGLOBIN 34.2 pg (27.0-34.0); MEAN CORPUSCULAR HGB CONC 34.2 g/dL (33.0-35.0); MEAN CORPUSCULAR VOLUME 100.2 fL (80.0-100.0); MEAN PLATELET VOLUME 8.3 fL (7.4-11.0); MONOCYTES # (AUTO) 0.6 x10^3/uL (0.3-0.8); MONOCYTES % (AUTO) 14.2 % (0.0-13.0); NEUTROPHILS # (AUTO) 2.9 x10^3/uL (2.2-4.8); NEUTROPHILS % (AUTO) 63.7 % (42.0-75.0); PLATELET COUNT 151 X10^3/uL (150.0-450.0); RED BLOOD COUNT 2.81 X10^6/uL (4.7-6.0); RED CELL DISTRIBUTION WIDTH 17.3 % (11.6-16.5); WHITE BLOOD COUNT 4.5 X10^3/uL (3.6-10.0)
[2019-03-15 05:18] LABS: BILIRUBIN,URINE NEGATIVE (NEGATIVE); BLOOD/HEMOGLOBIN,URINE NEGATIVE (NEGATIVE); GLUCOSE, URINE NEGATIVE (NEGATIVE); KETONES,URINE NEGATIVE (NEGATIVE); LEUKOCYTE ESTERASE ,URINE NEGATIVE (NEGATIVE); NITRITES,URINE NEGATIVE (NEGATIVE); PH,URINE 6.5 (5.0 - 8.0); PROTEIN,URINE 1+ (NEGATIVE); UROBILINOGEN,URINE NORMAL (NORMAL)
[2019-03-15 05:26] LABS: APPEARANCE,URINE CLEAR (CLEAR); BACTERIA,URINE NEGATIVE /HPF (NEGATIVE); COLOR,URINE YELLOW (YELLOW); RBC,URINE NONE SEEN /HPF (0-3); SQUAMOUS EPITHELIAL CELL,UR RARE /HPF (NEGATIVE)
[2019-03-15 05:39] LABS: ALANINE AMINOTRANSFERASE 8 Units/L (12-78); ALBUMIN 2.6 g/dL (3.4-5.0); ALKALINE PHOSPHATASE 137 Units/L (46-116); ASPARTATE AMINO TRANSFERASE 18 Units/L (15-37); BLOOD UREA NITROGEN 22 mg/dL (7-18); CALCIUM 8.7 mg/dL (8.5-10.1); CARBON DIOXIDE 30.8 mmol/L (21-32); CHLORIDE 102 mmol/L (98-107); CHOL/HDL RATIO 3.4 (0.0-5.0); CHOLESTEROL 151 mg/dL (0-200); CKMB % 4.2 % (<4); COR CA(FOR HYPOALB) 9.8 mg/dL (8.5-10.1); COR NA(FOR HYPERGLY) 139 mmol/L (136-145); CREATINE KINASE 24 Units/L (39-308); CREATINE KINASE MB < 1.0 ng/mL (0-4.0); CREATININE 1.52 mg/dL (0.70-1.30); HDL CHOLESTEROL 45 mg/dL (40-60); MAGNESIUM 1.8 mg/dL (1.7-2.9); SODIUM 139 mmol/L (136-145); TOTAL PROTEIN 6.4 g/dL (6.4-8.2); TRIGLYCERIDES 96 mg/dL (0-150); TROPONIN I < 0.02 ng/mL (0-1.5); eGFR NON BLACK RACES 47 (>60)
[2019-03-15] MEDS ORDERED: REGLAN TAB 10 MG PO PRN (10:15)
[2019-03-15] MEDS ORDERED: TRAMADOL ACETAMINOPHEN PO PRN (10:15)
[2019-03-15] MEDS ORDERED: ZOFRAN TAB 4 MG PO PRN (10:15)
[2019-03-15] MEDS ORDERED: COMPAZINE PO PRN (10:15)
[2019-03-15] MEDS ORDERED: PHENERGAN TAB 25 MG PO PRN (10:15)
[2019-03-15] MEDS ORDERED: LEXAPRO ONE (10:47)
[2019-03-15] MEDS ORDERED: MIRALAX POWDER (255 GRAMS BTL) PO NR (11:00)
[2019-03-15] MEDS: ALBUMIN HUMAN 25%- 100 ML 100 ML IV SCH (11:06)
[2019-03-15] MEDS: SYNTHROID 175 mcg TAB PO SCH (11:07)
[2019-03-15] MEDS: DECADRON TAB PO SCH (11:08)
[2019-03-15] MEDS: ASPIRIN EC 81 MG PO SCH (11:08)
[2019-03-15] MEDS: ZETIA TAB 10 MG PO SCH (11:08)
[2019-03-15] MEDS: LOVENOX INJ 40 MG SYR SC SCH (11:09)
[2019-03-15] MEDS: LASIX IVP SCH ×2 (11:09→21:05)
[2019-03-15] MEDS: LEXAPRO PO SCH (11:09)
[2019-03-15] MEDS: FIORICET TAB PO PRN (12:00)
--- NOTE | 2019-03-15 12:12 | VAS ---
HISTORY: [Extremity pain, swelling, and edema]Study: Bilateral lower extremity Doppler venous ultrasound.TECHNIQUE: Multiple hardin scale and color flow Doppler images of the deep venous system were obtained of the [right and left] lower extremity.FINDINGS: The deep venous system of the [right and left lower extremities were] evaluated from the level of the common femoral veins through the popliteal veins, bilaterally. Normal color flow and augmentation can be observed. In addition, normal compression is seen throughout the deep venous system. [No Zaragoza's cyst is seen].IMPRESSION:1. [Negative examination for DVT].Electronically signed by: ALEX JIMENEZ III (Mar 15, 2019 12:10:39)
[2019-03-15] MEDS: MILK OF MAGNESIA PO SCH ×4 (13:02→21:06)
[2019-03-15] MEDS: COLACE CAP 100 MG PO SCH ×2 (14:12→21:05)
[2019-03-15] MEDS: NEURONTIN CAP 300 MG PO SCH ×2 (14:12→21:05)
[2019-03-15] MEDS: SINEMET (PLAIN) 25/250 MG PO SCH ×2 (14:13→21:05)
[2019-03-15] MEDS ORDERED: BUTT CREAM (COMPOUND) TOP PRN (16:23)
[2019-03-15] MEDS: PERCOCET TAB 5/325 MG PO PRN (19:13)
[2019-03-15] MEDS: HYTRIN PO SCH (21:05)
[2019-03-15] MEDS: NexIUM PO SCH (21:05)
[2019-03-15] MEDS: TOPROL XL PO SCH (21:05)
--- NOTE | 2019-03-15 21:36 | DR.UPDATE ---
H&P Update History and Physical Update: History and Physical reviewed and patient examined. Changes noted: Yes with the following: WAS RELEASED HOME FROM THE HOSPITAL LAST WEEK AFTER TREATMENT FOR INTRACTABLE HIP PAIN. HE RETURNED TO THE HOSPITAL TODAY WITH REPORTS OF WEAKNESS AND BEING UNABLE TO WALK OR BEAR WEIGHT DUE TO RIGHT HIP PAIN. HE ALSO REPORTS BILATERAL LOWER EXTREMITY SWELLING. PATIENTS FAMILY REPORTS THAT HE HAS BEEN CONFUSED FOR THE PAST TWO DAYS. HE HAS A HISTORY OF PANCREATIC CANCER. ON ARRIVAL, VITALS WERE 98.6-91-16-126/75. LABS WERE OBTAINED. ABNORMAL LAB VALUES INCLUDE THE FOLLOWING: RBC 3.08, HGB 10.6, HCT 31.1, SODIUM 135, BUN 24, CREATININE 1.70, GLUCOSE 154, ALK PHOS 143, CREATINE KINASE 29, ALBUMIN 2.9. A BRAIN CT WAS OBTAINED AND REVEALED: No acute intracranial abnormality. Stable age related atrophy and chronic microangiopathy. A CHEST XRAY WAS OBTAINED AND REVEALED: Mild cardiomegaly without CHF or additional acute chest process. AN EKG WAS OBTAINED AND REVEALED: SINUS RHYTHM WITH HR 77. HE WAS GIVEN PERCOCET 5/325 MG 2 TABLETS IN THE ER. HE WAS ADMITTED FOR FURTHER EVALUATION AND TREATMENT OF GENERALIZED WEAKNESS, INTRACTABLE HIP PAIN, DEHYDRATION, AND ALTERED MENTAL STATUS. TODAY, WE WILL OBTAIN A BILATERAL LOWER EXTREMITY VENOUS DOPPLER AND START ALBUMIN 25% IV DAILY , LOVENOX, LASIX 20MG IV Q12H, AND A BOWEL REGIMEN. OTHERWISE, WE WILL FOLLOW UP WITH AM LABS AND CONTINUE TO MONITOR. Prescription drug monitoring program results: PDMP reviewed and no concerns identified H&P Reviewed: Yes Patient was examined?: Yes
[2019-03-16] MEDS: ROCEPHIN VIAL 1 GRAM 1 G in NS 100 ML IV + SPIKE MINIBAG* 100 ML IV SCH ×2 (00:07→21:00)
[2019-03-16] MEDS: NS 1000 ML 1,000 ML IV SCH ×3 (05:36→23:15)
[2019-03-16] MEDS: NEURONTIN CAP 300 MG PO SCH ×3 (05:36→22:00)
[2019-03-16] MEDS: SINEMET (PLAIN) 25/250 MG PO SCH ×3 (05:36→22:00)
[2019-03-16 06:45] LABS: BASOPHILS % (AUTO) 0.2 % (0.2-1.0); HEMATOCRIT 27.9 % (42.0-54.0); HEMOGLOBIN 9.7 g/dL (13.5-18.0); LYMPHOCYTES # (AUTO) 0.5 X10^3/uL (1.3-2.9); LYMPHOCYTES % (AUTO) 8.4 % (21.0-51.0); MEAN CORPUSCULAR HGB CONC 34.8 g/dL (33.0-35.0); MEAN CORPUSCULAR VOLUME 97.7 fL (80.0-100.0); MEAN PLATELET VOLUME 8.1 fL (7.4-11.0); MONOCYTES # (AUTO) 0.5 x10^3/uL (0.3-0.8); MONOCYTES % (AUTO) 9.1 % (0.0-13.0); NEUTROPHILS # (AUTO) 4.6 x10^3/uL (2.2-4.8); NEUTROPHILS % (AUTO) 82.3 % (42.0-75.0); PLATELET COUNT 179 X10^3/uL (150.0-450.0); RED BLOOD COUNT 2.85 X10^6/uL (4.7-6.0); WHITE BLOOD COUNT 5.6 X10^3/uL (3.6-10.0)
[2019-03-16 06:52] LABS: ALANINE AMINOTRANSFERASE 14 Units/L (12-78); ALKALINE PHOSPHATASE 124 Units/L (46-116); ASPARTATE AMINO TRANSFERASE 24 Units/L (15-37); BLOOD UREA NITROGEN 19 mg/dL (7-18); CARBON DIOXIDE 28.4 mmol/L (21-32); CHLORIDE 100 mmol/L (98-107); COR CA(FOR HYPOALB) 9.8 mg/dL (8.5-10.1); COR NA(FOR HYPERGLY) 137 mmol/L (136-145); CREATININE 1.37 mg/dL (0.70-1.30); SODIUM 137 mmol/L (136-145); TOTAL PROTEIN 6.9 g/dL (6.4-8.2); eGFR NON BLACK RACES 53 (>60)
[2019-03-16] MEDS: FIORICET TAB PO PRN (07:20)
[2019-03-16] MEDS ORDERED: LEXAPRO ONE (08:45)
[2019-03-16] MEDS: ZETIA TAB 10 MG PO SCH (09:00)
[2019-03-16] MEDS: SYNTHROID 175 mcg TAB PO SCH (09:00)
[2019-03-16] MEDS: ZINC SULFATE PO SCH (09:00)
[2019-03-16] MEDS: DECADRON TAB PO SCH (09:00)
[2019-03-16] MEDS: ALBUMIN HUMAN 25%- 100 ML 100 ML IV SCH (09:00)
[2019-03-16] MEDS: COLACE CAP 100 MG PO SCH ×2 (09:00→21:00)
[2019-03-16] MEDS: MILK OF MAGNESIA PO SCH ×2 (09:00→13:34)
[2019-03-16] MEDS: LASIX IVP SCH ×2 (09:00→21:00)
[2019-03-16] MEDS: LEXAPRO PO SCH (09:00)
[2019-03-16] MEDS: VITAMIN D3 PO SCH (09:00)
[2019-03-16] MEDS: ASPIRIN EC 81 MG PO SCH (09:00)
[2019-03-16] MEDS: LOVENOX INJ 40 MG SYR SC SCH (09:00)
[2019-03-16] MEDS: PERCOCET TAB 5/325 MG PO PRN (13:50)
[2019-03-16] MEDS ORDERED: MILK OF MAGNESIA PO PRN (16:11)
[2019-03-16] MEDS: NexIUM PO SCH (21:00)
[2019-03-16] MEDS: TOPROL XL PO SCH (21:00)
[2019-03-16] MEDS: HYTRIN PO SCH (21:00)
[2019-03-17] MEDS: NS 1000 ML 1,000 ML IV SCH ×3 (04:48→16:47)
[2019-03-17] MEDS: NEURONTIN CAP 300 MG PO SCH ×3 (05:15→21:54)
[2019-03-17] MEDS: SINEMET (PLAIN) 25/250 MG PO SCH ×3 (05:15→21:54)
[2019-03-17 06:39] LABS: BASOPHILS % (AUTO) 0.6 % (0.2-1.0); EOSINOPHILS # (AUTO) 0.1 x10^3/uL (0.0-0.2); EOSINOPHILS % (AUTO) 1.9 % (0.9-2.9); HEMATOCRIT 28.1 % (42.0-54.0); HEMOGLOBIN 9.8 g/dL (13.5-18.0); LYMPHOCYTES # (AUTO) 0.8 X10^3/uL (1.3-2.9); LYMPHOCYTES % (AUTO) 13.4 % (21.0-51.0); MEAN CORPUSCULAR HEMOGLOBIN 34.3 pg (27.0-34.0); MEAN CORPUSCULAR HGB CONC 34.9 g/dL (33.0-35.0); MEAN CORPUSCULAR VOLUME 98.4 fL (80.0-100.0); MEAN PLATELET VOLUME 7.8 fL (7.4-11.0); MONOCYTES # (AUTO) 0.9 x10^3/uL (0.3-0.8); MONOCYTES % (AUTO) 14.8 % (0.0-13.0); NEUTROPHILS # (AUTO) 4.3 x10^3/uL (2.2-4.8); NEUTROPHILS % (AUTO) 69.3 % (42.0-75.0); PLATELET COUNT 194 X10^3/uL (150.0-450.0); RED BLOOD COUNT 2.85 X10^6/uL (4.7-6.0); RED CELL DISTRIBUTION WIDTH 17.2 % (11.6-16.5); WHITE BLOOD COUNT 6.3 X10^3/uL (3.6-10.0)
[2019-03-17 07:00] LABS: ALANINE AMINOTRANSFERASE 16 Units/L (12-78); ALBUMIN 3.3 g/dL (3.4-5.0); ALKALINE PHOSPHATASE 120 Units/L (46-116); ASPARTATE AMINO TRANSFERASE 18 Units/L (15-37); BLOOD UREA NITROGEN 22 mg/dL (7-18); CALCIUM 9.4 mg/dL (8.5-10.1); CARBON DIOXIDE 30.8 mmol/L (21-32); CHLORIDE 102 mmol/L (98-107); CREATININE 1.44 mg/dL (0.70-1.30); SODIUM 140 mmol/L (136-145); TOTAL PROTEIN 7.3 g/dL (6.4-8.2); eGFR NON BLACK RACES 50 (>60)
[2019-03-17] MEDS ORDERED: LEXAPRO ONE (08:12)
[2019-03-17] MEDS: ALBUMIN HUMAN 25%- 100 ML 100 ML IV SCH (08:28)
[2019-03-17] MEDS: LOVENOX INJ 40 MG SYR SC SCH (08:30)
[2019-03-17] MEDS: DECADRON TAB PO SCH (08:31)
[2019-03-17] MEDS: COLACE CAP 100 MG PO SCH ×2 (08:31→21:53)
[2019-03-17] MEDS: LASIX IVP SCH ×2 (08:31→21:54)
[2019-03-17] MEDS: SYNTHROID 175 mcg TAB PO SCH (08:32)
[2019-03-17] MEDS: ZETIA TAB 10 MG PO SCH (08:33)
[2019-03-17] MEDS: ZINC SULFATE PO SCH (08:33)
[2019-03-17] MEDS: LEXAPRO PO SCH (08:34)
[2019-03-17] MEDS: ASPIRIN EC 81 MG PO SCH (08:34)
[2019-03-17] MEDS: VITAMIN D3 PO SCH (08:34)
--- NOTE | 2019-03-17 11:13 | PCM.PROG ---
Progress Note - Progress Note for Day of Date of Exam: 03/16/19 - Subjective Subjective: WAS ADMITTED FOR DEHYDRATION, GENERALIZED WEAKNESS, AND INTRACTABLE HIP PAIN. 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 TODAY, HE IS ALERT AND ORIENTED, LYING IN BED ON MORNING ROUNDS. SPOUSE REPORTS THAT HE WAS CONFUSED AT TIMES THROUGHOUT THE NIGHT. HE C ONTINUES TO BE UNABLE TO AMBULATE WITHOUT ASSISTANCE. HE REPORTS A COUGH AND MILD SHORTNESS OF BREATH THIS MORNING. ON EXAMINATION, HEART IS REGULAR IN RATE AND RHYTHM. BILATERAL LUNGS ARE NOTED WITH DIMINISHED LUNG SOUNDS THROUGHOUT. ABDOMEN IS ROUND, SOFT, AND NON-TENDER WITH NORMAL BOWEL SOUNDS NOTED IN ALL QUADRANTS. HIS VITALS THIS MORNING ARE: 98.2-84-20-96%-146/65. LABS WERE OBTAINED. ABNORMAL LAB VALUES INCLUDE THE FOLLOWING: RBC 2.85, HGB 9.7, HCT 27.9, BUN 19, CREATININE 1.37, GLUCOSE 120, ALK PHOS 124, ALBUMIN 3.0. VENOUS DOPPLER WAS OBTAINED YESTERDAY AND IS NEGATIVE. HE IS CURRENTLY RECEIVING NORMAL SALINE AT 75 ML/HR, LASIX 20MG IV BID, AND HIS HOME MEDICATIONS WERE RESUMED. TO DAY, WE WILL START ROCEPHIN 1G IV DAILY FOR DEVELOPING BRONCHITIS. PHYSICAL THERAPY WILL ASSIST PATIENT TODAY. OTHERWISE, WE WILL FOLLOW UP WITH AM LABS AND CONTINUE TO MONITOR. - Past Medical Family Social History Past Med/Fam/Surg Hx: No changes since H&P Allergies: Allergies codeine Allergy (Verified 03/14/19 18:02) IVP DYE Allergy (Intermediate, Uncoded 03/14/19 18:02) - Review of Systems ROS: No change since H&P - Vital Signs and I&O's Vital Signs: Temperature 97.8 F Pulse Rate [Left] 64 Pulse Rate 91 Respiratory Rate 16 Blood Pressure [Left Arm] 137/71 Blood Pressure 126/75 O2 Sat by Pulse Oximetry 96 Intake and Output: Intake & Output 03/14/19 03/15/19 03/16/19 03/17/19 11:59 11:59 11:59 11:59 Intake Total 120 / 120 2230 / 2230 1390 / 1390 Output Total 500 / 500 Balance 120 / 120 1730 / 1730 1390 / 1390 - Physical Exam Oriented: Normal Eyes: Normal Ear: Normal Nose: Normal Throat: Normal Respiratory: Generalized, Diminished Cardiovascular: Normal : Normal Auscultation: Bowel Sounds: Normal Palpation: Normal Tenderness: Normal Skin: Decreased [place] Musculoskeletal: Motor Deficit Psychiatric: Normal Mood Description: Calm Affect: Normal Speech Pattern: Clear, Appropriate - Laboratory and Diagnostics Result Diagrams: 03/17/19 06:00 03/17/19 06:00 Labs: Laboratory WBC 6.3 X10^3/uL (3.6-10.0) 03/17/19 06:00 RBC 2.85 X10^6/uL (4.7-6.0) L 03/17/19 06:00 Hgb 9.8 g/dL (13.5-18.0) L 03/17/19 06:00 Hct 28.1 % (42.0-54.0) L 03/17/19 06:00 MCV 98.4 fL (80.0-100.0) 03/17/19 06:00 MCH 34.3 pg (27.0-34.0) H 03/17/19 06:00 MCHC 34.9 g/dL (33.0-35.0) 03/17/19 06:00 RDW 17.2 % (11.6-16.5) H 03/17/19 06:00 Plt Count 194 X10^3/uL (150.0-450.0) 03/17/19 06:00 MPV 7.8 fL (7.4-11.0) 03/17/19 06:00 Neut % (Auto) 69.3 % (42.0-75.0) 03/17/19 06:00 Lymph % (Auto) 13.4 % (21.0-51.0) L 03/17/19 06:00 [place] % (Auto) 14.8 % (0.0-13.0) H 03/17/19 06:00 Eos % (Auto) 1.9 % (0.9-2.9) 03/17/19 06:00 Baso % (Auto) 0.6 % (0.2-1.0) 03/17/19 06:00 Neut # (Auto) 4.3 x10^3/uL (2.2-4.8) 03/17/19 06:00 Lymph # (Auto) 0.8 X10^3/uL (1.3-2.9) L 03/17/19 06:00 [place] # (Auto) 0.9 x10^3/uL (0.3-0.8) H 03/17/19 06:00 Eos # (Auto) 0.1 x10^3/uL (0.0-0.2) 03/17/19 06:00 Baso # (Auto) 0.0 X10^3/uL (0.0-0.1) 03/17/19 06:00 Absolute Nucleated RBC 0.2 /100WBC 03/17/19 06:00 PT 13.1 SECONDS (11.8-14.3) 03/15/19 04:38 INR Target Range - 03/15/19 04:38 INR 1.03 (0.8-1.3) 03/15/19 04:38 APTT 32.9 SECONDS (22.9-36.5) 03/14/19 23:59 PTT Comment - 03/14/19 23:59 Sodium 140 mmol/L (136-145) 03/17/19 06:00 Corrected Sodium TNP 03/17/19 06:00 Potassium 3.6 mmol/L (3.5-5.1) 03/17/19 06:00 Chloride 102 mmol/L (98-107) 03/17/19 06:00 Carbon Dioxide 30.8 mmol/L (21-32) 03/17/19 06:00 BUN 22 mg/dL (7-18) H 03/17/19 06:00 Creatinine 1.44 mg/dL (0.70-1.30) H 03/17/19 06:00 Est GFR (MDRD) Af Amer > 60 (>60) 03/17/19 06:00 Est GFR (MDRD) Non-Af 50 (>60) L 03/17/19 06:00 Glucose 91 mg/dL (65-99) 03/17/19 06:00 Calcium 9.4 mg/dL (8.5-10.1) 03/17/19 06:00 Corrected Calcium 10.0 mg/dL (8.5-10.1) 03/17/19 06:00 Magnesium 1.8 mg/dL (1.7-2.9) 03/15/19 04:38 Total Bilirubin 0.20 mg/dL (0.2-1.0) 03/17/19 06:00 AST 18 Units/L (15-37) 03/17/19 06:00 ALT 16 Units/L (12-78) 03/17/19 06:00 Alkaline Phosphatase 120 Units/L (46-116) H 03/17/19 06:00 Creatine Kinase 24 Units/L (39-308) L 03/15/19 04:38 CK-MB (CK-2) < 1.0 ng/mL (0-4.0) 03/15/19 04:38 CK/CKMB % Calc 4.2 % (<4) 03/15/19 04:38 Troponin I < 0.02 ng/mL (0-1.5) 03/15/19 04:38 Total Protein 7.3 g/dL (6.4-8.2) 03/17/19 06:00 Albumin 3.3 g/dL (3.4-5.0) L 03/17/19 06:00 Globulin 4.0 g/dL (2.5-4.5) 03/17/19 06:00 Albumin/Globulin Ratio 0.8 Ratio (1.1-2.1) L 03/17/19 06:00 Triglycerides 96 mg/dL (0-150) 03/15/19 04:38 Cholesterol 151 mg/dL (0-200) 03/15/19 04:38 LDL Cholesterol, Calc 87 mg/dL (0-100) 03/15/19 04:38 HDL Cholesterol 45 mg/dL (40-60) 03/15/19 04:38 Cholesterol/HDL Ratio 3.4 (0.0-5.0) 03/15/19 04:38 Specimen Type Clean catch urine 03/15/19 04:54 Urine Color Yellow (YELLOW) 03/15/19 04:54 Urine Appearance Clear (CLEAR) 03/15/19 04:54 Urine pH 6.5 (5.0 - 8.0) 03/15/19 04:54 Ur Specific Fisher 1.010 (1.000-1.030) 03/15/19 04:54 Urine Protein 1+ (NEGATIVE) 03/15/19 04:54 Urine Glucose (UA) Negative (NEGATIVE) 03/15/19 04:54 Urine Ketones Negative (NEGATIVE) 03/15/19 04:54 Urine Occult Blood Negative (NEGATIVE) 03/15/19 04:54 Urine Nitrite Negative (NEGATIVE) 03/15/19 04:54 Urine Bilirubin Negative (NEGATIVE) 03/15/19 04:54 Urine Urobilinogen Normal (NORMAL) 03/15/19 04:54 Ur Leukocyte Esterase Negative (NEGATIVE) 03/15/19 04:54 Urine RBC None seen /HPF (0-3) 03/15/19 04:54 Urine WBC None seen /HPF (0-5) 03/15/19 04:54 Ur Squamous Epith Cells Rare /HPF (NEGATIVE) 03/15/19 04:54 Urine Bacteria Negative /HPF (NEGATIVE) 03/15/19 04:54 Ur Culture Indicated? No/not indicated 03/15/19 04:54 - Plan (1) Dehydration Status: Acute Plan: IV FLUIDS, CONTINUE HOME MEDS, CONTINUE TO MONITOR (2) Acute bronchitis Status: Acute Qualifiers: Bronchitis organism: unspecified organism Qualified Code(s): J20.9 - Acute bronchitis, unspecified Plan: ROCEPHIN 1G IV DAILY, CONTINUE TO MONITOR (3) Intractable pain Status: Acute (4) Primary pancreatic cancer Status: Chronic (5) Weakness generalized Status: Acute (6) Parkinson disease Status: Chronic
--- NOTE | 2019-03-17 17:49 | PCM.PROG ---
Progress Note - Progress Note for Day of Date of Exam: 03/17/19 - Subjective Subjective: WAS ADMITTED FOR DEHYDRATION, BRONCHITIS, GENERALIZED WEAKNESS, AND INTRACTABLE HIP PAIN. 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 TODAY, HE IS ALERT AND ORIENTED, LYING IN BED ON MORNING ROUNDS. SPOUSE REPORTS THAT HE WAS CONFUSED AT TIMES THROUGHOUT THE NIGHT. SHE REPORTS THAT HE WAS ABLE TO STAND WITH ONLY MINIMAL ASSISTANCE YESTERDAY. ON EXAMINATION, HEART IS REGULAR IN RATE AND RHYTHM. BILATERAL LUNGS ARE NOTED WITH DIMINISHED LUNG SOUNDS THROUGHOUT. ABDOMEN IS ROUND, SOFT, AND NON-TENDER WITH NORMAL BOWEL SOUNDS NOTED IN ALL QUADRANTS. HIS VITALS THIS MORNING ARE: 98.1-60-20-96%-180/82. LABS WERE OBTAINED. ABNORMAL LAB VALUES INCLUDE THE FOLLOWING: RBC 2.85, HGB 9.8, HCT 28.1, BUN 22, CREATININE 1.44, ALK PHOS 120, ALBUMIN 3.3. HE IS CURRENTLY RECEIVING NORMAL SALINE AT 75 ML/HR, ROCEPHIN 1G IV DAILY, LASIX 20MG IV BID, AND HIS HOME MEDICATIONS WERE RESUMED. PHYSICAL THERAPY WILL CONTINUE TO WORK WITH PATIENT TODAY. OTHERWISE, WE WILL FOLLOW UP WITH AM LABS AND CONTINUE TO MONITOR - Past Medical Family Social History Past Med/Fam/Surg Hx: No changes since H&P Allergies: Allergies codeine Allergy (Verified 03/14/19 18:02) IVP DYE Allergy (Intermediate, Uncoded 03/14/19 18:02) - Review of Systems ROS: No change since H&P - Vital Signs and I&O's Vital Signs: Temperature 98.6 F Pulse Rate [Left] 64 Pulse Rate 91 Respiratory Rate 20 Blood Pressure [Left Arm] 186/78 Blood Pressure 126/75 O2 Sat by Pulse Oximetry 98 Intake and Output: Intake & Output 03/15/19 03/16/19 03/17/19 03/18/19 11:59 11:59 11:59 11:59 Intake Total 120 / 120 2230 / 2230 1390 / 1390 1160 / 1160 Output Total 500 / 500 200 / 200 Balance 120 / 120 1730 / 1730 1390 / 1390 960 / 960 - Physical Exam Oriented: Normal Eyes: Normal Ear: Normal Nose: Normal Throat: Normal Respiratory: Generalized, Diminished Cardiovascular: Normal : Normal Auscultation: Bowel Sounds: Normal Palpation: Normal Tenderness: Normal Skin: Decreased Turgur Musculoskeletal: Motor Deficit Psychiatric: Normal Mood Description: Calm Affect: Normal Speech Pattern: Clear, Appropriate - Laboratory and Diagnostics Result Diagrams: 03/17/19 06:00 03/17/19 06:00 Labs: Laboratory WBC 6.3 X10^3/uL (3.6-10.0) 03/17/19 06:00 RBC 2.85 X10^6/uL (4.7-6.0) L 03/17/19 06:00 Hgb 9.8 g/dL (13.5-18.0) L 03/17/19 06:00 Hct 28.1 % (42.0-54.0) L 03/17/19 06:00 MCV 98.4 fL (80.0-100.0) 03/17/19 06:00 MCH 34.3 pg (27.0-34.0) H 03/17/19 06:00 MCHC 34.9 g/dL (33.0-35.0) 03/17/19 06:00 RDW 17.2 % (11.6-16.5) H 03/17/19 06:00 Plt Count 194 X10^3/uL (150.0-450.0) 03/17/19 06:00 MPV 7.8 fL (7.4-11.0) 03/17/19 06:00 Neut % (Auto) 69.3 % (42.0-75.0) 03/17/19 06:00 Lymph % (Auto) 13.4 % (21.0-51.0) L 03/17/19 06:00 [place] % (Auto) 14.8 % (0.0-13.0) H 03/17/19 06:00 Eos % (Auto) 1.9 % (0.9-2.9) 03/17/19 06:00 Baso % (Auto) 0.6 % (0.2-1.0) 03/17/19 06:00 Neut # (Auto) 4.3 x10^3/uL (2.2-4.8) 03/17/19 06:00 Lymph # (Auto) 0.8 X10^3/uL (1.3-2.9) L 03/17/19 06:00 [place] # (Auto) 0.9 x10^3/uL (0.3-0.8) H 03/17/19 06:00 Eos # (Auto) 0.1 x10^3/uL (0.0-0.2) 03/17/19 06:00 Baso # (Auto) 0.0 X10^3/uL (0.0-0.1) 03/17/19 06:00 Absolute Nucleated RBC 0.2 /100WBC 03/17/19 06:00 PT 13.1 SECONDS (11.8-14.3) 03/15/19 04:38 INR Target Range - 03/15/19 04:38 INR 1.03 (0.8-1.3) 03/15/19 04:38 APTT 32.9 SECONDS (22.9-36.5) 03/14/19 23:59 PTT Comment - 03/14/19 23:59 Sodium 140 mmol/L (136-145) 03/17/19 06:00 Corrected Sodium TNP 03/17/19 06:00 Potassium 3.6 mmol/L (3.5-5.1) 03/17/19 06:00 Chloride 102 mmol/L (98-107) 03/17/19 06:00 Carbon Dioxide 30.8 mmol/L (21-32) 03/17/19 06:00 BUN 22 mg/dL (7-18) H 03/17/19 06:00 Creatinine 1.44 mg/dL (0.70-1.30) H 03/17/19 06:00 Est GFR (MDRD) Af Amer > 60 (>60) 03/17/19 06:00 Est GFR (MDRD) Non-Af 50 (>60) L 03/17/19 06:00 Glucose 91 mg/dL (65-99) 03/17/19 06:00 Calcium 9.4 mg/dL (8.5-10.1) 03/17/19 06:00 Corrected Calcium 10.0 mg/dL (8.5-10.1) 03/17/19 06:00 Magnesium 1.8 mg/dL (1.7-2.9) 03/15/19 04:38 Total Bilirubin 0.20 mg/dL (0.2-1.0) 03/17/19 06:00 AST 18 Units/L (15-37) 03/17/19 06:00 ALT 16 Units/L (12-78) 03/17/19 06:00 Alkaline Phosphatase 120 Units/L (46-116) H 03/17/19 06:00 Creatine Kinase 24 Units/L (39-308) L 03/15/19 04:38 CK-MB (CK-2) < 1.0 ng/mL (0-4.0) 03/15/19 04:38 CK/CKMB % Calc 4.2 % (<4) 03/15/19 04:38 Troponin I < 0.02 ng/mL (0-1.5) 03/15/19 04:38 Total Protein 7.3 g/dL (6.4-8.2) 03/17/19 06:00 Albumin 3.3 g/dL (3.4-5.0) L 03/17/19 06:00 Globulin 4.0 g/dL (2.5-4.5) 03/17/19 06:00 Albumin/Globulin Ratio 0.8 Ratio (1.1-2.1) L 03/17/19 06:00 Triglycerides 96 mg/dL (0-150) 03/15/19 04:38 Cholesterol 151 mg/dL (0-200) 03/15/19 04:38 LDL Cholesterol, Calc 87 mg/dL (0-100) 03/15/19 04:38 HDL Cholesterol 45 mg/dL (40-60) 03/15/19 04:38 Cholesterol/HDL Ratio 3.4 (0.0-5.0) 03/15/19 04:38 Specimen Type Clean catch urine 03/15/19 04:54 Urine Color Yellow (YELLOW) 03/15/19 04:54 Urine Appearance Clear (CLEAR) 03/15/19 04:54 Urine pH 6.5 (5.0 - 8.0) 03/15/19 04:54 Ur Specific [place] 1.010 (1.000-1.030) 03/15/19 04:54 Urine Protein 1+ (NEGATIVE) 03/15/19 04:54 Urine Glucose (UA) Negative (NEGATIVE) 03/15/19 04:54 Urine Ketones Negative (NEGATIVE) 03/15/19 04:54 Urine Occult Blood Negative (NEGATIVE) 03/15/19 04:54 Urine Nitrite Negative (NEGATIVE) 03/15/19 04:54 Urine Bilirubin Negative (NEGATIVE) 03/15/19 04:54 Urine Urobilinogen Normal (NORMAL) 03/15/19 04:54 Ur Leukocyte Esterase Negative (NEGATIVE) 03/15/19 04:54 Urine RBC None seen /HPF (0-3) 03/15/19 04:54 Urine WBC None seen /HPF (0-5) 03/15/19 04:54 Ur Squamous Epith Cells Rare /HPF (NEGATIVE) 03/15/19 04:54 Urine Bacteria Negative /HPF (NEGATIVE) 03/15/19 04:54 Ur Culture Indicated? No/not indicated 03/15/19 04:54 - Plan (1) Dehydration Status: Acute Plan: IV FLUIDS, CONTINUE HOME MEDS, CONTINUE TO MONITOR (2) Acute bronchitis Status: Acute Qualifiers: Bronchitis organism: unspecified organism Qualified Code(s): J20.9 - Acute bronchitis, unspecified Plan: ROCEPHIN 1G IV DAILY, CONTINUE TO MONITOR (3) Intractable pain Status: Acute (4) Primary pancreatic cancer Status: Chronic (5) Weakness generalized Status: Acute (6) Parkinson disease Status: Chronic
[2019-03-17] MEDS: HYTRIN PO SCH (21:53)
[2019-03-17] MEDS: TOPROL XL PO SCH (21:54)
[2019-03-17] MEDS: NexIUM PO SCH (21:54)
[2019-03-17] MEDS: ROCEPHIN VIAL 1 GRAM 1 G in NS 100 ML IV + SPIKE MINIBAG* 100 ML IV SCH (21:59)
[2019-03-18] MEDS: PERCOCET TAB 5/325 MG PO PRN ×2 (00:50→21:27)
[2019-03-18 06:35] LABS: BASOPHILS # (AUTO) 0.1 X10^3/uL (0.0-0.1); BASOPHILS % (AUTO) 0.9 % (0.2-1.0); EOSINOPHILS # (AUTO) 0.1 x10^3/uL (0.0-0.2); EOSINOPHILS % (AUTO) 2.1 % (0.9-2.9); HEMATOCRIT 27.1 % (42.0-54.0); HEMOGLOBIN 9.5 g/dL (13.5-18.0); LYMPHOCYTES # (AUTO) 1.1 X10^3/uL (1.3-2.9); MEAN CORPUSCULAR HEMOGLOBIN 34.1 pg (27.0-34.0); MEAN CORPUSCULAR HGB CONC 35.1 g/dL (33.0-35.0); MEAN CORPUSCULAR VOLUME 97.3 fL (80.0-100.0); MEAN PLATELET VOLUME 7.7 fL (7.4-11.0); MONOCYTES # (AUTO) 0.9 x10^3/uL (0.3-0.8); MONOCYTES % (AUTO) 14.3 % (0.0-13.0); NEUTROPHILS % (AUTO) 64.7 % (42.0-75.0); PLATELET COUNT 195 X10^3/uL (150.0-450.0); RED BLOOD COUNT 2.78 X10^6/uL (4.7-6.0); RED CELL DISTRIBUTION WIDTH 17.3 % (11.6-16.5); WHITE BLOOD COUNT 6.1 X10^3/uL (3.6-10.0)
[2019-03-18 06:50] LABS: ALANINE AMINOTRANSFERASE 11 Units/L (12-78); ALBUMIN 3.5 g/dL (3.4-5.0); ALKALINE PHOSPHATASE 120 Units/L (46-116); ASPARTATE AMINO TRANSFERASE 15 Units/L (15-37); BLOOD UREA NITROGEN 26 mg/dL (7-18); CALCIUM 9.1 mg/dL (8.5-10.1); CARBON DIOXIDE 28.3 mmol/L (21-32); CHLORIDE 102 mmol/L (98-107); COR NA(FOR HYPERGLY) 139 mmol/L (136-145); CREATININE 1.45 mg/dL (0.70-1.30); SODIUM 139 mmol/L (136-145); TOTAL PROTEIN 7.1 g/dL (6.4-8.2); eGFR NON BLACK RACES 50 (>60)
[2019-03-18] MEDS: NS 1000 ML 1,000 ML IV SCH ×2 (08:16→19:20)
[2019-03-18] MEDS ORDERED: LEXAPRO ONE (09:18)
[2019-03-18] MEDS: ALBUMIN HUMAN 25%- 100 ML 100 ML IV SCH (09:27)
[2019-03-18] MEDS: LASIX IVP SCH ×2 (09:28→21:27)
[2019-03-18] MEDS: ASPIRIN EC 81 MG PO SCH (09:28)
[2019-03-18] MEDS: LOVENOX INJ 40 MG SYR SC SCH (09:28)
[2019-03-18] MEDS: LEXAPRO PO SCH (09:29)
[2019-03-18] MEDS: DECADRON TAB PO SCH (09:29)
[2019-03-18] MEDS: COLACE CAP 100 MG PO SCH ×2 (09:29→21:26)
[2019-03-18] MEDS: ZINC SULFATE PO SCH (09:29)
[2019-03-18] MEDS: SYNTHROID 175 mcg TAB PO SCH (09:29)
[2019-03-18] MEDS: ZETIA TAB 10 MG PO SCH (09:29)
[2019-03-18] MEDS: VITAMIN D3 PO SCH (09:30)
[2019-03-18] MEDS ORDERED: TORADOL 30 MG VIAL IVP PRN (10:34)
[2019-03-18] MEDS ORDERED: POTASSIUM CHL 60 MEQ/NS 0.45% 500 ML IV PRN (11:28)
[2019-03-18] MEDS ORDERED: MICRO K EXTEN CAP 10 MEQ PO PRN (11:28)
[2019-03-18] MEDS ORDERED: POTASSIUM CHLORIDE LIQ 20 MEQ UDC PO PRN (11:28)
[2019-03-18] MEDS ORDERED: KLOR-CON PO PRN (11:28)
[2019-03-18] MEDS ORDERED: K-RIDER 10 MEQ/NS 100 ML 10 MEQ/100 ML BAG IV PRN (11:28)
[2019-03-18] MEDS ORDERED: POTASSIUM CHL 40 MEQ/NS 0.45% 500 ML IV PRN (11:28)
[2019-03-18] MEDS: NEURONTIN CAP 300 MG PO SCH ×3 (13:32→21:26)
[2019-03-18] MEDS: SINEMET (PLAIN) 25/250 MG PO SCH ×3 (13:33→21:26)
[2019-03-18] MEDS: MAGNESIUM SULFATE 1 GRAM/100 mL PREMIX 1 GM/100 ML BAG IV PRN ×2 (15:31→16:37)
[2019-03-18] MEDS: K-DUR TAB 20 MEQ PO PRN (17:35)
--- NOTE | 2019-03-18 18:16 | PCM.PROG ---
Progress Note - Progress Note for Day of Date of Exam: 03/18/19 - Subjective Subjective: WAS ADMITTED FOR DEHYDRATION, BRONCHITIS, GENERALIZED WEAKNESS, AND INTRACTABLE HIP PAIN. 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 TODAY, HE IS ALERT AND ORIENTED, LYING IN BED ON MORNING ROUNDS. SPOUSE REPORTS THAT HE WAS CONFUSED AT TIMES THROUGHOUT THE NIGHT. HE IS COOPERATING WELL WITH PHYSICAL THERAPY. HE REPORTS BILATERAL ANKLE PAIN TODAY. ON EXAMINATION, HEART IS REGULAR IN RATE AND RHYTHM. BILATERAL LUNGS ARE NOTED WITH DIMINISHED LUNG SOUNDS THROUGHOUT. ABDOMEN IS ROUND, SOFT, AND NON-TENDER WITH NORMAL BOWEL SOUNDS NOTED IN ALL QUADRANTS. HIS VITALS THIS MORNING ARE: 98.2-70-20-96%-194/53. LABS WERE OBTAINED. ABNORMAL LAB VALUES INCLUDE THE FOLLOWING: RBC 2.78, HGB 9.5, HCT 27.1, POTASSIUM 3.1, BUN 26, CREATININE 1.45, GLUCOSE 112, ALT 11, ALK PHOS 120. HE IS CURRENTLY RECEIVING NORMAL SALINE AT 75 ML/HR, ROCEPHIN 1G IV DAILY, LASIX 20MG IV BID, AND HIS HOME MEDICATIONS WERE RESUMED. PHYSICAL THERAPY WILL CONTINUE TO WORK WITH PATIENT TODAY. WE WILL START TORADOL 30MG IV Q6H PRN PAIN. OTHERWISE, WE WILL FOLLOW UP WITH AM LABS AND CONTINUE TO MONITOR - Past Medical Family Social History Past Med/Fam/Surg Hx: No changes since H&P Allergies: Allergies codeine Allergy (Verified 03/14/19 18:02) IVP DYE Allergy (Intermediate, Uncoded 03/14/19 18:02) - Review of Systems ROS: No change since H&P - Vital Signs and I&O's Vital Signs: Temperature 98.2 F Pulse Rate [Left] 66 Pulse Rate 91 Respiratory Rate 18 Blood Pressure [Right Arm] 169/81 Blood Pressure [Left Arm] 186/78 Blood Pressure 126/75 O2 Sat by Pulse Oximetry 96 Intake and Output: Intake & Output 03/16/19 03/17/19 03/18/19 03/19/19 11:59 11:59 11:59 11:59 Intake Total 2230 / 2230 1390 / 1390 2690 / 2690 1224 / 1224 Output Total 500 / 500 1275 / 1275 550 / 550 Balance 1730 / 1730 1390 / 1390 1415 / 1415 674 / 674 - Physical Exam Oriented: Normal Eyes: Normal Ear: Normal Nose: Normal Throat: Normal Respiratory: Generalized, Diminished Cardiovascular: Normal : Normal Auscultation: Bowel Sounds: Normal Palpation: Normal Tenderness: Normal Skin: Decreased Turgur Musculoskeletal: Motor Deficit Psychiatric: Normal Mood Description: Calm Affect: Normal Speech Pattern: Clear, Appropriate - Laboratory and Diagnostics Result Diagrams: 03/18/19 06:10 03/18/19 06:10 Labs: Laboratory WBC 6.1 X10^3/uL (3.6-10.0) 03/18/19 06:10 RBC 2.78 X10^6/uL (4.7-6.0) L 03/18/19 06:10 Hgb 9.5 g/dL (13.5-18.0) L 03/18/19 06:10 Hct 27.1 % (42.0-54.0) L 03/18/19 06:10 MCV 97.3 fL (80.0-100.0) 03/18/19 06:10 MCH 34.1 pg (27.0-34.0) H 03/18/19 06:10 MCHC 35.1 g/dL (33.0-35.0) H 03/18/19 06:10 RDW 17.3 % (11.6-16.5) H 03/18/19 06:10 Plt Count 195 X10^3/uL (150.0-450.0) 03/18/19 06:10 MPV 7.7 fL (7.4-11.0) 03/18/19 06:10 Neut % (Auto) 64.7 % (42.0-75.0) 03/18/19 06:10 Lymph % (Auto) 18.0 % (21.0-51.0) L 03/18/19 06:10 [place] % (Auto) 14.3 % (0.0-13.0) H 03/18/19 06:10 Eos % (Auto) 2.1 % (0.9-2.9) 03/18/19 06:10 Baso % (Auto) 0.9 % (0.2-1.0) 03/18/19 06:10 Neut # (Auto) 4.0 x10^3/uL (2.2-4.8) 03/18/19 06:10 Lymph # (Auto) 1.1 X10^3/uL (1.3-2.9) L 03/18/19 06:10 [place] # (Auto) 0.9 x10^3/uL (0.3-0.8) H 03/18/19 06:10 Eos # (Auto) 0.1 x10^3/uL (0.0-0.2) 03/18/19 06:10 Baso # (Auto) 0.1 X10^3/uL (0.0-0.1) 03/18/19 06:10 Absolute Nucleated RBC 0.2 /100WBC 03/18/19 06:10 PT 13.1 SECONDS (11.8-14.3) 03/15/19 04:38 INR Target Range - 03/15/19 04:38 INR 1.03 (0.8-1.3) 03/15/19 04:38 APTT 32.9 SECONDS (22.9-36.5) 03/14/19 23:59 PTT Comment - 03/14/19 23:59 Sodium 139 mmol/L (136-145) 03/18/19 06:10 Corrected Sodium 139 mmol/L (136-145) 03/18/19 06:10 Potassium 3.1 mmol/L (3.5-5.1) L 03/18/19 06:10 Chloride 102 mmol/L (98-107) 03/18/19 06:10 Carbon Dioxide 28.3 mmol/L (21-32) 03/18/19 06:10 BUN 26 mg/dL (7-18) H 03/18/19 06:10 Creatinine 1.45 mg/dL (0.70-1.30) H 03/18/19 06:10 Est GFR (MDRD) Af Amer 60 (>60) 03/18/19 06:10 Est GFR (MDRD) Non-Af 50 (>60) L 03/18/19 06:10 Glucose 112 mg/dL (65-99) H 03/18/19 06:10 Calcium 9.1 mg/dL (8.5-10.1) 03/18/19 06:10 Corrected Calcium TNP 03/18/19 06:10 Magnesium 1.7 mg/dL (1.7-2.9) 03/18/19 06:10 Total Bilirubin 0.20 mg/dL (0.2-1.0) 03/18/19 06:10 AST 15 Units/L (15-37) 03/18/19 06:10 ALT 11 Units/L (12-78) L 03/18/19 06:10 Alkaline Phosphatase 120 Units/L (46-116) H 03/18/19 06:10 Creatine Kinase 24 Units/L (39-308) L 03/15/19 04:38 CK-MB (CK-2) < 1.0 ng/mL (0-4.0) 03/15/19 04:38 CK/CKMB % Calc 4.2 % (<4) 03/15/19 04:38 Troponin I < 0.02 ng/mL (0-1.5) 03/15/19 04:38 Total Protein 7.1 g/dL (6.4-8.2) 03/18/19 06:10 Albumin 3.5 g/dL (3.4-5.0) 03/18/19 06:10 Globulin 3.6 g/dL (2.5-4.5) 03/18/19 06:10 Albumin/Globulin Ratio 1.0 Ratio (1.1-2.1) L 03/18/19 06:10 Triglycerides 96 mg/dL (0-150) 03/15/19 04:38 Cholesterol 151 mg/dL (0-200) 03/15/19 04:38 LDL Cholesterol, Calc 87 mg/dL (0-100) 03/15/19 04:38 HDL Cholesterol 45 mg/dL (40-60) 03/15/19 04:38 Cholesterol/HDL Ratio 3.4 (0.0-5.0) 03/15/19 04:38 Specimen Type Clean catch urine 03/15/19 04:54 Urine Color Yellow (YELLOW) 03/15/19 04:54 Urine Appearance Clear (CLEAR) 03/15/19 04:54 Urine pH 6.5 (5.0 - 8.0) 03/15/19 04:54 Ur Specific [place] 1.010 (1.000-1.030) 03/15/19 04:54 Urine Protein 1+ (NEGATIVE) 03/15/19 04:54 Urine Glucose (UA) Negative (NEGATIVE) 03/15/19 04:54 Urine Ketones Negative (NEGATIVE) 03/15/19 04:54 Urine Occult Blood Negative (NEGATIVE) 03/15/19 04:54 Urine Nitrite Negative (NEGATIVE) 03/15/19 04:54 Urine Bilirubin Negative (NEGATIVE) 03/15/19 04:54 Urine Urobilinogen Normal (NORMAL) 03/15/19 04:54 Ur Leukocyte Esterase Negative (NEGATIVE) 03/15/19 04:54 Urine RBC None seen /HPF (0-3) 03/15/19 04:54 Urine WBC None seen /HPF (0-5) 03/15/19 04:54 Ur Squamous Epith Cells Rare /HPF (NEGATIVE) 03/15/19 04:54 Urine Bacteria Negative /HPF (NEGATIVE) 03/15/19 04:54 Ur Culture Indicated? No/not indicated 03/15/19 04:54 - Plan (1) Dehydration Status: Acute Plan: IV FLUIDS, CONTINUE HOME MEDS, CONTINUE TO MONITOR (2) Acute bronchitis Status: Acute Qualifiers: Bronchitis organism: unspecified organism Qualified Code(s): J20.9 - Acute bronchitis, unspecified Plan: ROCEPHIN 1G IV DAILY, CONTINUE TO MONITOR (3) Intractable pain Status: Acute (4) Primary pancreatic cancer Status: Chronic (5) Weakness generalized Status: Acute (6) Parkinson disease Status: Chronic
[2019-03-18] MEDS: TOPROL XL PO SCH (21:26)
[2019-03-18] MEDS: HYTRIN PO SCH (21:26)
[2019-03-18] MEDS: NexIUM PO SCH (21:26)
[2019-03-18] MEDS: ROCEPHIN VIAL 1 GRAM 1 G in NS 100 ML IV + SPIKE MINIBAG* 100 ML IV SCH (21:29)
[2019-03-19] MEDS: NEURONTIN CAP 300 MG PO SCH (05:52)
[2019-03-19] MEDS: SINEMET (PLAIN) 25/250 MG PO SCH (05:53)
[2019-03-19 06:32] LABS: BASOPHILS % (AUTO) 0.5 % (0.2-1.0); EOSINOPHILS # (AUTO) 0.1 x10^3/uL (0.0-0.2); EOSINOPHILS % (AUTO) 1.1 % (0.9-2.9); HEMATOCRIT 28.5 % (42.0-54.0); HEMOGLOBIN 10.1 g/dL (13.5-18.0); LYMPHOCYTES # (AUTO) 1.4 X10^3/uL (1.3-2.9); LYMPHOCYTES % (AUTO) 19.3 % (21.0-51.0); MEAN CORPUSCULAR HEMOGLOBIN 34.3 pg (27.0-34.0); MEAN CORPUSCULAR HGB CONC 35.3 g/dL (33.0-35.0); MEAN PLATELET VOLUME 7.7 fL (7.4-11.0); MONOCYTES # (AUTO) 0.9 x10^3/uL (0.3-0.8); NEUTROPHILS # (AUTO) 4.6 x10^3/uL (2.2-4.8); NEUTROPHILS % (AUTO) 66.1 % (42.0-75.0); PLATELET COUNT 201 X10^3/uL (150.0-450.0); RED BLOOD COUNT 2.93 X10^6/uL (4.7-6.0)
[2019-03-19 06:47] LABS: ALANINE AMINOTRANSFERASE 12 Units/L (12-78); ALBUMIN 3.8 g/dL (3.4-5.0); ALKALINE PHOSPHATASE 108 Units/L (46-116); ASPARTATE AMINO TRANSFERASE 15 Units/L (15-37); BLOOD UREA NITROGEN 29 mg/dL (7-18); CALCIUM 9.3 mg/dL (8.5-10.1); CARBON DIOXIDE 28.4 mmol/L (21-32); CHLORIDE 100 mmol/L (98-107); SODIUM 138 mmol/L (136-145); TOTAL PROTEIN 7.6 g/dL (6.4-8.2); eGFR NON BLACK RACES 52 (>60)
[2019-03-19] MEDS: NS 1000 ML 1,000 ML IV SCH (07:51)
[2019-03-19 08:03] VITALS: BP 194/88
[2019-03-19] MEDS ORDERED: LEXAPRO ONE (08:33)
[2019-03-19] MEDS: ALBUMIN HUMAN 25%- 100 ML 100 ML IV SCH (08:44)
[2019-03-19] MEDS: ASPIRIN EC 81 MG PO SCH (08:46)
[2019-03-19] MEDS: K-DUR TAB 20 MEQ PO PRN (08:47)
[2019-03-19] MEDS: SYNTHROID 175 mcg TAB PO SCH (08:47)
[2019-03-19] MEDS: DECADRON TAB PO SCH (08:47)
[2019-03-19] MEDS: LEXAPRO PO SCH (08:47)
[2019-03-19] MEDS: COLACE CAP 100 MG PO SCH (08:47)
[2019-03-19] MEDS: LOVENOX INJ 40 MG SYR SC SCH (08:48)
[2019-03-19] MEDS: VITAMIN D3 PO SCH (08:51)
[2019-03-19] MEDS: ZINC SULFATE PO SCH (08:52)
[2019-03-19] MEDS: ZETIA TAB 10 MG PO SCH (08:52)
[2019-03-19] MEDS: LASIX IVP SCH (08:57)
== END 2019-03-19 11:00 | DRG 641 ==
LOC: MED/SURG 18:02 → ER 18:02 → MED/SURG 23:37
PROVIDERS: ADMIT Internal Medicine; ATTEND Internal Medicine
DX: R26.89 Other abnormalities of gait and mobility; R53.1 Weakness; R94.31 Abnormal electrocardiogram [ECG] [EKG]; Z92.21 Personal history of antineoplastic chemotherapy; G20 Parkinson's disease; E86.0 Dehydration; I10 Essential (primary) hypertension; M25.551 Pain in right hip; J20.9 Acute bronchitis, unspecified; R06.02 Shortness of breath; R60.0 Localized edema; C25.9 Malignant neoplasm of pancreas, unspecified; R41.82 Altered mental status, unspecified; I25.10 Atherosclerotic heart disease of native coronary artery without angina pectoris
CPT/HCPCS: 36415; 70450; 71010; 71045; 80053; 80061; 81001; 82550; 82553; 83735; 84484; 85025; 85610; 85730; 93005; 93970; 94760; 96365; 97110; 97112; 97116; 97163; 97166; 97530; 97535; 99284; A4222; G0378; J0696; J1650; J1885; J1940; J3475; J7030; J7050; J8540; P9047